=== PATIENT | male | born 1965 | race Two or more races ===

== ENCOUNTER 2022-12-16 13:32 | Outpatient (REF) | payer BC, SELFPAY ==
--- NOTE | ~2022-12-16 | XR_ITS ---
EXAMINATION: XR FOOT, RIGHT CLINICAL INFORMATION: Chronic ulcer of the port of right foot. COMPARISON: None available. TECHNIQUE: AP, lateral, and oblique views of the right foot. FINDINGS: Mild loss of PIP and DIP joints spaces 2nd through 5th digits is noted. There is dorsal intertarsal spurring and small calcaneal heel enthesophyte. There is a soft tissue abrasion ulceration along the plantar aspect of the great toe. No periosteal thickening or elevation to suspect any osteomyelitis. XR/XR foot RT min 3V IMPRESSION: Mild degenerative changes PIP and DIP joints. Soft tissue ulceration along the plantar aspect of the great toe. No underlying bony abnormality seen. There is no periosteal thickening or elevation to suspect any osteomyelitis.
== END 2022-12-16 13:33 | disposition home or self-care (01) ==
LOC: HO.XRAY 13:32
PROVIDERS: PCP Internal Medicine; Visit Provider Internal Medicine
DX: L97.519 Non-pressure chronic ulcer of other part of right foot with unspecified severity (principal)
CPT/HCPCS: 73630

== ENCOUNTER 2023-03-12 10:02 | Outpatient (REF) | payer BC, SELFPAY ==
[2023-03-12 10:19] LABS: MANUAL DIFF FLAG NO
[2023-03-12 10:44] LABS: Basophils Absolute Auto 0.1 X10*3/uL (0.0-0.2); Basophils Percent Auto 0.5 % (0-2); Eosinophils Absolute Auto 0.2 X10*3/uL (0.0-0.4); Eosinophils Percent Auto 1.7 % (0-4); Hematocrit 39.1 % (42.0-52.0); Hemoglobin 12.2 g/dl (14.0-18.0); Imm Gran Abs Auto 0.05 X10*3/uL (0.00-0.03); Imm Gran Pct Auto 0.4 % (0.0-0.4); Lymphocytes Absolute Auto 2.2 X10*3/uL (1.2-4.9); Lymphocytes Percent Auto 19.1 % (20-40); Mean Corpuscular HGB Conc 31.2 g/dl (31.0-36.0); Mean Corpuscular Hemoglobin 27.4 pg (27.0-33.0); Mean Corpuscular Volume 87.7 fL (80.0-98.0); Mean Platelet Volume 9.6 fL (9.4-12.4); Monocytes Absolute Auto 1.2 X10*3/uL (0.1-1.2); Monocytes Percent Auto 10.3 % (2-11); Neutrophils Absolute Auto 7.8 x10*3/uL (2.0-8.3); Platelet Count 391 X10*3/uL (160-400); Red Blood Count 4.46 X10*6/uL (4.60-5.80); Red Cell Distribution Width 17.1 % (11.0-16.0); White Blood Count 11.4 X10*3/uL (4.8-10.8)
[2023-03-12 10:55] LABS: Estimated Average Glucose 286 mg/dL; Hemoglobin A1c % 11.6 %
[2023-03-12 11:33] LABS: Alanine Aminotransferase 14 U/L (0-40); Albumin Level 3.7 g/dL (3.5-5.0); Alkaline Phosphatase 61 U/L (39-117); Anion Gap 16 (12-20); Aspartate Amino Transferase 16 U/L (5-37); Bilirubin Total 0.3 mg/dL (0.0-1.0); Blood Urea Nitrogen 9 mg/dL (9-16); Calcium 9.2 mg/dL (8.4-10.2); Carbon Dioxide 29 mmol/L (22-29); Chloride 99 mmol/L (96-108); Cholesterol 122 mg/dL; Estimated Glomerular Filt Rate > 60; Glucose Fasting 187 mg/dL (60-99); HDL Cholesterol 24 mg/dL; LDL Cholesterol Calculated 76 mg/dl; Potassium 4.1 mmol/L (3.3-5.1); Sodium 140 mmol/L (135-145); Total Protein 7.5 g/dL (6.5-8.0); Triglycerides 114 mg/dL
[2023-03-12 11:50] LABS: TSH reflex Free T4 3.01 uIU/mL (0.32-4.0); Vitamin D 25-OH Total 11.2 ng/mL (>30)
[2023-03-12 11:58] LABS: Appearance Urine Clear; Color Urine Yellow; Glucose Urine UA Negative (Negative); Leukocyte Esterase Urine Negative (Negative); Nitrite Urine Negative (Negative); PH 6.5 (5.0-9.0); Specific Gravity - Urine <= 1.005 (1.005-1.025); Urine Blood Negative (Negative); Urine Ketones Negative (Negative); Urine Protein Negative (Neg-Trace)
[2023-03-12 12:41] LABS: Creatinine Urine 23.24 mg/dL; Microalbum/Creatinine Ratio Ur 21.5 ug/mg cr
== END 2023-03-12 10:03 | disposition home or self-care (01) ==
LOC: HO.LAB 10:02
PROVIDERS: PCP Internal Medicine; Visit Provider Internal Medicine
DX: E11.9 Type 2 diabetes mellitus without complications (principal); R30.0 Dysuria; E55.9 Vitamin D deficiency, unspecified; I10 Essential (primary) hypertension; E78.00 Pure hypercholesterolemia, unspecified
CPT/HCPCS: 36415; 80053; 80061; 81003; 82043; 82306; 83036; 84443; 85025

== ENCOUNTER 2023-03-14 14:11 | Outpatient (AMB) | payer BC, SELFPAY ==
[2023-03-14 14:18] VITALS: BP 122/78; PULSE 67; O2SAT 95; BMI 38.1
--- NOTE | 2023-03-14 14:18 | A.OFFPC_ITS ---
Vital Signs 03/14/23 14:18 Height 5 ft 11 in Weight 273 lb 2 oz BMI 38.1 BP 122/78 Blood Pressure Location Lt brachial Position Sitting Pulse 67 Pulse Source Pulse Oximeter Pulse Oximetry (%) 95 Oxygen Delivery Method Room Air Intake Visit Reasons: DM, hyperlipidemia, chronic AF, neuropathy, COPD Senior Statistician Required: No Accompanied by: Self / Same As Patient Allergies bupropion Adverse Reaction (Severe, Verified 03/16/23 17:41) manic olanzapine Adverse Reaction (Severe, Verified 03/16/23 17:41) weight gain sulfa drugs Allergy (Severe, Uncoded 03/16/23 17:41) Rash Medication List - Last Reconciled 03/16/23 by Phil Voss MD atorvastatin 20 mg PO BEDTIME cariprazine (Vraylar) 4.5 mg PO DAILY cholecalciferol (vitamin D3) 50 mcg PO DAILY 90 days clonazepam 1 mg PO BEDTIME divalproex ER (Depakote ER) 1,000 mg PO DAILY [id number]-qcrytgmiu-fimsnlpk 100-62.5-25 mcg (Trelegy Ellipta) 1 inh inhalation DAILY gabapentin 600 mg PO TID 90 days insulin glargine (Basaglar KwikPen U-100 Insulin) 42 units subcut QAM insulin lispro (Humalog KwikPen (U-100) Insulin) 10 units subcut TID metformin 2,000 mg PO BEDTIME metoprolol succinate ER 50 mg PO DAILY rivaroxaban (Xarelto) 20 mg PO QPM Tobacco use date assessed: 03/14/23 Dental Screening Dental Screen Date: 03/14/23 Did you have a dental visit in the last 12 months?: Yes Did you have a dental problem in the last 6 months where you did not have access to dental care?: No Was dental information given to patient?: Patient has dentist HPI DM, hyperlipidemia, chronic AF, neuropathy, COPD HPI Details Patient comes in today for his follow up visit States that his suddenly earlier this week from a heart attack and he is still in shock regarding her sudden passing Admits that he has been having trouble remembering to take his lunch time and dinner time dose of Humalog regularly States that his used to be the one to help remind him to take his meds on time but now with her passing away, he does not know what to do He acknowledges that he has become very forgetful and his memory is failing lately; feels that he is starting to lose his cognitive abilities ever since his 2nd manic episode from September 2021 through October 2022, when his psychiatrist inexplicably took him off all of his meds and started him on Bupropion instead Recall that he did not do well at all on Bupropion and his symptoms started stabilizing again after they insisted that his psychiatrist start him back on all his previous medications He has been following up with Dr. Bowman at [facility] for his diabetes for a while now but does not feel that his condition is improving or under control and would like to see if he can be referred to somebody else to help control his diabetes better He denies any headaches or dizziness Denies any chest pains, no shortness of breath No nausea/ vomiting, no abdominal pain No change in bowel habits noted Needs his Gabapentin Rx refilled Had his follow-up labs done a couple of days ago - to discuss his results [facility] Medical History (Updated 03/16/23 @ 18:22 by Phil Voss MD) Asthma-COPD overlap syndrome Bipolar disorder Chronic atrial fibrillation Chronic ulcer of right foot Diabetes mellitus Diabetic neuropathy Insomnia Obesity (BMI 30-39.9) Pacemaker Pure hypercholesterolemia Vitamin D deficiency Surgical History Status post biventricular cardiac pacemaker insertion (~08/2021) Family History Other Mesothelioma Social History Housing: House Patient Tobacco Use Status: Former Tobacco user Tobacco use type: Cigarette e-Cigarette/Vaping Use: Currently Using Second Hand Smoke Exposure: No service: No Current occupational status: retired Current occupational exposures/hazards: No Cognitive needs: No Hearing needs: No Vision needs: No Questionnaire PHQ-9 Over the last 2 weeks, how often have you been bothered by any of the following problems? 1. Little interest or pleasure in doing things: more than half the days 2. Feeling down, depressed, or hopeless: more than half the days 3. Trouble falling or staying asleep, or sleeping too much: more than half the days 4. Feeling tired or having little energy: more than half the days 5. Poor appetite or overeating: more than half the days 6. Feeling bad about yourself - or that you are a failure or have let yourself or your family down: more than half the days 7. Trouble concentrating on things, such as reading the newspaper or watching television: more than half the days 8. Moving or speaking so slowly that other people could have noticed. Or the opposite - being so fidgety or restless that you have been moving around a lot more than usual: more than half the days 9. Thoughts that you would be better off or of hurting yourself in some way: not at all Total score: 16 Depression Screening Interpretation: Positive Depression Screening Follow-up: Existing condition and In treatment 88350 - PHQ-9 Billing: Yes Source: Developed by Drs. Tone Vogt, Dinora Damon, Jovan Shaikh and colleagues, with an educational kayla from [employer]. Thrive Questionnaire Date Thrive assessed: 03/14/23 I am a: Patient What is your living situation today?: I have a steady place to live Within the past 12 months, did the food you bought not last and you didn't have the money to get more?: Never true Within the past 12 months, did you worry whether your food would run out before you got money to buy more?: Never true Do you have trouble paying for medicines?: No Do you have trouble getting transportation to medical appointments?: No Do you have trouble paying your heating and electricity bill?: No Do you have trouble taking care of your child, family member or friend?: No Do you have trouble with day-to-day activities such as bathing, preparing meals, shopping, managing finances, etc.?: No Are you currently unemployed and looking for a job?: No Are you interested in more education?: No Currently or been in a relationship where the following occur: no concerns reported AUDIT C Alcohol Use Questionnaire (AUDIT-C) 1. How often do you have a drink containing alcohol?: Never 3. How often do you have six or more drinks on one occasion?: Never Total Score: 0 Score Reviewed/Action Taken: Yes TIMI-7 AMB Questionnaire TIMI-7 Date TIMI - 7 assessed: 03/14/23 Feeling nervous, anxious, or on edge: 2 = More than half the days Not being able to stop or control worryin = More than half the days Worrying too much about different things: 2 = More than half the days Trouble relaxin = More than half the days Being so restless that it is hard to sit still: 2 = More than half the days Becoming easily annoyed or irritable: 2 = More than half the days Feeling afraid as if something awful might happen: 2 = More than half the days Total ITMI-7 score (0-4 normal; 5-9 mild; 10-14 moderate; 15-21 severe): 14 Source: Developed by Drs. Tone Vgot, Dinora Damon, Jovan Shaikh and colleagues, with an educational kayla from [employer]. Review of Systems Const Denies chills, Denies fatigue, Denies fever(s) and Denies headache(s) ENT Denies dysphagia, Denies dizziness, Denies otalgia, Denies headache(s), Denies odynophagia and Denies sore throat Card Denies chest pain, Denies palpitations and Denies dyspnea Resp Denies cough and Denies dyspnea GI Denies abdominal pain, Denies constipation, Denies dysphagia, Denies heartburn, Denies diarrhea, Denies nausea, Denies odynophagia and Denies vomiting Denies dysuria, Reports nocturia and Reports urinary frequency Musc Reports numbness (both feet - chronic) Skin/Breast Details: (+) chronic ulcer on the ball of the right foot Neuro Denies dizziness, Denies headache(s), Reports memory loss and Reports numbness (both feet - chronic) Psych Reports memory loss Endo Denies fatigue and Denies palpitations Physical exam (Primary Care) Vital Signs: Last Vital Signs Pulse 67 03/14/23 14:18 BP 122/78 03/14/23 14:18 Pulse Ox 95 03/14/23 14:18 Oxygen Delivery Method Room Air 03/14/23 14:18 BMI result Body Mass Index 38.1 Tobacco/Smoking Status: Tobacco use Status Tobacco use date assessed 03/14/23 03/14/23 14:27 Patient Tobacco Use Status Former Tobacco user 03/14/23 14:27 Tobacco use type Cigarette 03/14/23 14:27 e-Cigarette/Vaping Use Currently Using 03/14/23 14:27 PHQ-9: PHQ-9 Score PHQ-9: Total score 16 03/14/23 15:05 Depression Screening Interpretation: Positive Depression Screening Follow-up: Existing condition and In treatment Thrive Assessment: Date of Thrive Assessment Date Thrive assessed 03/14/23 03/14/23 14:27 Currently or been in a relationship where the following occur: no concerns reported Const General: no acute distress and alert HENMT Ears: TM's normal bilaterally and EAC's normal Throat: Yes posterior oropharynx normal and Yes tonsils normal (no TP congestion) Neck Neck: Yes no lymphadenopathy and Yes supple Resp Auscultation: clear to auscultation bilaterally, no rales and no wheezes Cardio Rate: regular rate Rhythm: abnormal rhythm irregularly irregular Heart sounds: no murmurs GI Palpation (GI): Soft to palpation and nontender Auscultation: normal bowel sounds Skin Other: (+) chronic ulcer on the bottom of the right foot, just posterior to the ball of the foot Extrem General: Yes no clubbing, cyanosis or edema Right lower extremity: foot ((+) ulcer on the bottom of the foot) Results Reviewed Results Reviewed: Laboratory Tests 03/12/23 03/12/23 03/12/23 10:06 10:15 10:17 WBC 11.4 H Hgb 12.2 L Hct 39.1 L Plt Count 391 Sodium Potassium Creatinine Estimated GFR Fasting Glucose Hemoglobin A1c % Calcium Triglycerides Cholesterol LDL Cholesterol, Calc HDL Cholesterol 25-OH Vitamin D Total TSH Ur Specific [place] <= 1.005 Urine Protein Negative Urine Glucose (UA) Negative Urine Blood Negative Microalb/Creat Ratio 21.5 03/12/23 03/12/23 10:17 10:17 WBC Hgb Hct Plt Count Sodium 140 Potassium 4.1 Creatinine 1.16 Estimated GFR > 60 Fasting Glucose 187 H Hemoglobin A1c % 11.6 Calcium 9.2 Triglycerides 114 Cholesterol 122 LDL Cholesterol, Calc 76 HDL Cholesterol 24 25-OH Vitamin D Total 11.2 TSH 3.01 Ur Specific [place] Urine Protein Urine Glucose (UA) Urine Blood Microalb/Creat Ratio Assessment and Plan Assessment & Plan (1) Diabetes mellitus: Code(s): E11.9 - Type 2 diabetes mellitus without complications Qualifiers: Diabetes mellitus complication status: with hyperglycemia Diabetes mellitus fpc insulin use: with fpc use Diabetes mellitus type: type 2 Qualified Code(s): E11.65 - Type 2 diabetes mellitus with hyperglycemia; 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 Plan: HgbA1c was at 11.6% on his labs done a couple of days ago (in-office HgbA1c was at 10.9% a few months ago) - goal is <7.0% Reinforced diabetic diet Continue Basaglar 42 units Q AM, Humalog Kwikpen 10 units TID with meals and Metformin ER 2000 mg Q HS but patient admits that he has been having a hard time remembering to take his lunch time and dinner time dose of Humalog States that he has been struggling with his memory since his bipolar break from last year to early this year and feels that he is losing some of his cognitive abilities States that his , who was a retired nurse, was the one who was helping him with these but since she suddenly earlier this week, he does not know what he can do now and is looking for some help Will try referring him to [facility] for both medication administration and for wound care services on his chronic foot wound Patient also used to follow up with Dr. Bowman at [facility] for endocrinology but would like to try seeing someone else as he does not feel like seeing Dr. Bowman is working out for him Will try referring him to Dr. Sauer instead (2) Diabetic neuropathy: Code(s): E11.40 - Type 2 diabetes mellitus with diabetic neuropathy, unspecified Qualifiers: Diabetes mellitus complication detail: diabetic autonomic neuropathy Diabetes mellitus type: type 2 Qualified Code(s): E11.43 - Type 2 diabetes mellitus with diabetic autonomic (poly)neuropathy Plan: Continue Gabapentin 600 mg TID (3) Chronic ulcer of right foot: Comment: on the ball of the foot Code(s): L97.519 - Non-pressure chronic ulcer of other part of right foot with unspecified severity Qualifiers: Non-pressure ulcer stage: unspecified non-pressure ulcer stage Qualified Code(s): L97.519 - Non-pressure chronic ulcer of other part of right foot with unspecified severity Plan: Right foot x-rays done a few months ago in December 2022 revealed (+) mild degenerative changes PIP and DIP joints and soft tissue ulceration along the plantar aspect of the great toe with NO underlying bony abnormality seen and NO periosteal thickening or elevation to suggest any osteomyelitis He used to follow up with [facility] in [place] but with his 's sudden passing, does not know if he can continue to go see them Will try referring him to [facility] for wound care services (4) Pure hypercholesterolemia: Code(s): E78.00 - Pure hypercholesterolemia, unspecified Plan: Results of his labs done a couple of days ago reviewed and discussed with patient Reinforced low cholesterol diet Continue Atorvastatin 20 mg QD Will have patient recheck his labs in 3 months for follow up (5) Chronic atrial fibrillation: Code(s): I48.20 - Chronic atrial fibrillation, unspecified Plan: S/P pacemaker insertion in August 2021 Patient currently remains asymptomatic Continue Xarelto 20 mg Q PM for thromboembolism prophylaxis Follow up with cardiology and with EPS specialist in [place] as scheduled (6) Asthma-COPD overlap syndrome: Code(s): J44.9 - Chronic obstructive pulmonary disease, unspecified Plan: Continue Trelegy Ellipta 100-62.5-25 mcg 1 inhalation QD and Albuterol HFA 2 inhalations Q 6 hours PRN Follow up with pulmonary as scheduled (7) Vitamin D deficiency: Code(s): E55.9 - Vitamin D deficiency, unspecified Plan: Patient is advised that his vitamin-D level was very low on his recent labs Will start him on Vitamin D3 2000 units QD (8) Insomnia: Code(s): G47.00 - Insomnia, unspecified Qualifiers: Insomnia type: unspecified Qualified Code(s): G47.00 - Insomnia, unspecified Plan: Sleep hygiene reinforced Continue Temazepam 7.5 mg Q HS PRN (9) Bipolar disorder: Code(s): F31.9 - Bipolar disorder, unspecified Qualifiers: Active/Remission status: currently active Current bipolar episode type: mixed Current episode severity: unspecified Qualified Code(s): F31.60 - Bipolar disorder, current episode mixed, unspecified Plan: Continue Vraylar 4.5 mg QD and Depakote ER 1000 mg QD Follow up with psychiatric nurse ([employer] [employer]) at [facility] in [place], [place] as scheduled Patient was also reportedly evaluated further by psychiatry up at the [facility] in [place] a couple of months ago - states that this was a second opinion with regards to his diagnoses of bipolar disorder as he feels that he was wrongfully diagnosed in the past (10) Obesity (BMI 30-39.9): Code(s): E66.9 - Obesity, unspecified Plan: Reinforced diet and weight loss; exercise is unrealistic given his neuropathy and multiple comorbidities Plan Follow up in 3 months Orders: Orders Hemoglobin A1c 3 Months E11.9 - Type 2 diabetes mellitus without complications Lipid Panel 3 Months E78.00 - Pure hypercholesterolemia, unspecified Comprehensive [place]. Panel Fast 3 Months E78.00 - Pure hypercholesterolemia, unspecified Complete Blood Count Auto Diff 3 Months I10 - Essential (primary) hypertension Vitamin B12 and Folate 3 Months E53.8 - Deficiency of other specified B group vitamins TSH reflex Free T4 3 Months E78.00 - Pure hypercholesterolemia, unspecified Vitamin D 25-OH Total 3 Months E55.9 - Vitamin D deficiency, unspecified Microalbumin, Random (w Creat) 3 Months E11.9 - Type 2 diabetes mellitus without complications UA CC w/rflx Micro + Cult 3 Months R30.0 - Dysuria Referrals Endocrinology Referral E11.9 - Type 2 diabetes mellitus without complications [facility] Referral E11.9 - Type 2 diabetes mellitus without complications, F31.9 - Bipolar disorder, unspecified, L97.519 - Non-pressure chronic ulcer of other part of right foot with unspecified severity Medications: New cholecalciferol (vitamin D3) 50 mcg PO DAILY 90 days 90 caps 3RF E55.9 - Vitamin D deficiency, unspecified Changed From gabapentin 600 mg PO TID To gabapentin 600 mg PO TID 90 days 270 tabs 1RF Coding Level of Care Code Est Pt Level 4 (93786) Diagnoses Diabetes mellitus E11.65; Z79.4 Diabetes mellitus complication status: with hyperglycemia 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: with bowling ball molder use Diabetes mellitus type: type 2 Diabetic neuropathy E11.43 Diabetes mellitus complication detail: diabetic autonomic neuropathy Diabetes mellitus type: type 2 Chronic ulcer of right foot L97.519 Non-pressure ulcer stage: unspecified non-pressure ulcer stage Pure hypercholesterolemia E78.00 Chronic atrial fibrillation I48.20 Asthma-COPD overlap syndrome J44.9 Vitamin D deficiency E55.9 Insomnia G47.00 Insomnia type: unspecified Bipolar disorder F31.60 Active/Remission status: currently active Current bipolar episode type: mixed Current episode severity: unspecified Obesity (BMI 30-39.9) E66.9
== END 2023-03-14 15:14 | disposition home or self-care (01) ==
PROVIDERS: PCP Internal Medicine; Visit Provider Internal Medicine
DX: E11.65 Type 2 diabetes mellitus with hyperglycemia (principal); Z79.4 Long term (current) use of insulin; F31.60 Bipolar disorder, current episode mixed, unspecified; E55.9 Vitamin D deficiency, unspecified; E11.43 Type 2 diabetes mellitus with diabetic autonomic (poly)neuropathy; L97.519 Non-pressure chronic ulcer of other part of right foot with unspecified severity; E78.00 Pure hypercholesterolemia, unspecified; I48.20 Chronic atrial fibrillation, unspecified; J44.9 Chronic obstructive pulmonary disease, unspecified; G47.00 Insomnia, unspecified; E66.9 Obesity, unspecified
CPT/HCPCS: 99214

== ENCOUNTER 2023-04-16 12:15 | Emergency (ER) | payer BC, SELFPAY ==
--- NOTE | ~2023-04-16 | XR_ITS ---
EXAMINATION: XR CHEST 2 VIEW CLINICAL INFORMATION: Shortness of breath COMPARISON: None TECHNIQUE: PA and lateral views of the chest obtained. FINDINGS: A left subclavian conduction device is present. Patchy airspace opacities are evident in the left lower lobe. Minimal linear scar or atelectasis is present at the right lung base. There are no pleural effusions. The cardiomediastinal silhouette is unremarkable. XR/XR chest 2V IMPRESSION: 1. Left lower lobe airspace opacities compatible with atelectasis or pneumonia. Follow-up is recommended to confirm clearing.
[2023-04-16 12:23] VITALS: BP 116/62; PULSE 62; RESP 20; TEMP 36.6; O2SAT 96; BMI 41.4
--- NOTE | 2023-04-16 12:27 | ED.GENADULT ---
HPI - General Adult General Chief complaint: Upper Respiratory Symptoms Stated complaint: COVID Symptoms Sent by [facility] Time Seen by Provider: 04/16/23 12:30 Source: patient Mode of arrival: ambulatory Limitations: no limitations History of Present Illness HPI narrative: 57 y/o history of AFib on Xarelto, COPD/ asthma, HLD, DM, bipolar disorder who presents to the ER for evaluation of 1 week of productive cough, shortness of breath and some headaches. He states he has been bringing up yellow phlegm. He has been around people who have had COVID. He states his symptoms when worsening over the last week. He wears a smart watch that reported a desaturation in his oxygen level to 87% that red 15 hours ago. He denies any changes in his heart rates noted on the watch. He denies any chest pain. He states he is sore all over from coughing. His cough is keeping him up at night. MD complaint: Productive cough and shortness of breath Onset (ago): week(s) (1) Location: chest Radiation: non-radiation Severity: moderate Quality: aching Pain Consistency: constant Relieving factors: rest Exacerbating factors: movement Associated symptoms: cough, fever/chills, headaches, loss of appetite, malaise and shortness of breath Treatments prior to arrival: none Related Data Home Medications Medication Instructions Recorded Confirmed atorvastatin 20 mg tablet 20 mg PO BEDTIME 12/11/22 03/16/23 cariprazine 4.5 mg capsule 4.5 mg PO DAILY 12/11/22 03/16/23 (Vraylar) divalproex 500 mg tablet,extended 1,000 mg PO DAILY 12/11/22 03/16/23 release 24 hr (Depakote ER) fluticasone fur. 100 mcg-umeclid 1 inh inhalation DAILY 12/11/22 03/16/23 62.5 mcg-vilant 25 mcg inhalat.powder (Trelegy Ellipta) insulin glargine 100 unit/mL (3 42 unit subcut QAM 12/11/22 03/16/23 mL) subcutaneous pen (Basaglar KwikPen U-100 Insulin) insulin lispro 100 unit/mL 10 unit subcut TID 12/11/22 03/16/23 subcutaneous pen (Humalog KwikPen (U-100) Insulin) metformin 500 mg tablet 2,000 mg PO BEDTIME 12/11/22 03/16/23 rivaroxaban 20 mg tablet (Xarelto) 20 mg PO QPM 12/11/22 03/16/23 clonazepam 1 mg tablet 1 mg PO BEDTIME 03/14/23 03/16/23 metoprolol succinate 50 mg 50 mg PO DAILY 03/14/23 03/16/23 tablet,extended release 24 hr Previous Rx's Medication Instructions Recorded cholecalciferol (vitamin D3) 50 50 mcg PO DAILY 90 days #90 caps 03/14/23 mcg (2,000 unit) capsule gabapentin 600 mg tablet 600 mg PO TID 90 days #270 tabs 03/14/23 amoxicillin-potassium clavulanate 1 tab PO BID 7 days #14 tabs 04/16/23 1,000 mg-62.5 mg tablet,ext.rel 12hr (Augmentin XR) azithromycin 250 mg tablet See Rx Instructions PO .COMPLEX #6 04/16/23 (Zithromax Z-Rock) tabs prednisone 50 mg tablet 50 mg PO DAILY 5 days #5 tabs 04/16/23 Allergies Allergy/AdvReac Type Severity Reaction Status Date / Time bupropion AdvReac Severe manic Verified 04/16/23 12:28 olanzapine AdvReac Severe weight gain Verified 04/16/23 12:28 sulfa drugs Allergy Severe Rash Uncoded 04/16/23 12:28 Review of Systems Review of Systems: Yes all other systems are reviewed and are negative [facility] Past Medical History Medical History (Updated 04/16/23 @ 14:56 by ISMA Villavicencio) Vitamin D deficiency Chronic ulcer of right foot Diabetic neuropathy Bipolar disorder Chronic atrial fibrillation Asthma-COPD overlap syndrome Obesity (BMI 30-39.9) Insomnia Pure hypercholesterolemia Diabetes mellitus Pacemaker Surgical History Status post biventricular cardiac pacemaker insertion (~08/2021) Family History Family History Other Mesothelioma Social History Social History Housing: House Patient Tobacco Use Status: Former Tobacco user Tobacco use type: Cigarette e-Cigarette/Vaping Use: Currently Using Second Hand Smoke Exposure: No Advance Directives: No service: No Current occupational status: retired Current occupational exposures/hazards: No Cognitive needs: No Hearing needs: No Vision needs: No Physical Exam ED Vital Signs: Vital Signs - 24 hr 04/16/23 12:23 Temperature 97.8 F Pulse Rate 62 Respiratory Rate 20 Blood Pressure 116/62 Pulse Oximetry 96 Oxygen Delivery Method Room Air BMI result Body Mass Index 41.4 Appearance: Alert. Oriented X3. No acute distress. Head: normocephalic, atraumatic. Eyes: Pupils equal, round and reactive to light. ENT: Pharynx normal. No tonsillar swelling or exudate. Neck: Normal inspection. Neck supple. CVS: Normal heart rate and rhythm. Pulses normal. Respiratory: No respiratory distress. Breath sounds diminished at bilateral bases, no wheezes or rhonchi. Abdomen: Soft and nontender. +BS x4 Skin: Skin warm and dry. Normal skin color. Normal skin turgor. No rashes. Extremities: No lower extremity edema. No joint swelling. Neuro/psych: Oriented X 3. No motor deficit. No sensory deficit. CN II-XII intact. Normal speech and cognition. Course Course Course Narrative: RME- 57 year old male presents for evaluation of cough and shortness of breath for the last week. Plan for covid swab and chest x-ray. Denies chest pain, vitals are stable Medical Decision Making Medical Decision Making MDM Narrative: 49-year-old male with history of asthma/ COPD, bipolar, AFib on Xarelto, status post permanent pacemaker, diabetes, HLD who presents to the ER for evaluation of productive cough and shortness of breath for the last 1 week. On arrival to the ER his vital signs are stable. He has no wheezing on examination and is breathing comfortably. He has some bilateral diminished breath sounds but no adventitious breath sounds. His heart is regular. He is not tachycardic. Chest x-ray showed left lower lobe opacity consistent with possible pneumonia vs atelectasis. he does have positive for COVID-19. No role for Paxlovid given his sxs 7 days. will cover for possible superimposed bacterial pneumonia with azithromycin for atypical coverage in Augmentin for community-acquired pneumonia. He was ambulated in the emergency department and had no desaturations. He had no shortness of breath or dyspnea. At this time he is stable for discharge home with course of prednisone and antibiotics. He will use albuterol inhaler and nebulizer as needed for shortness of breath and wheezing. Recommended close outpatient follow-up and strict return precautions were given to the patient. Stable for discharge home. Differential Diagnosis Differential Diagnoses: The differential diagnosis associated with the presentation includes strep, covid, flu, rsv, other viral syndrome, bronchitis, pneumonia, COPD exacerbation, CHF exacerbation, doubt PE he is already anticoagulation Admission/Observation Consideration of admission/observation: Escalation of care including admission/observation considered multiple comorbidities with shortness of breath, considered observation/admission Lab Data MDM Lab Attestation statement: I reviewed the patient's lab results. Labs: Lab Results 04/16/23 Range/Units 12:25 COVID-19 (ALICIA) Positive A (Negative) COVID-19 Clin Com See Note Independent Interpretation I performed an independent interpretation of an: Plain X-Ray Interpretation: LLL opacity, agree w/ radiology read Radiology Impression Discussion of test interpretation with radiology: I have reviewed the radiologist's reading. Radiologist Impression: EXAMINATION: XR CHEST 2 VIEW CLINICAL INFORMATION: Shortness of breath COMPARISON: None TECHNIQUE: PA and lateral views of the chest obtained. FINDINGS: A left subclavian conduction device is present. Patchy airspace opacities are evident in the left lower lobe. Minimal linear scar or atelectasis is present at the right lung base. There are no pleural effusions. The cardiomediastinal silhouette is unremarkable. XR/XR chest 2V IMPRESSION: 1. Left lower lobe airspace opacities compatible with atelectasis or pneumonia. Follow-up is recommended to confirm clearing. External Record Review External record reviewed: Office record, Outpatient record and Prior outpatient labs Tests considered The following testing was considered but not selected: considered EKG and labs Prescription Management I considered prescription management with: Antiviral and Antibiotic Chronic Conditions Patient?s care impacted by: Hypertension and Other (asthma/COPD, afib) Critical Care Time Critical Care Time Critical Care Time: No Discharge Plan Discharge Clinical Impression: COVID-19 Patient Disposition: Home, Self-Care Instructions: Covid-19 Viral Syndrome and Novel Coronavirus (ED) Hey/Ath Additional Instructions: You were found to be COVID-19 POSITIVE today. Your lung exam and oxygen levels were normal. Your chest x-ray showed possible left lower lobe pneumonia. If you develop new or worsening symptoms call 911 or come back to the ER for further evaluation. Recommend getting an [id number] her pulse oximeter to monitor your oxygen saturations at home. Rest. Drink plenty of fluids. Do not go out in public while you are not feeling well. Take over the counter cold/flu medications as needed for your symptoms. Take Tylenol and/or Motrin as needed for fevers and body aches. Follow up with your doctor this week. If you shortness of breath worsens, if you develop difficulty breathing or any other concerning symptom come back to the ER for further evaluation. Prescriptions: New azithromycin [Zithromax Z-Rock] 250 mg tablet See Rx Instructions .ROUTE .COMPLEX Qty: 6 0RF Rx Instructions: take 500 mg today (day 1), then 250 mg for 4 days (days 2-5) amoxicillin-pot clavulanate [Augmentin XR] 1,000-62.5 mg tablet extended release 12 hr 1 tab PO BID 7 Days Qty: 14 0RF prednisone 50 mg tablet 50 mg PO DAILY 5 Days Qty: 5 0RF No Action Trelegy Ellipta 100-62.5-25 mcg blister with device 1 inh inhalation DAILY atorvastatin 20 mg tablet 20 mg PO BEDTIME divalproex [Depakote ER] 500 mg tablet extended release 24 hr 1,000 mg PO DAILY metformin 500 mg tablet 2,000 mg PO BEDTIME Vraylar 4.5 mg capsule 4.5 mg PO DAILY insulin glargine [Basaglar KwikPen U-100 Insulin] 100 unit/mL (3 mL) insulin pen 42 unit subcut QAM insulin lispro [Humalog KwikPen Insulin] 100 unit/mL insulin pen 10 unit subcut TID Patient Comments: Patient take 10 units in the morning 10 units in the afternoon 12 units at night Xarelto 20 mg tablet 20 mg PO QPM Rx Instructions: must administer with evening meal clonazepam 1 mg tablet 1 mg PO BEDTIME Rx Instructions: administer 30 minutes before bedtime metoprolol succinate 50 mg tablet extended release 24 hr 50 mg PO DAILY gabapentin 600 mg tablet 600 mg PO TID 90 Days Qty: 270 1RF cholecalciferol (vitamin D3) 50 mcg (2,000 unit) capsule 50 mcg PO DAILY 90 Days Qty: 90 3RF Interventions: ED Discharge Assessment Last Done: 04/16/23 15:32 Discharge Date/Time: 04/16/23 15:33
[2023-04-16 12:54] LABS: COVID-19 Test Positive (Negative); IDNOW Serial# 9DB6401D
== END 2023-04-16 15:33 | disposition home or self-care (01) ==
PROVIDERS: Physician Assistant; Emergency Provider Emergency Medicine Emergency Medical Services; PCP Internal Medicine
DX: U07.1 COVID-19 (principal); R05.9 Cough, unspecified; R06.02 Shortness of breath; R51.9 Headache, unspecified; E11.8 Type 2 diabetes mellitus with unspecified complications; F17.290 Nicotine dependence, other tobacco product, uncomplicated; Z79.4 Long term (current) use of insulin; Z79.84 Long term (current) use of oral hypoglycemic drugs; Z79.899 Other long term (current) drug therapy
CPT/HCPCS: 71046; 87635; 99282; 99283

== ENCOUNTER 2023-05-27 11:42 | Outpatient (AMB) | payer BC, SELFPAY ==
[2023-05-27 12:33] VITALS: BP 120/80; PULSE 60; O2SAT 96; BMI 39.3
--- NOTE | 2023-05-27 12:33 | MHC.PC.OV ---
Vital Signs 05/27/23 12:33 Height 5 ft 10 in Weight 274 lb BMI 39.3 BP 120/80 Blood Pressure Location Lt brachial Position Sitting Pulse 60 Pulse Source Pulse Oximeter Pulse Oximetry (%) 96 Oxygen Delivery Method Room Air Intake Visit Reasons: left hand tremor/3 month f/u Health Science Instructor Required: No Accompanied by: Self / Same As Patient Allergies bupropion Adverse Reaction (Severe, Verified 06/02/23 03:05) manic olanzapine Adverse Reaction (Severe, Verified 06/02/23 03:05) weight gain sulfa drugs Allergy (Severe, Uncoded 06/02/23 03:05) Rash Medication List - Last Reconciled 06/02/23 by Phil Voss MD amiodarone 200 mg PO BID amoxicillin-pot clavulanate 1,000-62.5 mg (Augmentin XR) 1 tab PO BID 7 days atorvastatin 20 mg PO BEDTIME azithromycin (Zithromax Z-Rock) take 500 mg today (day 1), then 250 mg for 4 days (days 2-5) cariprazine (Vraylar) 4.5 mg PO DAILY cholecalciferol (vitamin D3) 50 mcg PO DAILY 90 days clonazepam 1 mg PO BID divalproex ER (Depakote ER) 2,000 mg PO DAILY [id number]-jljtqgbun-vtjzaeyw 100-62.5-25 mcg (Trelegy Ellipta) 1 inh inhalation DAILY gabapentin 600 mg PO TID 90 days insulin glargine (Basaglar KwikPen U-100 Insulin) 42 units subcut QAM insulin lispro (Humalog KwikPen (U-100) Insulin) 10 units subcut TID metformin 2,000 mg PO BEDTIME metoprolol succinate ER 50 mg PO DAILY prednisone 50 mg PO DAILY 5 days rivaroxaban (Xarelto) 20 mg PO QPM Tobacco use date assessed: 05/27/23 Dental Screening Dental Screen Date: 05/27/23 Did you have a dental visit in the last 12 months?: Yes Did you have a dental problem in the last 6 months where you did not have access to dental care?: No Was dental information given to patient?: Patient has dentist HPI left hand tremor/3 month f/u HPI Details Patient comes in today for his follow up visit States that he continues to have on and off tremors in his left hand, which have been going on since October 2022 and he thinks are from his Vraylar Rx, which he is still currently on at 6 mg QD He was also reportedly brought to the ER by EMS a couple of weeks ago on 05/14/2023 after he was pulled over by police for driving down the wrong side of the road and he also reportedly took a while to machine puller and stop when he was advised to Work ups done in the ER, including labs, EKG, CXR and head CT, all came back negative Patient thought that maybe hypoglycemia played a role in his recent event but his RBS was at 190 mg/dl when checked by EMS on site; his serum glucose level also came back at 213 mg/dl when rechecked at the ER He did test positive for COVID last month when he presented to the ER with more than a week of increased coughing and congestion - was started on Azithromcyin and oral Prednisone then His chest x-rays then also showed (+) beginning LLL pneumonia States that he still feels tired a lot and thinks that he has not yet completely recovered from his bout with COVID He was advised to stay overnight for further evaluation but he declined and ended up taking a cab home He presently denies any fever, headaches or dizziness Denies any chest pains, no SOB No nausea/vomiting, no abdominal pain No change in bowel habits noted States that he 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 following his recent police encounter [facility] Medical History Vitamin D deficiency Chronic ulcer of right foot Diabetic neuropathy Bipolar disorder Chronic atrial fibrillation Asthma-COPD overlap syndrome Obesity (BMI 30-39.9) Insomnia Pure hypercholesterolemia Diabetes mellitus Pacemaker Surgical History Status post biventricular cardiac pacemaker insertion (~08/2021) Family History Other Mesothelioma Social History Housing: House Patient Tobacco Use Status: Former Tobacco user Tobacco use type: Cigarette e-Cigarette/Vaping Use: Currently Using Second Hand Smoke Exposure: No service: No Current occupational status: retired Current occupational exposures/hazards: No Cognitive needs: No Hearing needs: No Vision needs: No Questionnaire PHQ-9 Over the last 2 weeks, how often have you been bothered by any of the following problems? 1. Little interest or pleasure in doing things: more than half the days 2. Feeling down, depressed, or hopeless: more than half the days 3. Trouble falling or staying asleep, or sleeping too much: more than half the days 4. Feeling tired or having little energy: more than half the days 5. Poor appetite or overeating: more than half the days 6. Feeling bad about yourself - or that you are a failure or have let yourself or your family down: more than half the days 7. Trouble concentrating on things, such as reading the newspaper or watching television: more than half the days 8. Moving or speaking so slowly that other people could have noticed. Or the opposite - being so fidgety or restless that you have been moving around a lot more than usual: more than half the days 9. Thoughts that you would be better off or of hurting yourself in some way: not at all Total score: 16 Depression Screening Interpretation: Positive Depression Screening Follow-up: Existing condition and In treatment Depression Screening Done: Yes 92404 - PHQ-9 Billing: Yes Source: Developed by Drs. Tone Vogt, Dinora Damon, Jovan Shaikh and colleagues, with an educational kayla from [employer]. Thrive Questionnaire Date Thrive assessed: 05/27/23 I am a: Patient What is your living situation today?: I have a steady place to live Within the past 12 months, did the food you bought not last and you didn't have the money to get more?: Never true Within the past 12 months, did you worry whether your food would run out before you got money to buy more?: Never true Do you have trouble paying for medicines?: No Do you have trouble getting transportation to medical appointments?: No Do you have trouble paying your heating and electricity bill?: No Do you have trouble taking care of your child, family member or friend?: No Do you have trouble with day-to-day activities such as bathing, preparing meals, shopping, managing finances, etc.?: No Are you currently unemployed and looking for a job?: No Are you interested in more education?: No Please select the resources that you would like help with: None Currently or been in a relationship where the following occur: no concerns reported AUDIT C Alcohol Use Questionnaire (AUDIT-C) 1. How often do you have a drink containing alcohol?: Never 3. How often do you have six or more drinks on one occasion?: Never Total Score: 0 Score Reviewed/Action Taken: Yes TIMI-7 AMB Questionnaire TIMI-7 Date TIMI - 7 assessed: 05/27/23 Feeling nervous, anxious, or on edge: 2 = More than half the days Not being able to stop or control worryin = More than half the days Worrying too much about different things: 2 = More than half the days Trouble relaxin = More than half the days Being so restless that it is hard to sit still: 2 = More than half the days Becoming easily annoyed or irritable: 2 = More than half the days Feeling afraid as if something awful might happen: 2 = More than half the days Total TIMI-7 score (0-4 normal; 5-9 mild; 10-14 moderate; 15-21 severe): 14 Source: Developed by Drs. Tone Vogt, Dinora Damon, Jovan Shaikh and colleagues, with an educational kayla from [employer]. Review of Systems Const Denies chills, Reports fatigue, Denies fever(s) and Denies headache(s) ENT Denies dysphagia, Denies dizziness, Denies otalgia, Denies headache(s), Denies odynophagia and Denies sore throat Card Denies chest pain, Denies palpitations and Denies dyspnea Resp Denies cough and Denies dyspnea GI Denies abdominal pain, Denies constipation, Denies dysphagia, Denies heartburn, Denies diarrhea, Denies nausea, Denies odynophagia and Denies vomiting Denies dysuria, Reports nocturia and Reports urinary frequency Musc Reports numbness (both feet - chronic) Skin/Breast Details: (+) chronic ulcer on the ball of the right foot Denies rash Neuro Denies dizziness, Denies headache(s), Reports memory loss, Reports numbness (both feet - chronic) and Reports tremor(s) (on and off in the left hand - thinks is from his Vraylar Rx) Psych Reports memory loss Endo Reports fatigue and Denies palpitations Physical exam (Primary Care) Vital Signs: Last Vital Signs Pulse 60 05/27/23 12:33 BP 120/80 05/27/23 12:33 Pulse Ox 96 05/27/23 12:33 Oxygen Delivery Method Room Air 05/27/23 12:33 BMI result Body Mass Index 39.3 Tobacco/Smoking Status: Tobacco use Status Tobacco use date assessed 05/27/23 05/27/23 12:40 Patient Tobacco Use Status Former Tobacco user 05/27/23 12:40 Tobacco use type Cigarette 05/27/23 12:40 e-Cigarette/Vaping Use Currently Using 05/27/23 12:40 PHQ-9: PHQ-9 Score PHQ-9: Total score 16 05/27/23 12:59 Depression Screening Interpretation: Positive Depression Screening Follow-up: Existing condition and In treatment Thrive Assessment: Date of Thrive Assessment Date Thrive assessed 05/27/23 05/27/23 12:40 Currently or been in a relationship where the following occur: no concerns reported Const General: no acute distress and alert HENMT Ears: TM's normal bilaterally and EAC's normal Throat: Yes posterior oropharynx normal and Yes tonsils normal (no TP congestion) Neck Neck: Yes no lymphadenopathy and Yes supple Resp Auscultation: clear to auscultation bilaterally, no rales and no wheezes Cardio Rate: regular rate Rhythm: abnormal rhythm irregularly irregular Heart sounds: no murmurs GI Palpation (GI): Soft to palpation and nontender Auscultation: normal bowel sounds Skin Other: (+) chronic ulcer on the bottom of the right foot, just posterior to the ball of the foot Neuro Motor exam (neuro): Tremors during motor activity present (mild, of the left hand) Extrem General: Yes no clubbing, cyanosis or edema Right lower extremity: foot ((+) ulcer on the bottom of the foot) Assessment and Plan Assessment & Plan (1) Disorientation: Code(s): R41.0 - Disorientation, unspecified Plan: Patient was pulled over by police a couple of weeks ago on 05/14/2023 for driving down the wrong side of the road and also reportedly took a while to comply after he was asked to machine puller and stop According to police, he appears confused when they pulled him over and he was brought to the ER for further evaluation Work ups done in the ER all came back negative but 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 and he will need certification to get this reinstated Have advised patient that due to his recent circumstances, he should see neurology for evaluation and will need neurology to clear him again for driving - referral to neurology done (2) Tremor: Code(s): R25.1 - Tremor, unspecified Plan: Patient thinks that his left hand tremor is due to his Vraylar Rx and plans to speak to his treating psychiatrist about this Have advised that we will have neurology see him and evaluate him for this as well (3) Diabetes mellitus: Code(s): E11.9 - Type 2 diabetes mellitus without complications Qualifiers: Diabetes mellitus type: type 2 Diabetes mellitus emt intermediate insulin use: with intermediate use Diabetes mellitus complication status: with hyperglycemia Qualified Code(s): E11.65 - Type 2 diabetes mellitus with hyperglycemia; Z79.4 - senior living (current) use of insulin Plan: HgbA1c was at 11.6% when last checked a couple of months ago (in-office HgbA1c was at 10.9% back in December 2022) - goal is <7.0% Reinforced diabetic diet Continue Basaglar 42 units Q AM, Humalog Kwikpen 10 units TID with meals and Metformin ER 2000 mg Q HS Patient admitted to having a hard time remembering to take his lunch time and dinner time doses of Humalog recently since his suddenly a few months ago - states that his (who was a retired nurse) was the one who was helping him with his meds before she passed States that he has also been struggling with his memory since his bipolar break from last year to early this year and feels that he is losing some of his cognitive abilities We have previously referred him to [facility] for evaluation for both medication administration and wound care services on his chronic foot wound but we do not know where he stands on this right now Patient also used to follow up with Dr. Bowman at [facility] for endocrinology but would like to try seeing someone else as he does not feel like seeing Dr. Bowman is working out for him and we referred him to Dr. Sauer instead but he has not been seen yet (4) Diabetic neuropathy: Code(s): E11.40 - Type 2 diabetes mellitus with diabetic neuropathy, unspecified Qualifiers: Diabetes mellitus type: type 2 Diabetes mellitus complication detail: diabetic autonomic neuropathy Qualified Code(s): E11.43 - Type 2 diabetes mellitus with diabetic autonomic (poly)neuropathy Plan: Continue Gabapentin 600 mg TID (5) Chronic ulcer of right foot: Comment: on the ball of the foot Code(s): L97.519 - Non-pressure chronic ulcer of other part of right foot with unspecified severity Qualifiers: Non-pressure ulcer stage: unspecified non-pressure ulcer stage Qualified Code(s): L97.519 - Non-pressure chronic ulcer of other part of right foot with unspecified severity Plan: Right foot x-rays done a few months ago in December 2022 revealed (+) mild degenerative changes PIP and DIP joints and soft tissue ulceration along the plantar aspect of the great toe with NO underlying bony abnormality seen and NO periosteal thickening or elevation to suggest any osteomyelitis He continues to follow up with [facility] in [place] regularly for his right foot ulcer (6) Pure hypercholesterolemia: Code(s): E78.00 - Pure hypercholesterolemia, unspecified Plan: Reinforced low cholesterol diet Continue Atorvastatin 20 mg QD Will have patient recheck his labs and fasting lipids in 3 months for follow up (7) Chronic atrial fibrillation: Code(s): I48.20 - Chronic atrial fibrillation, unspecified Plan: S/P pacemaker insertion in August 2021 Patient currently remains asymptomatic from a cardiac standpoint Continue Xarelto 20 mg Q PM for thromboembolism prophylaxis Follow up with cardiology and with EPS specialist in [place] as scheduled (8) Asthma-COPD overlap syndrome: Code(s): J44.9 - Chronic obstructive pulmonary disease, unspecified Plan: Continue Trelegy Ellipta 100-62.5-25 mcg 1 inhalation QD and Albuterol HFA 2 inhalations Q 6 hours PRN Follow up with pulmonary as scheduled (9) Vitamin D deficiency: Code(s): E55.9 - Vitamin D deficiency, unspecified Plan: Continue Vitamin D3 2000 units QD (10) Insomnia: Code(s): G47.00 - Insomnia, unspecified Qualifiers: Insomnia type: unspecified Qualified Code(s): G47.00 - Insomnia, unspecified Plan: Sleep hygiene reinforced Continue Temazepam 7.5 mg Q HS PRN (11) Bipolar disorder: Code(s): F31.9 - Bipolar disorder, unspecified Qualifiers: Active/Remission status: currently active Current bipolar episode type: mixed Current episode severity: unspecified Qualified Code(s): F31.60 - Bipolar disorder, current episode mixed, unspecified Plan: Continue Vraylar 6 mg QD and Depakote ER 2000 mg QD Follow up with psychiatric nurse (MARINE PILOT) at [facility] in [place], [place] as scheduled Patient was also reportedly evaluated further by psychiatry up at the [facility] in [place] a couple of months ago - states that this was a second opinion with regards to his diagnoses of bipolar disorder as he feels that he was wrongfully diagnosed in the past (12) Obesity (BMI 30-39.9): Code(s): E66.9 - Obesity, unspecified Plan: Reinforced diet and weight loss; exercise is unrealistic given his neuropathy and multiple comorbidities Plan Follow up in 3 months Orders: Orders Comprehensive [place]. Panel Fast 3 Months E78.00 - Pure hypercholesterolemia, unspecified Hemoglobin A1c 3 Months E11.9 - Type 2 diabetes mellitus without complications Microalbumin, Random (w Creat) 3 Months E11.9 - Type 2 diabetes mellitus without complications UA CC w/rflx Micro + Cult 3 Months R30.0 - Dysuria Vitamin D 25-OH Total 3 Months E55.9 - Vitamin D deficiency, unspecified Complete Blood Count Auto Diff 3 Months I10 - Essential (primary) hypertension Lipid Panel 3 Months E78.00 - Pure hypercholesterolemia, unspecified TSH reflex Free T4 3 Months E78.00 - Pure hypercholesterolemia, unspecified Referrals Neurology Referral R25.1 - Tremor, unspecified Coding Level of Care Code Est Pt Level 4 (95816) Diagnoses Disorientation R41.0 Tremor R25.1 Type 2 diabetes mellitus with hyperglycemia, with long-term current use of insulin E11.65; Z79.4 Diabetes mellitus type: type 2 Diabetes mellitus intermediate insulin use: with emt intermediate use Diabetes mellitus complication status: with hyperglycemia Diabetic autonomic neuropathy associated with type 2 diabetes mellitus E11.43 Diabetes mellitus type: type 2 Diabetes mellitus complication detail: diabetic autonomic neuropathy Ulcer of foot, chronic, right, with unspecified severity L97.519 Non-pressure ulcer stage: unspecified non-pressure ulcer stage Pure hypercholesterolemia E78.00 Chronic atrial fibrillation I48.20 Asthma-COPD overlap syndrome J44.9 Vitamin D deficiency E55.9 Insomnia, unspecified type G47.00 Insomnia type: unspecified Bipolar affective disorder, current episode mixed, current episode severity unspecified F31.60 Active/Remission status: currently active Current bipolar episode type: mixed Current episode severity: unspecified Obesity (BMI 30-39.9) E66.9
== END 2023-05-27 13:02 | disposition home or self-care (01) ==
PROVIDERS: PCP Internal Medicine; Visit Provider Internal Medicine
DX: E11.65 Type 2 diabetes mellitus with hyperglycemia (principal); Z79.4 Long term (current) use of insulin; E11.43 Type 2 diabetes mellitus with diabetic autonomic (poly)neuropathy; L97.519 Non-pressure chronic ulcer of other part of right foot with unspecified severity; I48.20 Chronic atrial fibrillation, unspecified; J44.9 Chronic obstructive pulmonary disease, unspecified; F31.60 Bipolar disorder, current episode mixed, unspecified; R41.0 Disorientation, unspecified; R25.1 Tremor, unspecified; E78.00 Pure hypercholesterolemia, unspecified; E55.9 Vitamin D deficiency, unspecified; G47.00 Insomnia, unspecified
CPT/HCPCS: 99214

== ENCOUNTER 2024-11-05 15:55 | Outpatient (AMB) | payer BC, SELFPAY ==
--- NOTE | 2024-11-05 15:59 | MHC.PC.OV ---
Vital Signs 11/05/24 16:00 Height 5 ft 10 in Weight 271 lb 2 oz BMI 38.9 BP 124/68 Blood Pressure Location Lt brachial Position Sitting Pulse 81 Pulse Source Pulse Oximeter Pulse Oximetry (%) 92 Oxygen Delivery Method Room Air Intake Visit Reasons: annual exam/re-establish not seen since 2022 Diplomatic Interpreter Required: No Accompanied by: Self / Same As Patient Allergies Sulfa (Sulfonamide Antibiotics) Allergy (Severe, Verified 11/06/24 03:14) Rash bupropion Adverse Reaction (Severe, Verified 11/06/24 03:14) manic olanzapine Adverse Reaction (Severe, Verified 11/06/24 03:14) weight gain Medication List - Last Reconciled 11/07/24 by Phil Voss MD amiodarone 200 mg PO BID atorvastatin 20 mg PO BEDTIME cariprazine (Vraylar) 4.5 mg PO DAILY cholecalciferol (vitamin D3) 50 mcg PO DAILY 90 days clonazepam 1 mg PO DAILY divalproex ER (Depakote ER) 2,000 mg PO DAILY fpvossndono-ufpugghou-zcivrshn 100-62.5-25 mcg (Trelegy Ellipta) 1 inh inhalation DAILY insulin glargine (Basaglar KwikPen U-100 Insulin) 42 units subcut QAM insulin lispro (Humalog KwikPen (U-100) Insulin) 10 units subcut TID metformin 2,000 mg PO BEDTIME metoprolol succinate ER 50 mg PO DAILY pregabalin 200 mg PO BID rivaroxaban (Xarelto) 20 mg PO QPM Tobacco use date assessed: 11/05/24 Dental Screening Dental Screen Date: 11/05/24 Did you have a dental visit in the last 12 months?: Yes Did you have a dental problem in the last 6 months where you did not have access to dental care?: No Was dental information given to patient?: Patient has dentist HPI annual exam/re-establish not seen since 2022 HPI Details Patient comes in today for his annual physical examination and to reestablish care - he was last seen here almost a year and a half ago in May 2023 States that he was seeing another doctor up in [place] between his last appointment and now He currently has an non-healing wound/ulcer on the medial plantar aspect of his right foot and he has been seeing [facility] through [facility] over the past year or so for continuing wound care management and dressing changes He does have a diagnosis of severe neuropathy that was confirmed by EMG and NCV studies and corroborated by [facility] in [place] when he went to see them last year for a 2nd opinion Patient feels that his neuropathic symptoms have progressed over the past year or two he reports experiencing persistent numbness and tingling sensation in both lower legs and feet that feel slightly worse at night He denies any headaches or dizziness Denies any chest pains, no increased shortness of breath - states that his current inhaler (Trelegy Ellipta) help keep his COPD controlled No nausea/vomiting, no abdominal pain No change in bowel habits noted He denies any acute urinary symptoms - is still experiencing urinary frequency as well as occasional nocturia States that he had some labs done at [facility] a couple of months ago and recalls that his HgbA1c at the time was around the 9% rhea Adds that he is up-to-date with his colon cancer screening - supposedly had his screening colonoscopy done at [facility] a few years ago [facility] Medical History Vitamin D deficiency Chronic ulcer of right foot Diabetic neuropathy Bipolar disorder Chronic atrial fibrillation Asthma-COPD overlap syndrome Obesity (BMI 30-39.9) Insomnia Pure hypercholesterolemia Diabetes mellitus Pacemaker Surgical History Status post biventricular cardiac pacemaker insertion (~08/2021) Family History Other Mesothelioma Social History Housing: House Patient Tobacco Use Status: Former Tobacco user Tobacco use type: Cigarette e-Cigarette/Vaping Use: Currently Using Second Hand Smoke Exposure: No service: No Current occupational status: retired Current occupational exposures/hazards: No Cognitive needs: No Hearing needs: No Vision needs: No Questionnaire PHQ-9 Over the last 2 weeks, how often have you been bothered by any of the following problems? 1. Little interest or pleasure in doing things: several days 2. Feeling down, depressed, or hopeless: several days 3. Trouble falling or staying asleep, or sleeping too much: several days 4. Feeling tired or having little energy: several days 5. Poor appetite or overeating: several days 6. Feeling bad about yourself - or that you are a failure or have let yourself or your family down: several days 7. Trouble concentrating on things, such as reading the newspaper or watching television: several days 8. Moving or speaking so slowly that other people could have noticed. Or the opposite - being so fidgety or restless that you have been moving around a lot more than usual: several days 9. Thoughts that you would be better off or of hurting yourself in some way: not at all Total score: 8 Depression Screening Interpretation: Positive Depression Screening Follow-up: Existing condition and In treatment Depression Screening Done: Yes 88703 - PHQ-9 Billing: Yes Source: Developed by Drs. Tone Vogt, Dinora Damon, Jovan Shaikh and colleagues, with an educational kayla from [employer]. Thrive Questionnaire Date Thrive assessed: 11/05/24 I am a: Patient What is your living situation today?: I have a steady place to live Within the past 12 months, did the food you bought not last and you didn't have the money to get more?: Never true Within the past 12 months, did you worry whether your food would run out before you got money to buy more?: Never true Do you have trouble paying for medicines?: No Do you have trouble getting transportation to medical appointments?: No Do you have trouble paying your heating and electricity bill?: No Do you have trouble taking care of your child, family member or friend?: No Do you have trouble with day-to-day activities such as bathing, preparing meals, shopping, managing finances, etc.?: Yes Are you currently unemployed and looking for a job?: No Are you interested in more education?: No Please select the resources that you would like help with: Care for elder or disabled and Daily support Currently or been in a relationship where the following occur: No concerns reported THRIVE Score: 0 AUDIT C Alcohol Use Questionnaire (AUDIT-C) 1. How often do you have a drink containing alcohol?: Never 3. How often do you have six or more drinks on one occasion?: Never Total Score: 0 Score Reviewed/Action Taken: Yes TIMI-7 AMB Questionnaire TIMI-7 Date TIMI - 7 assessed: 11/05/24 Feeling nervous, anxious, or on edge: 2 = More than half the days Not being able to stop or control worryin = Several days Worrying too much about different things: 1 = Several days Trouble relaxin = More than half the days Being so restless that it is hard to sit still: 1 = Several days Becoming easily annoyed or irritable: 1 = Several days Feeling afraid as if something awful might happen: 1 = Several days Total TIMI-7 score (0-4 normal; 5-9 mild; 10-14 moderate; 15-21 severe): 9 Source: Developed by Drs. Tone Vogt, Dinora Damon, Jovan Shaikh and colleagues, with an educational kayla from [employer]. Review of Systems Const Denies chills, Denies fatigue, Denies fever(s), Denies headache(s), Denies malaise and Denies weakness Eyes Denies blurry vision, Denies change in vision, Denies irritation and Denies itchy eyes ENT Denies dysphagia, Denies dizziness, Denies otalgia, Denies headache(s), Denies nasal congestion, Denies neck pain, Denies odynophagia and Denies sore throat Card Denies chest pain, Denies rapid heart rate, Denies irregular heart rhythm, Denies palpitations and Denies dyspnea Resp Denies chest congestion, Denies cough, Denies dyspnea and Denies wheezing GI Denies abdominal pain, Denies bloating, Denies constipation, Denies dysphagia, Denies heartburn, Denies diarrhea, Denies nausea, Denies odynophagia and Denies vomiting Denies hematuria, Denies difficulty urinating, Denies dysuria, Reports nocturia, Reports urinary frequency and Denies urinary urgency Musc Denies back pain, Denies arthralgias, Denies joint swelling, Denies muscle weakness, Denies neck pain, Reports numbness (over both lower extremities) and Reports tingling (over both lower extremities) Skin/Breast Details: (+) poorly-healing chronic ulcer on the plantar aspect of the right foot Denies change in pigmentation, Denies rash and Denies unusual bruising Neuro Denies dizziness, Denies headache(s), Reports numbness (over both lower extremities), Reports tingling (over both lower extremities), Denies paresthesias and Denies weakness Endo Denies fatigue and Denies palpitations Aller/Immun Denies itchy eyes and Denies wheezing Physical exam (Primary Care) Vital Signs: Last Vital Signs Pulse 81 11/05/24 16:00 BP 124/68 11/05/24 16:00 Pulse Ox 92 11/05/24 16:00 Oxygen Delivery Method Room Air 11/05/24 16:00 BMI result Body Mass Index 38.9 Tobacco/Smoking Status: Tobacco use Status Tobacco use date assessed 11/05/24 11/05/24 16:08 Patient Tobacco Use Status Former Tobacco user 11/05/24 16:08 Tobacco use type Cigarette 11/05/24 16:08 e-Cigarette/Vaping Use Currently Using 11/05/24 16:08 PHQ-9: PHQ-9 Score PHQ-9: Total score 8 11/06/24 22:43 Depression Screening Interpretation: Positive Depression Screening Follow-up: Existing condition and In treatment Thrive Assessment: Date of Thrive Assessment Date Thrive assessed 11/05/24 11/05/24 16:08 Currently or been in a relationship where the following occur: No concerns reported Const General: no acute distress, alert and awake Orientation/consciousness: patient oriented x3 HENMT Head: Yes normocephalic and Yes atraumatic Ears: external ears normal, TM's normal bilaterally and EAC's normal General nose exam: No nasal discharge present Face and sinus: Yes normal facial exam and Yes sinuses nontender Teeth and gingiva: dentition normal Throat: Yes posterior oropharynx normal and Yes tonsils normal (no TP congestion) Eyes Eyelids: Yes eyelids normal Conjunctivae: conjunctivae normal Pupils: Equal, round and reactive pupils present EOM: EOMs intact bilaterally Neck Neck: Yes no lymphadenopathy and Yes supple Thyroid: Thyroid normal Resp Auscultation: clear to auscultation bilaterally, no rales and no wheezes Cardio Rate: regular rate Rhythm: abnormal rhythm irregularly irregular Heart sounds: no murmurs GI Palpation (GI): Soft to palpation, nontender and No hepatosplenomegaly present Auscultation: normal bowel sounds General: Yes no CVA tenderness Back/Spine/Pelvis Back: no CVA tenderness Thoracic/Lumbar Spine: thoracic and lumbar spine normal to inspection Skin Lesions: no lesions Rashes: no rashes Neuro General: patient oriented x3, moves all extremities, no focal motor deficits and CN's II-XI intact bilaterally Cranial nerves: Yes Equal, round and reactive pupils present Cognition (Neuro): normal cognition Gait exam (Neuro): Normal gait present Extrem Other: right foot is covered in bandages and is not examined General: Yes no clubbing, cyanosis or edema Coding Level of Care Code Est Pt Prev Care 40-64y(78146) Diagnoses Annual physical exam Z00.00 Type 2 diabetes mellitus with diabetic polyneuropathy, with long-term current use of insulin E11.42; Z79.4 Diabetes mellitus type: type 2 Diabetes mellitus termination clerk insulin use: with termination clerk use Diabetes mellitus complication status: with neurologic complications Diabetes mellitus complication detail: with polyneuropathy Diabetic autonomic neuropathy associated with type 2 diabetes mellitus E11.43 Diabetes mellitus type: type 2 Diabetes mellitus complication detail: diabetic autonomic neuropathy Ulcer of foot, chronic, right, with unspecified severity L97.519 Non-pressure ulcer stage: unspecified non-pressure ulcer stage Unsteady gait R26.81 Pure hypercholesterolemia E78.00 Chronic atrial fibrillation I48.20 Asthma-COPD overlap syndrome J44.9 Vitamin D deficiency E55.9 Insomnia, unspecified type G47.00 Insomnia type: unspecified Bipolar affective disorder, current episode mixed, current episode severity unspecified F31.60 Active/Remission status: currently active Current bipolar episode type: mixed Current episode severity: unspecified Obesity (BMI 30-39.9) E66.9 Additional Codes PHQ-9 - 72524 - PHQ-9 Billing: Yes ([id number]) Assessment & Plan Assessment & Plan (1) Annual physical exam: Code(s): Z00.00 - Encounter for general adult medical examination without abnormal findings Category: Medical Plan: Check labs He is reportedly up-to-date with his colon cancer screening - states that he last had his screening colonoscopy done at [facility] a few years ago We previously tried to obtain a copy of his colonoscopy records from [facility] without any success - will try to obtain documentation again (2) Diabetes mellitus: Code(s): E11.9 - Type 2 diabetes mellitus without complications Category: Medical Qualifiers: Diabetes mellitus type: type 2 Diabetes mellitus half-way insulin use: with half-way use Diabetes mellitus complication status: with neurologic complications Diabetes mellitus complication detail: with polyneuropathy Qualified Code(s): E11.42 - Type 2 diabetes mellitus with diabetic polyneuropathy; Z79.4 - watermaster (current) use of insulin Plan: Patient states that his HgbA1c was somewhere between 9.0 to 9.5% on his labs done at [facility] about 2 months ago - goal is at least <7.0% Reinforce diabetic diet Continue Basaglar 42 units Q AM, Humalog Kwikpen 10 units TID with meals and Metformin ER 2000 mg Q HS Follow-up with endocrinology at [facility] as scheduled We will try to obtain a copy of his office visit records from [facility] endocrinology for documentation (3) Diabetic neuropathy: Code(s): E11.40 - Type 2 diabetes mellitus with diabetic neuropathy, unspecified Category: Medical Qualifiers: Diabetes mellitus type: type 2 Diabetes mellitus complication detail: diabetic autonomic neuropathy Qualified Code(s): E11.43 - Type 2 diabetes mellitus with diabetic autonomic (poly)neuropathy Plan: He used to take Gabapentin 600 mg TID for his neuropathy but now appears to be on Pregabalin 200 mg BID, based on his Rx listed on his [facility] Rx log (4) Chronic ulcer of right foot: Comment: on the ball of the foot Code(s): L97.519 - Non-pressure chronic ulcer of other part of right foot with unspecified severity Category: Medical Qualifiers: Non-pressure ulcer stage: unspecified non-pressure ulcer stage Qualified Code(s): L97.519 - Non-pressure chronic ulcer of other part of right foot with unspecified severity Plan: Right foot x-rays done back in December 2022 revealed (+) mild degenerative changes PIP and DIP joints and soft tissue ulceration along the plantar aspect of the great toe with NO underlying bony abnormality seen and NO periosteal thickening or elevation to suggest any osteomyelitis He has been following up with [facility] in [place] regularly for his right foot ulcer over the past couple of years and will continue to do so (5) Unsteady gait: Code(s): R26.81 - Unsteadiness on feet Category: Medical Plan: Have advised patient that his unsteady gait and poor balance are most likely related to his diabetic neuropathy Per request, we will refer him to [facility] for evaluation for home physical therapy to help improve his gait and balance (6) Pure hypercholesterolemia: Code(s): E78.00 - Pure hypercholesterolemia, unspecified Category: Medical Plan: Reinforced low cholesterol diet Continue Atorvastatin 20 mg QD Will have patient recheck his labs and fasting lipids MICHI for follow up (7) Chronic atrial fibrillation: Code(s): I48.20 - Chronic atrial fibrillation, unspecified Category: Medical Plan: S/P pacemaker insertion in August 2021 Patient currently remains asymptomatic from a cardiac standpoint Continue Xarelto 20 mg Q PM for thromboembolism prophylaxis, Metoprolol ER 50 mg QD and Amiodarone 200 mg BID Follow up with cardiology and with EPS specialist in [place] as scheduled (8) Asthma-COPD overlap syndrome: Code(s): J44.9 - Chronic obstructive pulmonary disease, unspecified Category: Medical Plan: Continue Trelegy Ellipta 100-62.5-25 mcg 1 inhalation QD and Albuterol HFA 2 inhalations Q 6 hours PRN Follow up with pulmonary as scheduled (9) Vitamin D deficiency: Code(s): E55.9 - Vitamin D deficiency, unspecified Category: Medical Plan: Continue Vitamin D3 2000 units QD (10) Insomnia: Code(s): G47.00 - Insomnia, unspecified Category: Medical Qualifiers: Insomnia type: unspecified Qualified Code(s): G47.00 - Insomnia, unspecified Plan: Sleep hygiene reinforced He takes Clonazepam 1 mg Q HS 30 minutes before bedtime (11) Bipolar disorder: Code(s): F31.9 - Bipolar disorder, unspecified Category: Medical Qualifiers: Active/Remission status: currently active Current bipolar episode type: mixed Current episode severity: unspecified Qualified Code(s): F31.60 - Bipolar disorder, current episode mixed, unspecified Plan: Continue Vraylar 4.5 mg QD and Depakote ER 2000 mg QD Follow up with psychiatric nurse (METAL FABRICATING SUPERVISOR) at [facility] in [place], [place] as scheduled Patient was also reportedly evaluated further by psychiatry up at the [facility] in [place] a couple of months ago - states that this was a second opinion with regards to his diagnoses of bipolar disorder as he feels that he was wrongfully diagnosed in the past (12) Obesity (BMI 30-39.9): Code(s): E66.9 - Obesity, unspecified Category: Medical Plan: Reinforced diet/exercise as tolerated/lose weight Plan Follow-up in 3 months Orders: Orders Microalbumin, Random (w Creat) 11/05/24 E11.9 - Type 2 diabetes mellitus without complications Hemoglobin A1c 11/05/24 E11.9 - Type 2 diabetes mellitus without complications UA CC w/rflx Micro + Cult 11/05/24 R30.0 - Dysuria Vitamin B12 and Folate 11/05/24 E53.8 - Deficiency of other specified B group vitamins Complete Blood Count Auto Diff 11/05/24 D64.9 - Anemia, unspecified Comprehensive [place]. Panel Fast 11/05/24 E78.00 - Pure hypercholesterolemia, unspecified Lipid Panel 11/05/24 E78.00 - Pure hypercholesterolemia, unspecified TSH reflex Free T4 11/05/24 E78.00 - Pure hypercholesterolemia, unspecified Vitamin D 25-OH Total 11/05/24 E55.9 - Vitamin D deficiency, unspecified [facility]errals [facility] Referral E11.43 - Type 2 diabetes mellitus with diabetic autonomic (poly)neuropathy, R26.81 - Unsteadiness on feet, R26.89 - Other abnormalities of gait and mobility
[2024-11-05 16:00] VITALS: BP 124/68; PULSE 81; O2SAT 92; BMI 38.9
--- OUTSIDE RECORDS SUMMARY | 2024-11-05 16:51 | XMS_ITS | Patient Health Record ---
Author Organization [facility] Address [address] [place] [address] Care Team Providers Care Physician Office Clin Asst Name Role Phone CaliSharon byrant Primary Care Provider Unavail able Raj Sebastian Unavailable [phone] Allergies Allergen (clinical drug ingredient) Drug/Non Drug Allergy documented on EMR Reaction Allergy Type Onset Date Status bupropion Bupropion manic Drug Allergy Active olanzapine Olanzapine weight gain Drug Allergy Act diego Substance with sulfonamide structure and antibacterial mechanism of action (substance) Sulfa Antibiotics (bactrim) Drug Allergy Active olanzapine / samidorphan Lybalvi high BS Drug Allergy Active Results Component Value Reference Range Notes HEMOGLOBIN A1C (GLYCOHEMOGLO BIN) Reviewed date:06/29/2024 04:01:05 PM Interpretation: Performing Lab: Notes/Report: TOTAL HEMOGLOBIN (HGBA1C) 8.9 HEMOGLOBIN A1C (GLYCOHEMOGLO BIN) Reviewed date:09/23/2024 12:54:28 PM Interpretation: Performing Lab: Notes/Report: HEMOGLOBIN A1C % (HH) 7.9 Reason For Referral No Information Medications Medication SIG (Take, Route, Frequency, Duration) Notes Start Date End Date Status Depakote 500 MG 1 tablet Orally Twice a day Active Fluticasone Propionate Active Cephalexin 500 MG TAKE 1 CAPSULE BY MOUTH EVERY 12 HOURS FOR 10 DAYS Oral for 10 Days Active Atorvastatin Calcium 20 MG 1 tablet Orally Once a day for 30 day(s) Active Trelegy Ellipta 100-62.5-25 MCG/INH 1 puff Inhalation Once a day Active clonazePAM 1 MG 1 tablet Orally Once a day Active Xarelto 20 MG 1 tablet with food Orally Once a day for 30 day(s) Active Extra Depth Orthopedic Shoes (1 Pair) with Customized Heat Molded Multidensity Innersoles (3 Pair) as directed Dx: NIDDM/Polyneuropathy (E11.42), Hammertoe Foot Deformity (M20.41,M20.42), Preulcerative Skin Lesion(s) (L85.1 Active Omeprazole 20 MG 1 capsule 30 minutes before morning meal Orally Once a day for 30 day(s) Active albuterol inhaler Active Potassium Gluconate 595 MG 1 capsule with food Orally Once a day for 30 day(s) Active Metoprolol Succinate 50 MG 1 capsule Orally Once a day Active Lantus Active Triple Complex Formula 3 Kit Magnesium, 300mg Not-Taking metFORMIN HCl 500 MG 1 tablet with a vianey l Orally Once a day for 30 day(s) Active Vraylar 4.5 MG as directed Orally twice a day Not-Taking glipiZIDE ER 10 MG 1 tablet with breakfast Orally Once a day for 30 day(s) Active Gabapentin 600 MG 1 capsule Orally three times a day Not-Taking HumaLOG Active Super B Complex/Vitamin C - as directed Orally No t-Taking Amiodarone HCl Not-T aking OLANZapine 7.5 MG 1 tablet Orally Once a day for 30 day(s) Not-Taking Cymbalta 60 MG 1 capsule Orally Once a day for 30 day(s) Not-Taking buPROPion HCl Not-Ta yasmin Iron Not-Taking KlonoPIN Not-Taking Ammonium Lactate 12 % 1 application to affected area Externally to feet Twice a day for 30 days Not-Taking Lyrica Active Benztropine Mesylate 0.5 MG 1 tablet at bedtime Orally Once a day twice a day Active Caplyta Active Lexapro Active Immunizations Vaccine Route Administration Date Status Comme nts COVID-19 Moderna Vaccine Unknown 05/04/2022 Administered 1st 11/23/20,12/23/20 05/25/21,11/23/21 Influenza Unknown 05/04/2022 Administered Social History Tobacco Use: Social History Observation Description Date Details (start date - stop date) Never Smoker NA - NA Alcohol Screen Question Answer Notes Did you have a drink containing alcohol in the p ast year? No Points 0 Interpretation Negative Tobacco use other than smoking: Question Answer Notes Are you an other tobacco user? No Tobacco Control (Standard) Question Answer Notes Tobacco use: Nonsmoker Section Notes: History of Vaping - THC, 4 y ears History of Vaping - THC, 4 y ears History of Vaping - THC, 4 y ears History of Vaping - THC, 4 y ears History of Vaping - THC, 4 y ears History of Vaping - THC, 4 y ears History of Vaping - THC, 4 y ears History of Vaping - THC, 4 y ears History of Vaping - THC, 4 y ears History of Vaping - THC, 4 y ears History of Vaping - THC, 4 y ears History of Vaping - THC, 4 y ears History of Vaping - THC, 4 y ears History of Vaping - THC, 4 y ears Problems Problem Type SNOMED Code ICD Code Onset Dates Problem Status W/U Status Risk Notes Problem Acquired hammer toe of right foot (785197001223991 5) Other hammer toe(s) (acquired), right foot (M20.41) Active confirmed Problem Acquired hammer toe of left foot (811779403624628 3) Other hammer toe(s) (acquired), left foot (M20.42) Active confirmed Problem Polyneuropathy due to type 2 diabetes mellitus (608877496) Type 2 diabetes mellitus with diabetic polyneuropathy (E11.42) Active confirmed Problem 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) Active confirmed Response to treatment Worse Vital Signs Blood pressure diastolic 72 mm Hg 09/23/2024 Height 0ul45aa in 09/23/2024 Blood pressure systolic 119 mm Hg 09/23/2024 Weight 265 lbs 09/23/2024 BMI 38.02 kg/m2 09/23/2024 Procedures Procedure Date Ordered Date Performed Result Body Sit e 09910-HZNDCFJ NAIL, 6 OR MORE 06/29/2024 N/A 79569- Debride <25 sq cm 06/29/2024 N/A 73131-OPUW SKIN LESIONS, OVER 4 06/29/2024 N/A 52289-RIBUDCZ NAIL, 6 OR MORE 09/23/2024 N/A 93822-VHCBSAG SKIN/TISSUE 09/23/2024 N/A 99863-BFPJ SKIN LESIONS, OVER 4 09/23/2024 N/A Encounters Encounter Location Date Provider Diagnosis [facility] [address] [address] 06/29/2024 Raj Sebastian Type 2 diabetes mellitus with diabetic polyneuropathy E11.42 ; Tinea unguium B35.1 ; Other hammer toe(s) (acquired), right foot M20.41 ; Other hammer toe(s) (acquired), left foot M20.42 and Neuropathic ulcer of right foot, limited to breakdown of skin L97.511 [facility] [address] 09/23/2024 Raj Sebastian Type 2 diabetes mellitus with diabetic polyneuropathy E11.42 ; Tinea unguium B35.1 ; Other hammer toe(s) (acquired), right foot M20.41 ; Other hammer toe(s) (acquired), left foot M20.42 and Neuropathic ulcer of right foot with fat layer exposed L97.[address] [address] 01/28/[address] [address] 02/18/[address] [address] 09/23/2024 Raj Sebastian Assessments Encounter Date Diagnosis (ICD Code) Assessment Notes Treatment Notes Treatment Clinical Notes Section Notes 06/29/2024 Tinea unguium (ICD-10 - B35.1) 06/29/2024 Type 2 diabetes mellitus with diabetic polyneuropathy (ICD-10 - E11.42) 09/23/2024 Tinea unguium (ICD-10 - B35.1) 09/23/2024 Type 2 diabetes mellitus with diabetic polyneuropathy (ICD-10 - E11.42) 06/29/2024 Other hammer toe(s) (acquired), right foot (ICD-10 - M20.41) Patient Educated with: DIABETIC FOOT CARE INSTRUCTIONS. pdf (DIABETIC FOOT CARE INSTRUCTIONS. pdf) 09/23/2024 Other hammer toe(s) (acquired), right foot (ICD-10 - M20.41) Patient Educated with: DIABETIC FOOT CARE INSTRUCTIONS. pdf (DIABETIC FOOT CARE INSTRUCTIONS. pdf) 06/29/2024 Other hammer toe(s) (acquired), left foot (ICD-10 - M20.42) 09/23/2024 Other hammer toe(s) (acquired), left foot (ICD-10 - M20.42) 09/23/2024 Neuropathic ulcer of right foot with fat layer exposed (ICD-10 - L97.512) Response to treatment Worse Patient Educated with: WOUND CARE INSTRUCTIONS. pdf (WOUND CARE INSTRUCTIONS. pdf) 06/29/2024 Neuropathic ulcer of right foot, limited to breakdown of skin (ICD-10 - L97.511) Response to treatment Improving Patient Educated with: WOUND CARE INSTRUCTIONS. pdf (WOUND CARE INSTRUCTIONS. pdf) 09/23/2024 Other Plan Of Treatment Pending Test Test Name Order Date 86585-NIHTQCM NAIL, 6 OR MORE 09/18/2021 50840-NMVMIJU NAIL, 6 OR MORE 12/18/2021 84323-XGDHFUE NAIL, 6 OR MORE 03/12/2022 97527-FVRBNNY NAIL, 6 OR MORE 06/19/2022 58815-NZQPVYI NAIL, 6 OR MORE 08/23/2022 17703-IMKVFTJ NAIL, 6 OR MORE 10/29/2022 55058-YVCHGOL NAIL, 6 OR MORE 01/21/2023 78039-VMEYMKV NAIL, 6 OR MORE 04/15/2023 45092-RZAXDPO NAIL, 6 OR MORE 06/17/2023 51524-AHCYNYQ NAIL, 6 OR MORE 08/26/2023 02632-GDWWKEP NAIL, 6 OR MORE 06/29/2024 57802-NGLBNVF NAIL, 6 OR MORE 09/23/2024 91459-Rwmljbfh Plate 08/26/2023 96579- Debride <25 sq cm 06/29/2024 46714-DTCYDKH SKIN/TISSUE 09/23/2024 93531-JGOJZHD SKIN/TISSUE 10/29/2021 78811-TCGY SKIN LESIONS, OVER 4 08/26/19 24 01668-PSWN SKIN LESIONS, OVER 4 09/23/19 00054-ZNOZ SKIN LESIONS, OVER 4 06/29/20 24 47115-WQPT SKIN LESIONS, OVER 4 06/17/20 24218-BSNH SKIN LESIONS, OVER 4 04/15/20 46770-MMSC SKIN LESIONS, OVER 4 06/20/20 23 84675-FJAZ SKIN LESIONS, OVER 4 10/30/19 23 82069-MUEO SKIN LESIONS, OVER 4 08/23/19 23 29537-UWZW SKIN LESIONS, OVER 4 06/19/20 22 51506-TYKO SKIN LESIONS, OVER 4 12/19/19 22 31675-ESXB SKIN LESIONS, OVER 4 03/12/20 22 08531-JWPM SKIN LESIONS, OVER 4 09/18/19 Next Appt Details Provider Name:Raj Sebastian , 12/20/2024 01:45:00 PM, [address] [facility], [address], [place], [address], Insurance Providers Payer Name Payer Address Payer Phone Subscriber Number Group Number Insured Name Patient Relationship to Insured Coverage Start Date Coverage End Date [facility] [address] [place] [address] [phone] [id number] Columba Queen Spouse - patient is the spouse of the insured Medical (General) History Medical History History ICD Code Angina Anxiety Asthma Broken bones CAD (Cholesterol) Cancer Cataracts Depression Diabetes type 2 Diverticulosis Epilepsy / Seizures Measles Mumps Chicken pox Heart Disease High Blood Pressure Lung Disease Psychiatric Reflux ( Gerd) Ulcer (skin) Warts Pacemaker Surgical History Surgery Date(Month/Year) cardiac pacemeker 08/2021 cardiac ablasion 08/2021 Hospitalization History Reason Date(Month/Year) Jacinto Mu[facility] - Afib due to meds overnight 2022 2x [facility] -[place]/[facility] ld -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
--- OUTSIDE RECORDS SUMMARY | 2024-11-05 16:51 | XMS_ITS | Encounter Summary ---
Author Organization [employer] Address [address] [place] [address] 7[address] [place] [address] Care Team Providers Care Kerrick Kleaner Operator Name Role Phone Sharon Quijano [facility] Primary Care Provider [phone] Irvin Zapata MD Unavailable [phone] Raj Sebastian Unavailable Mallorie Rosado Unavailable Jaqui Bowman MD Unavailable [phone] Jcarlos Archer MD Unavailable Salinas Albert MD Unavailable Rain Del Castillo MD Unavailable [phone] Encounter Details Date Type Department Care Team (Late st Contact Info) Description 10/09/[address] [address] Sharon Quijano [facility] [address] [place] [address] Social History Tobacco Use Types Packs/Day Years Used Date Smoking Tobacco: Former Cigarettes 0.5 40 0 04/04/1981 - 12/03/2017 Pipe Cigars Smokeless Tobacco: Former Snuff Quit: 08/04/2014 Alcohol Use Standard Drinks/Week Comments Not Currently 0 (1 standard drink = 0.6 oz pure alcohol) Alcohol Use Disorder Last Drink 08/07/17 Sex and Gender Information Value Date Recorded Sex Assigned at Male 09/24/2022 11:52 AM EST Legal Sex Male 6:23 PM EDT Gender Identity Male 10/30/2022 8:12 PM EDT Sexual Orientation Straight 05/31/2022 6: 23 PM EDT COVID-19 Exposure Response Date Recorded In the last 10 days, have yo u been in contact with someone who was confirmed or suspected to have Coronavirus/COVID-19? No / Unsure 10/09/2022 10:46 AM EST documented as of this encounter Plan of Treatment Not on file documented as of this encounter Visit Diagnoses Not on filedocumented in this encounter Care Teams Kerrick Kleaner Operator Relationship Specialty Start Date End Date CaliomarearnestSharon perezSOFÍA [address] [place] [address] PCP - General Family Medicine 10/09/22 Irvin Zapata MD [address] [place] [address] Gastroenterology 04/28/24 Raj Sebastian [address] [place] [address] 107 Podiatry 04/28/24 Mallorie Rosado [address] [place] [address] Cardiology 04/28/24 Jaqui Bowman MD [address] [address] Endocrinology 04/28/24 Jcarlos Archer MD [address] [place] [address] Pulmonary Disease 04/28/24 Salinas Albert MD [address] [place] [address] FAX ([address] [place] [address] Urology 04/28/24 Rain Del Castillo MD [address] [place] [address], [address] [place] [address] Neurology 04/28/24 Jeremy Oconnor Psychiatrist 04/28/24 Vasu Angulo Psychologist 04/28/24 documented as of this encounter
--- OUTSIDE RECORDS SUMMARY | 2024-11-05 16:51 | XMS_ITS | Encounter Summary ---
Author Organization [employer] Address [address] Floor [place] [id number] Care Team Providers Care Young Adult Librarian Name Role Phone Caliruthyana Sharon BRIQUETTE MACHINE OPERATOR Primary Care Provider [phone] Irvin Zapata MD Unavailable [phone] Raj Sebastian Unavailable Mallorie Rosado Unavailable Jaqui Bowman MD Unavailable [phone] Jcarlos Archer MD Unavailable Salinas Albert MD Unavailable [phone] Rain Del Castillo MD Unavailable [phone] Encounter Details Date Type Department Care Team (Late st Contact Info) Description 12/08/[address] [place] [address] CaliomarmikeSharon FNP [address] [place] [address] Social History Tobacco Use Types Packs/Day Years Used Date Smoking Tobacco: Former Cigarettes 0.5 40 0 04/04/1981 - 12/03/2017 Pipe Cigars Passive Smoke Exposure: Past Smokeless Tobacco: Former Snuff Quit: 08/04/2014 Alcohol Use Standard Drinks/Week Comments Not Currently 0 (1 standard drink = 0.6 oz pure alcohol) Alcohol Use Disorder Last Drink 08/07/17 Alcohol Answer Date Recorded How often do you have a drink containing alcohol ? 0 09/01/2023 How many drinks containing a lcohol do you have on a typical day when you are drinking? 0 09/01/2023 How often do you have six or more drinks on one occasion? 0 09/01/2023 Housing Stability Answer Date Recorded What is your housing situation today? I have na bowen 06/16/[address] you li ve. Do you have problems with any of the following? None of the above 06/16/2023 Food Insecurity Answer Date Recorded Within the past 12 months, y ou worried that your food would run out before you got money to buy more: Never True 06/16/2023 Within the past 12 months,th e food you bought just didn't last and you didn't have enough money to get more: Never True Transportation Answer Date Recorded In the past 12 months, has l ack of transportation kept you from medical appts, meetings, work or from getting things needed for daily living? No 06/16/2023 Intimate Partner Violence Answer Date R ecorded Within the last year, have y ou been afraid of your partner or ex-partner? 2 09/01/2023 Within the last year, have y ou been humiliated or emotionally abused in other ways by your partner or ex-partner? 2 Within the last year, have y ou been kicked, hit, slapped, or otherwise physically hurt by your partner or ex-partner? 2 09/01/2023 Within the last year, have y ou been raped or forced to have any kind of sexual activity by your partner or ex-partner? 2 09/01/2023 Utilities Answer Date Recorded In the past 12 months, has t he electric, gas, oil or water company threatened to shut off services in your home? No 06/16/2023 Depression Answer Date Recorded Patient Health Questionnaire-2 Score 1 06/16/2023 Sex and Gender Information Value Date Recorded Sex Assigned at Male 09/24/2022 11:52 AM EST Legal Sex Male 6:23 PM EDT Gender Identity Male 10/30/2022 8:12 PM EDT Sexual Orientation Straight 05/31/2022 6: 23 PM EDT documented as of this encounter Miscellaneous Notes * Telephone Encounter - Kendy Helm - 12/08/2023 12:29 PM EDT Please fax referral #[id number] documented in this encounter Plan of Treatment Not on file documented as of this encounter Visit Diagnoses Not on filedocumented in this encounter Care Teams Young Adult Librarian Relationship Specialty Start Date End Date Sharon Quijano FNP [address] [place] [address] PCP - General Family Medicine 10/09/22 Irvin Zapata MD [address] [place] [address] Gastroenterology 04/28/24 Raj Sebastian [address] [place] [address] 107 Podiatry 04/28/24 Mallorie Rosado [address] [place] [address] Cardiology 04/28/24 Jaqui Bowman MD [address] [place] [address] Endocrinology 04/28/24 Jcarlos Archer MD [address] [place] [address] Pulmonary Disease 04/28/24 Salinas Albert MD [address] [place] [address] FAX ([address] [place] [address] Urology 04/28/24 Rain Del Castillo MD [address] [place] [address], [address] [place] [address] Neurology 04/28/24 Jeremy Oconnor Psychiatrist 04/28/24 Vasu Angulo Psychologist 04/28/24 documented as of this encounter
--- OUTSIDE RECORDS SUMMARY | 2024-11-05 16:51 | XMS_ITS ---
Author Organization [facility] Address [address] [place] [address] Care Team Providers Care Paper Control Clerk Name Role Phone Sharon Quijano Primary Care Provider Unavail Raj Kirkland Unavailable [phone] REASON FOR VISIT [facility] Woundcare 10/04/24@8am Encounters Encounter Location Date Provider Diagnosis [facility] [address] [place] [address] 09/23/2024 Raj Sebastian Plan Of Treatment Next Appt Details Provider Name:Raj Sebastian , 12/20/2024 01:45:00 PM, [address] [facility], [address], [place], [address], Progress Notes * Pb KEITHDOB: [birth year] (58 yo M)Acc No.[id number]:09/23/2024 Patient:?Pb KEITH :1965???Age:58 Y???Sex:Male Address:[address], [place], [address] * true * Date:? Generated for Printi ng/Faxing/eTransmitting on:?11/05/2024 04:50 PM EDT
--- OUTSIDE RECORDS SUMMARY | 2024-11-05 16:51 | XMS_ITS | Encounter Summary ---
Author Organization [employer] Address [address] [facility] [address] [facility] [address] [place] [address] Care Team Providers Care Machine Stacker Name Role Phone Sharon Quijano SOFÍA Primary Care Provider [phone] Irvin Zapata MD Unavailable [phone] Raj Sebastian Unavailable Mallorie Rosado Unavailable [phone] Jaqui Bowman MD Unavailable [phone] Jcarlos Archer MD Unavailable [phone] Salinas Albert MD Unavailable [phone] Rain Del Castillo MD Unavailable [phone] Encounter Details Date Type Department Care Team (Late st Contact Info) Description 11/18/2023 Orders Only [facility] [address] [place] [address] Provider, Not In System Social History Tobacco Use Types Packs/Day Years [...] PM EDT documented as of this encounter Plan of Treatment Not on file documented as of this encounter Procedures Procedure Name Priority Date/Time Associated Diagnosis Comments SURGICAL PATHOLOGY Routine 11/14/2023 10:14 AM EDT documented in this encounter Results * Surgical Pathology (11/14/2023 10:14 AM EDT) us Not In System Provider LAB PATHOLOGY ORDERABLES Final Result documented in this encounter Visit Diagnoses Not on filedocumented in this encounter Care Teams Machine Stacker Relationship Specialty Start Date End Date Sharon Quijano SOFÍA [address] [place] [address] PCP - General Family Medicine 10/09/22 Irvin Zapata MD [address] [place] [address] Gastroenterology 04/28/24 Raj Sebastian [address] [place] [address] 107 Podiatry 04/28/24 Mallorie Rosado [address] [place] [address] Cardiology 04/28/24 Jaqui Bowman MD [address] [address] Endocrinology 04/28/24 Jcarlos Archer MD [address] [place] [address] Pulmonary Disease 04/28/24 Salinas Albert MD [address] [place] [address] FAX (413[place], [place] [address] Urology 04/28/24 Rain Del Castillo MD [address] [place] [address] Neurology 04/28/24 Jeremy Oconnor Psychiatrist 04/28/24 Vasu Angulo Psychologist 04/28/24 documented as of this encounter
--- OUTSIDE RECORDS SUMMARY | 2024-11-05 16:51 | XMS_ITS ---
[facility] Address [address] [place] [address] Care Team Providers Care Ticket Sales Supervisor Name Role Phone Macie Sharon Primary Care Provider Unavail able Raj Sebastian Unavailable [phone] Allergies Allergen (clinical drug ingredient) Drug/Non Drug Allergy documented on EMR Reaction Allergy Type Onset Date Status bupropion Bupropion manic Drug Allergy Active olanzapine Olanzapine weight gain Drug Allergy Act diego Substance with sulfonamide structure and antibacterial mechanism of action (substance) Sulfa Antibiotics (bactrim) Drug Allergy Active olanzapine / samidorphan Lybalvi high BS Drug Allergy Active REASON FOR VISIT At Risk Footcare, Toe Irritation, Open sore Medications Medication SIG (Take, Route, Frequency, Duration) Notes Start Date End Date Status Cephalexin 500 MG TAKE 1 CAPSULE BY MOUTH EVERY 12 HOURS FOR 10 DAYS Oral for 10 Days Active Triple Complex Formula 3 Kit Magnesium, 300mg Not-Taking Vraylar 4.5 MG as directed Orally twice a day Not-Taking Gabapentin 600 MG 1 capsule Orally three times a day Not-Taking Super B Complex/Vitamin C - as directed Orally No t-Taking Trelegy Ellipta 100-62.5-25 MCG/INH 1 puff Inhalation Once a day Active Xarelto 20 MG 1 tablet with food Orally Once a day for 30 day(s) Active Omeprazole 20 MG 1 capsule 30 minutes before morning meal Orally Once a day for 30 day(s) Active Potassium Gluconate 595 MG 1 capsule with food Orally Once a day for 30 day(s) Active Metoprolol Succinate 50 MG 1 capsule Orally Once a day Active Fluticasone Propionate Active Lantus Active metFORMIN HCl 500 MG 1 tablet with a vianey l Orally Once a day for 30 day(s) Active glipiZIDE ER 10 MG 1 tablet with breakfast Orally Once a day for 30 day(s) Active HumaLOG Active Depakote 500 MG 1 tablet Orally Twice a day Active Atorvastatin Calcium 20 MG 1 tablet Orally Once a day for 30 day(s) Active clonazePAM 1 MG 1 tablet Orally Once a day Active albuterol inhaler Active Benztropine Mesylate 0.5 MG 1 tablet at bedtime Orally Once a day twice a day Active OLANZapine 7.5 MG 1 tablet Orally Once a day for 30 day(s) Not-Taking Extra Depth Orthopedic Shoes (1 Pair) with Customized Heat Molded Multidensity Innersoles (3 Pair) as directed Dx: NIDDM/Polyneuropathy (E11.42), Hammertoe Foot Deformity (M20.41,M20.42), Preulcerative Skin Lesion(s) (L85.1 Active Lyrica Active Caplyta Active Lexapro Active Amiodarone HCl Not-T aking Cymbalta 60 MG 1 capsule Orally Once a day for 30 day(s) Not-Taking buPROPion HCl Not-Ta yasmin Iron Not-Taking KlonoPIN Not-Taking Ammonium Lactate 12 % 1 application to affected area Externally to feet Twice a day for 30 days Not-Taking Social History Tobacco Use: Social History Observation Description Date Details (start date - stop date) Never Smoker NA - NA Tobacco use other than smoking: Question Answer Notes Are you an other tobacco user? No Tobacco Control (Standard) Question Answer Notes Tobacco use: Nonsmoker Section Notes: History of Vaping - THC, 4 y ears Problems Problem Type SNOMED Code ICD Code Onset Dates Problem Status W/U Status Risk Notes Problem 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) Active confirmed Response to treatment Worse Vital Signs Height 8zf41nt in 09/23/2024 Weight 265 lbs 09/23/2024 BMI 38.02 kg/m2 09/23/2024 Blood pressure systolic 119 mm Hg 09/23/19 25 Blood pressure diastolic 72 mm Hg 025 Procedures Procedure Date Ordered Date Performed Result Body Sit e 14000-WFZHYTQ NAIL, 6 OR MORE 09/23/2024 N/A 58351-INJCIUU SKIN/TISSUE 09/23/2024 N/A 37349-TBYM SKIN LESIONS, OVER 4 09/23/2024 N/A Encounters Encounter Location Date Provider Diagnosis [facility] [address] [address] 09/23/2024 Raj Sebastian Type 2 diabetes mellitus with diabetic polyneuropathy E11.42 ; Tinea unguium B35.1 ; Other hammer toe(s) (acquired), right foot M20.41 ; Other hammer toe(s) (acquired), left foot M20.42 and Neuropathic ulcer of right foot with fat layer exposed L97.512 Assessments Encounter Date Diagnosis (ICD Code) Assessment Notes Treatment Notes Treatment Clinical Notes Section Notes 09/23/2024 Type 2 diabetes mellitus with diabetic polyneuropathy (ICD-10 - E11.42) 09/23/2024 Tinea unguium (ICD-10 - B35.1) 09/23/2024 Other hammer toe(s) (acquired), right foot (ICD-10 - M20.41) Patient Educated with: DIABETIC FOOT CARE INSTRUCTIONS. pdf (DIABETIC FOOT CARE INSTRUCTIONS. pdf) 09/23/2024 Other hammer toe(s) (acquired), left foot (ICD-10 - M20.42) 09/23/2024 Neuropathic ulcer of right foot with fat layer exposed (ICD-10 - L97.512) Response to treatment Worse Patient Educated with: WOUND CARE INSTRUCTIONS. pdf (WOUND CARE INSTRUCTIONS. pdf) 09/23/2024 Other Plan Of Treatment Medication Medication Name Sig Start Date Stop Date Notes Extra Depth Orthopedic Shoes (1 Pair) with Customized Heat Molded Multidensity Innersoles (3 Pair) as directed Dx: NIDDM/Polyneuropathy (E11.42), Hammertoe Foot Deformity (M20.41,M20.42), Preulcerative Skin Lesion(s) (L85.1 Treatment Notes Assessment Notes Other hammer toe(s) (acquired), right fo ot Patient Educated with: DIABETIC FOOT CARE INSTRUCTIONS.pdf (DIABETIC FOOT CARE INSTRUCTIONS.pdf) Neuropathic ulcer of right f oot with fat layer exposed Patient Educated with: WOUND CARE INSTRUCTIONS.pdf (WOUND CARE INSTRUCTIONS.pdf) Pending Test Test Name Order Date [id number]-JSEGDYT NAIL, 6 OR MORE 09/23/2024 48581-MAUJEFR SKIN/TISSUE 09/23/2024 78763-[id number] SKIN LESIONS, OVER 4 09/23/19 25 Next Appt Details Follow Up: 2 Months, Reason: Provider Name:Raj Sebastian , 12/20/2024 01:45:00 PM, [address] , [address], [place], [address], Procedure Notes * Category Sub-Category Detail Notes Debride Nail 6-10 Nail debridement Due to the cl inical pathology outlined in the exam findings, performance of this nail treatment is medically necessary as its management by an unskilled/untrained nonprofessional would put this patients foot and overall health at risk. Therefore, debridement to affected nail(s), as described in exam ( TA, T1, T2, T3, T4, T5, T6, T7, T8, T9 ), was performed exclusively by the physician of record to reduce/remove overall nail length, girth, thickness, subungual debris, and necrotic tissue, by manual and/or electrical means through the use of a nail nipper and/or dremel-type machine grinder, to a more viable healthy nail plate or bed tissue 6-10 nails in total. Silver nitrate was used for any petechial bleeding as necessary. Definitive antifungal treatment options, both pharmaceutical and surgical, have been reviewed and discussed with the patient. The patient solely prefers the use of intermittent/as needed professional debridement services for their nail condition and understands the need for additional periodic treatments to maintain effectiveness in symptomatic relief - 42664 Debride skin and subQ Open wound NEUROPATHY : Physician of record performed open wound selective debridement of devitalized necrotic/nonviable soft tissue, fibrin, exudate, epidermis, dermis, thru skin and subcutaneous fat tissue, first 20 sq cm or less, using sharp dissection with sterile 15 blade, and/or tissue nippers. ANESTHESIA was not required due to presence of NEUROPATHY. Hemostasis was controlled through direct pressure. Sterile antibiotic dressing applied. Post debridement measurements: 16 mm x 16mm x 3mm. Character of the wound post debridement is stable (40497) Keratoma Treatment Parring or Cutting o f Benign Hyperkeratotic Lesion(s) (-57) More than 4 Lesions - Due to the at risk nature of the patients medical condition as documented in the exam findings, performance of this keratoderma treatment is medically necessary as its management by an unskilled/untrained nonprofessional would put this patients foot and overall health at risk. Therefore, the benign hyperkeratotic lesions, ( 9) in total, locations as stated and described in the exam ( Medial, IPJ, TA, Medial, IPJ, T5, SUB MTH (s), 1, Left , SUB MTH (s), 5, Left , SUB MTH (s), 2, Right , SUB MTH (s), 3, Right , SUB MTH (s), 4, Right , Plantar, Heel(s), B/L ), were pared, and/or cut utilizing a sterile 15 blade, tissue nippers, and/or power dremel instrumentation by the physician of record - 36788 Progress Notes * Pb KEITHDOB: [birth year] (58 yo M)Acc No.[id number]:09/23/2024 Progress Note Patient:?Pb KEITH Provider:?Raj Sebastian DPM :1965???Age:58 Y???Sex:Male Armand e:09/23/2024 Address:[address] [place] [address], pt [address] [place] [address] Pcp:Sharon Quijano Subjective: * Chief Complaints: * ???At Risk FootcareToe Irrit ationOpen sore * HPI: ???At Risk footcare:?Pt States Last PCP Visit:?Date?08/13/2024 ?Misc?States Living at [facility] in [place].?Skin problems:?Treatments:?[facility] [place], total contact cast, home health nursing 3 times per week (M,W,F) - states last visit was a week ago, would like to change wound care centers. Now prefers [facility].?Toe pain:?Location:?B/L feet.?Duration:?several years.?Course:?worse.?Aggravated by:?shoes, any pressure.?Treatments:?change in shoes.? * ROS:?General/Constitutional:?Nausea?denies.?Vomiting?denies.?Hunger Thirst?denies.?Loss appetite?admits.?Chills?denies.?Fatigue?denies.?Fever?denies.?Night Sweats?denies.?Unexplained weight loss?denies.?Unexplained weight gain?admits.?HEENTM:?Dentures?denies.?Dizziness?denies.?Glasses/contacts?admits.?Retinopathy?den ies.?Blurred/double vision?denies.?TMJ?denies.?Discharge/drainage?denies.?Implants?denies.?Sore throat?denies.?Dental implants?denies.?Hard of hearing ?denies.?Difficulty chewing/swallowing/speaking?denies.?Nose bleeds?denies.?Sore mouth?admits.?Respiratory:?On O xygen?denies.?Pneumonia/pleurisy?denies.?Bronchitis?admits.?Emphysema?denies.?Co ughing?admits.?Cough blood?denies.?Shortness of breath?admits.?Wheezing?admits.?Cardiovascular:?Pacemaker?denies.?MVP?denies.?WPW?denies.?CHF?denies.?Heart attack?denies.?Septal defect?denies.?Rapid beat?admits.?Chest pain ?admits.?Atrial Fib.?admits.?Murmur/Palpitations?admits.?Gastrointestinal:?Hemorrhoids?denies.?Stomach/Abdominal pain?denies.?Dark blood stool?denies.?Irritable bowel ?denies.?Constipation?denies.?Diarrhea?denies.?Hematology:?Swelling?admits.?Clots?denies.?Varicose Veins?denies.?Bruising?denies.?Bleeding problem?denies.?Genitourinary:?Blood urine?denies.?Frequent/Painfu/urination/bladder control?admits.?Kidney stones?denies.?Infection (UTI)?denies.?Nephropathy?denies.?sex trans dis (STD)?denies.?Prostate?denies.?Musculoskeletal:?Hammertoes?admits.?Bunions?denies.?Back Pain?denies.?Muscle Cramps/ Resting?denies.?Muscle cramps / walking?denies.?Generalized aches and pains?denies.?Weakness?denies.?Integ.:?Blair?denies.?Scars?denies.?Corns/calluses?admits.?Ingrown nails?admits.?Painful nails?denies.?Open Sores?denies.?Rashes?denies.?Neurologic:?Difficulty sleeping?denies.?Brain disorder?denies.?Numbness?admits.?Balance t rouble?admits.?Confusion?denies.?Fainting/blackouts?denies.?Tingling?admits.?Kobi mors?denies.? * Medical History:? 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 Maternal Grand Father: diagnosed with Unspecified essential hypertension, Family history of arthritis.?Paternal uncle: diagnosed with Diabetic - NIDDM.?Maternal uncle: diagnosed with Diabetic - NIDDM.? * Social History:?Tobacco Use:?Tobacco use other than smoking?Are you an other tobacco user??No ?Tobacco Control (Standard)?Tobacco use:?Nonsmoker ???Miscellaneous:?Caffeine: yes, frequency: more than 4 cups per day. ?Children: no, none. ?Exercise: yes, exercise, walking , 3 times per week 15 min. ?Marital status: . ?Occupation: Retired-, [employer]. ???History of Vaping - THC, 4 years. * Medications:?TakingCaplyta L exapro Lyrica Benztropine Mesylate 0.5 MG Tablet 1 tablet at bedtime Orally Once a day , Notes to Pharmacist: twice a dayalbuterol , Notes to Pharmacist: inhalerAtorvastatin Calcium 20 MG Tablet 1 tablet Orally Once a day clonazePAM 1 MG Tablet 1 tablet Orally Once a day Depakote 500 MG Tablet Delayed Release 1 tablet Orally Twice a day Fluticasone Propionate glipiZIDE ER 10 MG Tablet Extended Release 24 Hour 1 tablet with breakfast Orally Once a day HumaLOG Lantus metFORMIN HCl 500 MG Tablet 1 tablet with a meal Orally Once a day Metoprolol Succinate 50 MG Capsule ER 24 Hour Sprinkle 1 capsule Orally Once a day Omeprazole 20 MG Capsule Delayed Release 1 capsule 30 minutes before morning meal Orally Once a day Potassium Gluconate 595 MG Capsule 1 capsule with food Orally Once a day Trelegy Ellipta 100-62.5-25 MCG/INH Aerosol Powder Breath Activated 1 puff Inhalation Once a day Xarelto 20 MG Tablet 1 tablet with food Orally Once a day Extra Depth Orthopedic Shoes (1 Pair) with Customized Heat Molded Multidensity Innersoles (3 Pair) as directed Dx: NIDDM/Polyneuropathy (E11.42), Hammertoe Foot Deformity (M20.41,M20.42), Preulcerative Skin Lesion(s) (L85.1 Cephalexin 500 MG Capsule TAKE 1 CAPSULE BY MOUTH EVERY 12 HOURS FOR 10 DAYS Oral Taking Caplyta Taking Lexapro Taking Lyrica Taking Benztropine Mesylate 0.5 MG Tablet 1 tablet at bedtime Orally Once a day , Notes to Pharmacist: twice a dayTaking albuterol , Notes to Pharmacist: inhalerTaking Atorvastatin Calcium 20 MG Tablet 1 tablet Orally Once a day Taking clonazePAM 1 MG Tablet 1 tablet Orally Once a day Taking Depakote 500 MG Tablet Delayed Release 1 tablet Orally Twice a day Taking Fluticasone Propionate Taking glipiZIDE ER 10 MG Tablet Extended Release 24 Hour 1 tablet with breakfast Orally Once a day Taking HumaLOG Taking Lantus Taking metFORMIN HCl 500 MG Tablet 1 tablet with a meal Orally Once a day Taking Metoprolol Succinate 50 MG Capsule ER 24 Hour Sprinkle 1 capsule Orally Once a day Taking Omeprazole 20 MG Capsule Delayed Release 1 capsule 30 minutes before morning meal Orally Once a day Taking Potassium Gluconate 595 MG Capsule 1 capsule with food Orally Once a day Taking Trelegy Ellipta 100-62.5-25 MCG/INH Aerosol Powder Breath Activated 1 puff Inhalation Once a day Taking Xarelto 20 MG Tablet 1 tablet with food Orally Once a day Taking Extra Depth Orthopedic Shoes (1 Pair) with Customized Heat Molded Multidensity Innersoles (3 Pair) as directed Dx: NIDDM/Polyneuropathy (E11.42), Hammertoe Foot Deformity (M20.41,M20.42), Preulcerative Skin Lesion(s) (L85.1 Taking Cephalexin 500 MG Capsule TAKE 1 CAPSULE BY MOUTH EVERY 12 HOURS FOR 10 DAYS Oral Not-Taking/PRNGabapentin 600 MG Tablet 1 capsule Orally three times a day Super B Complex/Vitamin C - Tablet as directed Orally Triple Complex Formula 3 Kit , Notes to Pharmacist: Magnesium, 300mgVraylar 4.5 MG Capsule as directed Orally twice a day Ammonium Lactate 12 % Cream 1 application to affected area Externally to feet Twice a day Iron KlonoPIN Cymbalta 60 MG Capsule Delayed Release Particles 1 capsule Orally Once a day buPROPion HCl Amiodarone HCl OLANZapine 7.5 MG Tablet 1 tablet Orally Once a day Medication List reviewed and reconciled with the patientNot-Taking/PRN Gabapentin 600 MG Tablet 1 capsule Orally three times a day Not-Taking/PRN Super B Complex/Vitamin C - Tablet as directed Orally Not-Taking/PRN Triple Complex Formula 3 Kit , Notes to Pharmacist: Magnesium, 300mgNot-Taking/PRN Vraylar 4.5 MG Capsule as directed Orally twice a day Not-Taking/PRN Ammonium Lactate 12 % Cream 1 application to affected area Externally to feet Twice a day Not-Taking/PRN Iron Not-Taking/PRN KlonoPIN Not-Taking/PRN Cymbalta 60 MG Capsule Delayed Release Particles 1 capsule Orally Once a day Not-Taking/PRN buPROPion HCl Not-Taking/PRN Amiodarone HCl Not-Taking/PRN OLANZapine 7.5 MG Tablet 1 tablet Orally Once a day Medication List reviewed and reconciled with the patient * Allergies:?Sulfa Antibiotics : (bactrim) - AllergyBupropion: manic - AllergyOlanzapine: weight gain - Side EffectsLybalvi: high BS - Allergyyes[Allergies Verified] Objective: * Vitals:?Ht: 4bv54og, Wt:265, BMI:38.02, Shoe size: 14, BP:119/72mm Hg, BS: not taken, Ht-cm: 177.8 cm, Wt-k.2 kg. * ???Past Orders: ???Lab:HEMOGLOBIN A1C (GLYCO HEMOGLOBIN) (Order Date - 08/04/2024) (Collection Date & Time - 08/04/2024 12:53 PM) ? Value Reference Range ?HEMOGLOBIN A1C % (HH) 7.9 * Examination: ???Ophthalmology Referral: ?DIABETES EYE EXAM?Procedure Performed:?Yes ?Date of Exam Performed?07/29/2024 ?Diabetic Retinopathy Screening:?Yes ?Retinal Screening Performed:?Yes ?Findings of Diabetic Eye Exam:?no retinopathy?Neurological: ?SENSORY:? Neurological exam demonstrates, reduced light touch sensation, reduced sharp/dull pin prick discrimination , reduced vibration sensation, B/L, 5.07 monofilament test performed at plantar aspects of 5 varied sites per foot shows sensation, absent, B/L.?Nails: ?NAILS are:?Elongated, overgrown, dystrophic, lytic, greater than 3mm thick, discolored and friable with crumbly malodorous subungual debris, TA, T1, T2, T3, T4, T5, T6, T7, T8, T9.?Dermatologic: ?SKIN FINDINGS:?Skin exam reveals Keratotic lesion(s) located at, Medial, IPJ, TA, Medial, IPJ, T5, SUB MTH (s), 1, Left , SUB MTH (s), 5, Left , SUB MTH (s), 2, Right , SUB MTH (s), 3, Right , SUB MTH (s), 4, Right , Plantar, Heel(s), B/L.?ULCER:?LOCATION, Plantar, Forefoot, RIGHT, NOW, SIZE, 15mm X 15mm X 3mm, BASE, fibro-granular, RIM, hyperkeratotic, UNDERMINING, mild, TRACKING, Sub Q with Fat layer exposed, DRAINAGE, serosanguineous, moderate, NECROTIC TISSUE, loosely-adherent, yellow slough, MALODOR, absent, CALOR, absent, ERYTHEMA, absent.?Orthopedic: ?MUSCLE STRENGTH:?5/5 all groups in a symmetrical fashion, B/L.?FOOT MORPHOLOGY:?Pes Planus structure , (-) Charcot collapse/destruction noted at MTJ.?DIGITAL DEFORMITIES:?Digital contracture, PIPJ, 2-5 B/L, incompl-reducible to push-up test, no over, nor underlapping, with evidence of shoe producing skin irritation.?FOOTWEAR:?worn, non-supportive, shoe gear properties exacerbate patient's foot/toe deformity , shoe gear properties exacerbate patients foot/toe deformity.?Vascular: ?DP PULSES (B):? 0-1/4, B/L.?PT PULSES (B):? 1/4, B/L.?CAPILLARY FILL TIME:? delayed, all digits, B/L.?TROPHIC CONDITION-TEXTURE/ELASTICITY/TURGOR/HAIR GROWTH (B):? decreased,?with sparse to absent hair growth, B/L.?TEMPERTURE GRADIENT (C):? decreased, cool to cool, proximal to distal, B/L.?PIGMENTATION:? rubrous, B/L.?EDEMA (C):? 1/, non-pitting, without aching pain, B/L, Ankle(s), Feet.?General Examination: ?GENERAL APPEARANCE:?Reveals a pleasant, alert, well nourished, well- developed, well hydrated individual, who demonstrates proper attention to hygiene/body habitus, and is in no acute distress, Pt serves as own historian for office visit today.?ORIENTED:?person, place, and time.?FOOT EXAM:?Lower Extremity Neurological Exam performed:?Yes ?Visual exam of foot performed:?Yes ?Date?06/09/2024 ?Footwear Evaluation?Footwear Evaluation performed:?Yes??? Assessment: * Assessment: 1.?Tinea unguium - B35.1???2 .?Type 2 diabetes mellitus with diabetic polyneuropathy - E11.42 (Primary)???3.?Other hammer toe(s) (acquired), right foot - M20.41???Specify :Chronic problem, Worse (4),Rx Management (4)???4.?Other hammer toe(s) (acquired), left foot - M20.42???Specify :Chronic problem, Worse (4),Rx Management (4)???5.?Neuropathic ulcer of right foot with fat layer exposed - L97.512???Notes :Response to treatment Worse??? Plan: * Treatment: 2.?Other hammer toe(s) (acqu ired), right foot? Start Extra Depth Orthopedic Shoes (1 Pair) with Customized Heat Molded Multidensity Innersoles (3 Pair), as directed, Dx: NIDDM/Polyneuropathy (E11.42), Hammertoe Foot Deformity (M20.41,M20.42), Preulcerative Skin Lesion(s) (L85.1, 1, Refills 0.?? Notes: Patient Educated with: DIABETIC FOOT CARE INSTRUCTIONS.pdf (DIABETIC FOOT CARE INSTRUCTIONS.pdf)?? 3.?Neuropathic ulcer of righ t foot with fat layer exposed?Procedure: [id number] SKIN/TISSUE Notes: Patient Educated with: WOUND CARE INSTRUCTIONS.pdf (WOUND CARE INSTRUCTIONS.pdf)?? * Procedures:?Debride Nail 6-10:?Nail debridement?Due to the clinical pathology outlined in the exam findings, performance of this nail treatment is medically necessary as its management by an unskilled/untrained nonprofessional would put this patients foot and overall health at risk. Therefore, debridement to affected nail(s), as described in exam (?TA, T1, T2, T3, T4, T5, T6, T7, T8, T9?), was performed exclusively by the physician of record to reduce/remove overall nail length, girth, thickness, subungual debris, and necrotic tissue, by manual and/or electrical means through the use of a nail nipper and/or dremel-type machine grinder, to a more viable healthy nail plate or bed tissue 6- 10 nails in total. Silver nitrate was used for any petechial bleeding as necessary. Definitive antifungal treatment options, both pharmaceutical and surgical, have been reviewed and discussed with the patient. The patient solely prefers the use of intermittent/as needed professional debridement services for their nail condition and understands the need for additional periodic treatments to maintain effectiveness in symptomatic relief - 75906.?Debride skin and subQ:?Open wound?NEUROPATHY: Physician of record performed open wound selective debridement of devitalized necrotic/nonviable soft tissue, fibrin, exudate, epidermis, dermis, thru skin and subcutaneous fat tissue, first 20 sq cm or less, using sharp dissection with sterile 15 blade, and/or tissue nippers. ANESTHESIA was not required due to presence of NEUROPATHY. Hemostasis was controlled through direct pressure. Sterile antibiotic dressing applied. Post debridement measurements: 16 mm x 16mm x 3mm. Character of the wound post debridement is stable (29790).?Keratoma Treatment:?Parring or Cutting of Benign Hyperkeratotic Lesion(s)?(-57) More than 4 Lesions - Due to the at risk nature of the patients medical condition as documented in the exam findings, performance of this keratoderma treatment is medically necessary as its management by an unskilled/untrained nonprofessional would put this patients foot and overall health at risk. Therefore, the benign hyperkeratotic lesions, ( 9) in total, locations as stated and described in the exam (?Medial,?IPJ,?TA,?Medial,?IPJ,?T5,?SUB MTH (s),?1,?Left?,?SUB MTH (s),?5,?Left?,?SUB MTH (s),?2,?Right?,?SUB MTH (s),?3,?Right?,?SUB MTH (s),?4,?Right?,?Plantar,?Heel(s),?B/L?), were pared, and/or cut utilizing a sterile 15 blade, tissue nippers, and/or power dremel instrumentation by the physician of record - [id number].? * Procedure Codes:?85700 DEBRI DE NAIL, 6 OR MORE, Modifiers: XS 27155 DEBRIDE SKIN/TISSUE, Modifiers: XS 52989 TRIM SKIN LESIONS, OVER 4, Modifiers: XS * Preventive Medicine:? ??Counseling:?Discussion:?-14: Office or other outpatient visit for the evaluation and management of an established patient, which required a medically appropriate history and/or examination and MODERATE level of DECISION MAKING for: 1 OR MORE CHRONIC PROBLEM(S) THATS WORSENING, 2 STABLE CHRONIC PROBLEMS, A NEWLY DIAGNOSED PROBLEM WITH UNCERTAIN PROGNOSIS, AN ACUTE COMPLICATED INJURY WITH MULTIPLE TREATMENT OPTIONS, OR AN ACUTE PROBLEM WITH ACCOMPANYING SYSTEMIC SYMPTOMS, THAT POSE(S) A MODERATE RISK OF MORBIDITY. THIS CONDITION MAY ALSO INCLUDE RX DRUG MANAGEMENT, OR A DECISON FOR MINOR SURGERY. The visit on the day of the encounter encompassed interpreting the data and educating the patient as to the nature of their condition, treatment options available according to their individual PMH, meds, allergies, and overall health/living conditions, as well as any potential risks or complications that may occur from a failure to adhere to, and participate in, the recommended course of therapy. The discussion included a complete verbal, and/or written explanation of the examination results, any x-rays taken, the proposed diagnosis, and outline of the treatment plan. A schedule for future care needs was also explained. The patient verbalized an understanding of the instructions at this time and agreed to be an active participant in their treatment. If the patient should think of any questions or concerns after the visit, I have encouraged the patient to call the office.?Consult:?The patient was counseled on the diagnosis, treatment options, and the need for a, Wound Care Center Consult due to pedal risk of limb/life, Pt indicated understanding the recommendations and accepts this treatment plan. An appointment will be made for the patient while they are here today, Wound Care Center was contacted. When todays office notes are received, they state they will contact patient for appt.?Digital Surgery:?Digital surgery was discussed with the patient, We elected to try conservative treatment at the present time, due to the patients medical history and increased asssociated post-operative risks.?Digital Treatment:?HT- I explained to the patient the possible etiologies of Hammertoes, including genetics/foot type/shoegear/activity level/exercise routine and the risks/benefits of all the different treatment options for their pain including: No treatment at all, Rest, Ice, New/supportive/wider/deeper Shoegear, Digital Padding/Strapping/Taping/Bracing/Gel protective sleeves, Foot/Ankle AFO Bracing, Stretching exercises, Deep Tissue Massage, Arch support/shoe inserts with splay metatarsal padding, and Custom orthoses. I insisted that any digital devices be removed daily and not worn overnight for safety. The patient is to carefully examine the toes daily for any skin irritation while using any splinting or padding device. The advantages and disadvantages of each option were discussed and the patients questions re: shoegear, padding, custom vs prefabricated inserts, activity level, and consistency in home treatment regimens for optimal success were answered to their verbally confirmed satisfaction.?Shoe Gear Counseling:?SHOE Rx - The patient was counseled in great detail on their muscoloskeletal foot and toe deformities which coincided with the dermatological presentations visualized on exam. We discussed how their deformities put the integrity of their feet at risk for potential pedal complications which makes the accomidative diabetic shoes and cutomizable inserts medically necessary. We discussed the different shoe and insert treatment types and options, as well as the important advantages for adhering to regularly wearing these accomidative devices daily. The patient was made aware of the fact that a failure to abide by these recommedations may be deleterious to their foot health as they are able to prevent many pedal complications such as skin irritation, skin ulceration, infection, and even loss of toe/foot/leg/or life. Time was also spent with the patient dispensing and discussing proper diabetic footcare techniques including daily skin moisturization, daily foot inspection for any interruption in skin integrity including open lesions, or sign of infection such as redness/malodor/drainage/swelling. Also discussed and recommended were procedures regarding daily shoe inspection for the presence of internal foreign bodies as well as any visualized irregular shoe or insert wear. Patient questions re: shoes, inserts, and self foot inspections were answered to their satisfaction as the patient verbally confirmed a full understanding of the above information. A Rx for Extra Depth Orthopedic Shoes with 3 pair of custom heat-molded inserts was dispensed.?Ulcer:?A detailed plan of care was reviewed with the patient. We emphasized the fact that the patient takes on an active participating role in the treatment process and emphasized to them that they are an included, valued, and important member of the wound healing team in order to reach an expedient successful outcome. The patient agreed to follow their medically recommended diet while increasing their protein intake if safely able to do so, maintain proper bodily hydaration, abide by weight-bearing restrictions at all times, quit all current smoking habits if any, and diligently follow any/all dressing change instructions. It was clearly made known to the patient that if they fail to do their part, they will likely extend their course of treatment as well as possibly increase their risk of adverse events including amputation. The patient was instructed on importance of proper wound care consisting of pressure reduction, and proper maintainance of a moist wound environment. The patient is to cleanse the wound with warm soapy water/peroxide/saline, or betadine BID based on product availability. The patient is to apply ( Neosporin, Polysporin, or Triple, ) Antibiotic to the wound and cover with a DSD as directed. The patient was instructed to change dressings according to orders, or PRN saturation, leaks. The patient was instructed to monitor and report any signs or symptoms of infection or any untoward reactions. Precautions Taken: Offloading/Pressure reduction via rest/ limited activity to essential to daily life only, cane/walker, shoe modification, accommodative padding, sharp debridement, and take/apply medication as directed. THE GOALS of wound debridement to remove devitilized tissue, decrease risk for infection, promote wound healing and prevent further complication were discussed/reviewed. Debridement frequency as indicated, Referral to Wound Care Center due to pedal risk of limb/life, Ralph per pt request, Wound Care Center was contacted. When today's office notes are received, they state they will contact patient for appt.? ??Screening/Special Tests:?Fall Risk?Screening:?No falls in the past year ?FALLS: Screening for Future Fall Risk?Have you had any falls with injury in the past year??No * Follow Up:?2 Months * Images: * Sign off status: Completed true * Provider:?Raj Sebastian DPM Date:?2024 Generated for Yasir danielson/Ilene/Gely on:?11/05/2024 04:51 PM EDT History and Physical Notes * HPI (History of Present Illness) Category Sub-Category Detail Notes Category Not es Toe pain Location: B/L feet Duration: several years Course: worse Aggravated by: shoes, any pressure Treatments: change in shoes Skin problems Treatments: medication (Hydr otheroblue) per [facility] [place], total contact cast, home health nursing 3 times per week (M,W,F) - states last visit was a week ago, would like to change wound care centers. Now prefers [facility] At Risk footcare Pt States Last PCP Visit: Date: 5 [facility] [place] Living at [facility] in [place] Examination Category Sub-Category Detail Notes Category Not es Neurological SENSORY: Neurological exa m demonstrates, reduced light touch sensation, reduced sharp/dull pin prick discrimination , reduced vibration sensation, B/L, 5.07 monofilament test performed at plantar aspects of 5 varied sites per foot shows sensation, absent, B/L Dermatologic SKIN FINDINGS: Skin exam reveal s Keratotic lesion(s) located at, Medial, IPJ, TA, Medial, IPJ, T5, SUB MTH (s), 1, Left , SUB MTH (s), 5, Left , SUB MTH (s), 2, Right , SUB MTH (s), 3, Right , SUB MTH (s), 4, Right , Plantar, Heel(s), B/L ULCER: LOCATION, Plantar, F orefoot, RIGHT, NOW, SIZE, 15mm X 15mm X 3mm, BASE, fibro-granular, RIM, hyperkeratotic, UNDERMINING, mild, TRACKING, Sub Q with Fat layer exposed, DRAINAGE, serosanguineous, moderate, NECROTIC TISSUE, loosely-adherent, yellow slough, MALODOR, absent, CALOR, absent, ERYTHEMA, absent Orthopedic FOOT MORPHOLOGY: Pes Planus stru cture , (-) Charcot collapse/destruction noted at MTJ FOOTWEAR EVALUATION: worn, non-supportiv e, shoe gear properties exacerbate patient's foot/toe deformity , shoe gear properties exacerbate patients foot/toe deformity DIGITAL DEFORMITIES: Digital contracture , PIPJ, 2-5 B/L, incompl-reducible to push-up test, no over, nor underlapping, with evidence of shoe producing skin irritation MUSCLE STRENGTH: 5/5 all groups in a symmetrical fashion, B/L General Examination GENERAL APPEARANCE: Reveals a pleasant, alert, well nourished, well-developed, well hydrated individual, who demonstrates proper attention to hygiene/body habitus, and is in no acute distress, Pt serves as own historian for office visit today FOOT EXAM: Lower Extremity Neurological Exa m performed:: Yes Visual exam of foot performed:: Yes Date: 06/09/2024 ORIENTED: person, place, and t june Footwear Evaluation Footwear Evaluation performe d:: Yes Ophthalmology Referral DIABETES EYE EXAM Procedure Perform ed:: Yes ?Date of Exam Performed: 07/29/2024 Diabetic Retinopathy Screening:: Yes Retinal Screening Performed:: Yes Findings of Diabetic Eye Exam:: no retin opathy Vascular DP PULSES (B): 0-1/4, B/L PT PULSES (B): 1/4, B/L CAPILLARY FILL TIME: delayed, all digits , B/L TEMPERTURE GRADIENT (C): decreased, cool to cool, proximal to distal, B/L TROPHIC CONDITION-TEXTURE/ELASTICITY/TURGOR/HAIR GROWTH (B): decreased, with sparse to absent hair gr owth, B/L EDEMA (C): 1/4, non-pitting, wi thout aching pain, B/L, Ankle(s), Feet PIGMENTATION: rubrous, B/L Nails NAILS are: Elongated, overg rown, dystrophic, lytic, greater than 3mm thick, discolored and friable with crumbly malodorous subungual debris, TA, T1, T2, T3, T4, T5, T6, T7, T8, T9
--- OUTSIDE RECORDS SUMMARY | 2024-11-05 16:51 | XMS_ITS | Encounter Summary ---
Author Organization [employer] Address [address] [facility] 7t [place] [address] Care Team Providers Care Bilingual Case Manager Name Role Phone Sharon Quijano [facility] Primary Care Provider [phone] Irvin Zapata MD Unavailable [phone] Raj Sebastian Unavailable Mallorie Rosado Unavailable Jaqui Bowman MD Unavailable [phone] Jcarlos Archer MD Unavailable Salinas Albert MD Unavailable [phone] Rain Del Castillo MD Unavailable [phone] Encounter Details Date Type Department Care Team (Late st Contact Info) Description 11/24/[address] [address] Sharon Quijano [facility] [address] [place] [address] Social History Tobacco Use Types Packs/Day Years [...] Procedure Name Priority Date/Time Associated Diagnosis Comments HM COLONOSCOPY Routine 11/14/2023 documented in this encounter Results * Hm Colonoscopy (11/14/2023) Colonoscopy Normal Normal Comment:POLYPS REMOVED- GI R ECOMMENDATION 3 YEARS us Historical Provider HEALTH MAINTENANCE Final Result documented in this encounter Visit Diagnoses Not on filedocumented in this encounter Care Teams Bilingual Case Manager Relationship Specialty Start Date End Date CaliomarearnestanaSharon FNP [address] [place] [address] PCP - General Family Medicine 10/09/22 Irvin Zapata MD 10 [place] [address] Gastroenterology 04/28/24 Raj Sebastian [address] [place], [place] [address] Podiatry 04/28/24 Mallorie Rosado [address] [place] [address] Cardiology 04/28/24 Jaqui Bowman MD [address] [address] Endocrinology 04/28/24 Jcarlos Archer MD [address] [place] [address] Pulmonary Disease 04/28/24 Salinas Albert MD [address] [place] [address] FAX ([address] [place] [address] Urology 04/28/24 Rain Del Castillo MD [address] [place] [address], [address] [place] [address] Neurology 04/28/24 Jreemy Oconnor Psychiatrist 04/28/24 Vasu Angulo Psychologist 04/28/24 documented as of this encounter
--- OUTSIDE RECORDS SUMMARY | 2024-11-05 16:51 | XMS_ITS | Encounter Summary ---
Author Organization [employer] Address [address] [facility] [address] 7t h Floor [place] [id number] Care Team Providers Care Resident Services Coordinator Name Role Phone Caliruthyana Sharon STUDENT AFFAIRS VICE PRESIDENT Primary Care Provider [phone] Irvin Zapata MD Unavailable [phone] Raj Sebastian Unavailable Mallorie Rosado Unavailable Jaqui Bowman MD Unavailable [phone] Jcarlos Archer MD Unavailable Salinas Albert MD Unavailable [phone] Rain Del Castillo MD Unavailable [phone] Encounter Details Date Type Department Care Team (Late st Contact Info) Description 12/08/[address] [place] [address] CaliomarmikeSharon FNP [address] [place] [address] Social History Tobacco Use Types Packs/Day Years [...] encounter Miscellaneous Notes * Telephone Encounter - Alli Tran - 12/08/2023 3:39 PM EDT Provider informs they received the urgent referral we sent them but they need to know if the patient is currently seeing a different neurologist before they can schedule him. documented in this encounter Plan of Treatment Not on file documented as of this encounter Visit Diagnoses Not on filedocumented in this encounter Care Teams Resident Services Coordinator Relationship Specialty Start Date End Date Sharon Quijano STUDENT AFFAIRS VICE PRESIDENT [address] [place] [address] PCP - General Family Medicine 10/09/22 Irvin Zapata MD [address] [place] [address] Gastroenterology 04/28/24 Raj Sebastian [address] [place] [address] Podiatry 04/28/24 Mallorie Rosado [address] [place] [address] Cardiology 04/28/24 Jaqui Bowman MD [address] [place] [address] Endocrinology 04/28/24 Jcarlos Archer MD [address] [place] [address] Pulmonary Disease 04/28/24 Salinas Albert MD [address] [place] [address] FAX ([address] [place] [address] Urology 04/28/24 Rain Del Castillo MD [address] [place] [address], [address] [place] [address] Neurology 04/28/24 Jeremy Oconnor Psychiatrist 04/28/24 Vasu Angulo Psychologist 04/28/24 documented as of this encounter
--- OUTSIDE RECORDS SUMMARY | 2024-11-05 16:51 | XMS_ITS | Encounter Summary ---
Author Organization [employer] Address [address] [facility] 7t [place] [address] Care Team Providers Care Satellite Specialist Name Role Phone CaliruthySharon perez ENTERER Primary Care Provider [phone] Irvin Zapata MD Unavailable [phone] Raj Sebastian Unavailable Mallorie Rosado Unavailable Jaqui Bowman MD Unavailable [phone] Jcarlos Archer MD Unavailable [phone] Salinas Albert MD Unavailable Rain Del Castillo MD Unavailable [phone] Encounter Details Date Type Department Care Team (Late st Contact Info) Description 02/18/2024 [facility] [address] [place] [address] Macie Sharon [facility] [address] [place], [place] [id number] Type 2 diabetes mellitus with hyperglycemia, with long-term current use of insulin ([facility]) Social History Tobacco Use Types Packs/Day Years [...] more drinks on one occasion? 0 09/01/2023 Depression Answer Date Recorded Patient Health Questionnaire-9 Score 9 01/26/2024 Patient Health Questionnaire-9 Score 9 01/26/2024 Last PHQ-9: Questionnaire Data Not on file 0 01/26/2024 Housing Stability Answer Date Recorded What is your housing situation today? I have na jessi 06/16/[address] you li [...] Answer Date Recorded Patient Health Questionnaire-2 Score 4 01/26/2024 Sex and Gender Information Value Date Recorded Sex Assigned at Male 09/24/2022 11:52 AM EST Legal Sex Male 6:23 PM EDT Gender Identity Male 10/30/2022 8:12 PM EDT Sexual Orientation Straight 05/31/2022 6: 23 PM EDT documented as of this encounter Plan of Treatment Scheduled Orders Name Type Priority Associated Diagnoses Orde r Schedule Comprehensive Metabolic Panel Lab Routine Type 2 diabetes mellitus with hyperglycemia, with long-term current use of insulin (CMS/HCC) Expected: 02/18/2024 (Approximate), Expires: 02/17/2025 documented as of this encounter Visit Diagnoses Diagnosis Type 2 diabetes mellitus with hyperglycemia, with long-term current use of insulin (CMS/HCC) documented in this encounter Additional Health Concerns Assessment Noted Time PHQ-9 Depression Total Score: 9 01/26/20 10:16 AM EDT documented as of this encounter Care Teams Satellite Specialist Relationship Specialty Start Date End Date Sharon Quijano FNP [address] [place] [address] PCP - General Family Medicine 10/09/22 Irvin Zpaata MD [address] [place] [address] Gastroenterology 04/28/24 Raj Sebastian [address] [place], [place] 107 Podiatry 04/28/24 Mallorie Rosado [address] [place] [address] Cardiology 04/28/24 Jaqui Bowman MD [address] [address] Endocrinology 04/28/24 Jcarlos Archer MD [address] [place] [address] Pulmonary Disease 04/28/24 Salinas Albert MD [address] [place] [address] (413) [place] [address] Urology 04/28/24 Rain Del Castillo MD [address] [place] [address], [address] [place] [address] Neurology 04/28/24 Jeremy Oconnor Psychiatrist 04/28/24 Vasu Angulo Psychologist 04/28/24 documented as of this encounter
--- OUTSIDE RECORDS SUMMARY | 2024-11-05 16:51 | XMS_ITS | Encounter Summary ---
Author Organization [employer] Address [address] [facility] [address] 7t [place] [address] Care Team Providers Care Leather Toggler Name Role Phone Sharon Quijano SOFÍA Primary Care Provider [phone] Irvin Zapata MD Unavailable Raj Sebastian Unavailable Mallorie Rosado Unavailable [phone] Jaqui Bowman MD Unavailable [phone] Jcarlos Archer MD Unavailable Salinas Albert MD Unavailable [phone] Rain Del Castillo MD Unavailable [phone] Encounter Details Date Type Department Care Team (Late st Contact Info) Description 01/29/2024 Orders Only [facility] [address] [place] [address] Provider, Not In System Social History Tobacco [...] Procedure Name Priority Date/Time Associated Diagnosis Comments DIABETES EYE EXAM Routine 08/25/2023 10:35 AM EST documented in this encounter Results * Diabetes Eye Exam (08/25/2023 10:35 AM EST) us Not In System Provider HEALTH MAINTENANCE Edited Result - Final documented in this encounter Visit Diagnoses Not on filedocumented in this encounter Additional Health Concerns Assessment Noted Time PHQ-9 Depression Total Score: 9 01/26/20 10:16 AM EDT documented as of this encounter Care Teams Leather Toggler Relationship Specialty Start Date End Date Sharon Quijano FNP [address] [place] [address] PCP - General Family Medicine 10/09/22 Irvin Zapata MD [address] [place] [address] Gastroenterology 04/28/24 Raj Sebastian [address] [place] [address] Podiatry 04/28/24 Mallorie Rosado [address] [place] [address] Cardiology 04/28/24 Jaqui Bowman MD 22 [facility], [address] [place] [address] Endocrinology 04/28/24 Jcarlos Archer MD [address] [place] [address] Pulmonary Disease 04/28/24 Salinas Albert MD [address] [place] [address] FAX ([address] [place] [address] Urology 04/28/24 Rain Del Castillo MD [address] [place] [address], [address] [place] [address] Neurology 04/28/24 Jeremy Oconnor Psychiatrist 04/28/24 Vasu Angulo Psychologist 04/28/24 documented as of this encounter
--- OUTSIDE RECORDS SUMMARY | 2024-11-05 16:51 | XMS_ITS | Encounter Summary ---
Author Organization [employer] Address [address] [facility] [address] [place] [address] Care Team Providers Care Assignment Desk Editor Name Role Phone Sharon Quijano SOFÍA Primary Care Provider [phone] Irvin Zapata MD Unavailable [phone] Raj Sebastian Unavailable Mallorie Rosado Unavailable Jaqui Bowman MD Unavailable [phone] Jcarlos Archer MD Unavailable [phone] Salinas Albert MD Unavailable [phone] Rain Del Castillo MD Unavailable [phone] Encounter Details Date Type Department Care Team (Late st Contact Info) Description 12/19/2023 Orders Only [facility] [address] [place] [address] Provider, Not In System Social History Tobacco [...] Name Priority Date/Time Associated Diagnosis Comments HM HEMOGLOBIN A1C Routine 12/11/2023 1:06 PM EDT documented in this encounter Results * HM Hemoglobin A1c (12/11/2023 1:06 PM EDT) us Not In System Provider HEALTH MAINTENANCE Final Result documented in this encounter Visit Diagnoses Not on filedocumented in this encounter Care Teams Assignment Desk Editor Relationship Specialty Start Date End Date Sharon Quijano SOFÍA [address] [place] [address] PCP - General Family Medicine 10/09/22 Irvin Zapata MD 10 [place] [address] Gastroenterology 04/28/24 Raj Sebastian [address] [place] [address] Podiatry 04/28/24 Mallorie Rosado [address] [place] [address] Cardiology 04/28/24 Jaqui Bowman MD [address] [address] Endocrinology 04/28/24 Jcarlos Archer MD [address] [place] [address] Pulmonary Disease 04/28/24 Salinas Albert MD [address] [place] [address] FAX (413[place] [address] Urology 04/28/24 Rain Del Castillo MD [address] [place] [address] Neurology 04/28/24 Jeremy Oconnor Psychiatrist 04/28/24 Vasu Angulo Psychologist 04/28/24 documented as of this encounter
--- OUTSIDE RECORDS SUMMARY | 2024-11-05 16:52 | XMS_ITS | Clinical Summary ---
Author Organization [employer] [facility] Address [address] [facility] 7[address] [place] [address] Care Team Providers Care Ground Crewman Mission Support Name Role Phone Sharon Quijano SOFÍA Primary Care Provider [phone] Irvin Zapata MD Unavailable [phone] Raj Sebastian Unavailable Mallorie Rosado Unavailable Jaqui Bowman MD Unavailable [phone] Jcarlos Archer MD Unavailable Salinas Albert MD Unavailable Rain Del Castillo MD Unavailable [phone] Allergies Active Allergy Reactions Criticality Noted Date Comments Aripiprazole 10/23/2022 Other reaction(s): Other (see comments) Bupropion Other Medium 10/09/2022 Anger, agitation, anxiety, insomnia Olanzapine 10/23/2022 Olanzapine-Samidorphan Other 01/07/2023 Other reaction(s): Other (see comments) Sulfa Antibiotics Rash,Hives Low 01/24/2017 Cariprazine Other Medium 09/01/2023 Hand tremor Medications metFORMIN XR (Glucophage-XR) 500 MG 24 hr tablet daily. 10/01/19 22 Active albuterol 108 (90 Base) MCG/ACT inhaler 06/26/20 22 Active Continuous Blood Gluc Sensor (FreeStyle Jenifer 3 Sensor) misc 06/29/20 22 Active Lantus SoloStar 100 UNIT/ML pen 06/29/20 22 Active HumaLOG KWIKPEN 100 UNIT/ML injection 06/14/20 22 Active BD Pen Needle Kelsi U/F 32G X 4 MM misc 05/27/20 Active Xarelto 20 MG tablet 06/24/20 Active Fluticasone-Umecli din-Vilant (Trelegy Ellipta) 100-62.5-25 MCG/ACT aerosol powder Inhale 1 puff in the morning. 09/20/19 Active divalproex (Depakote ER) 500 MG 24 hr tablet Take 1,000 mg by mouth 2 times daily. 10/25/19 23 Active clonazePAM (KlonoPIN) 1 MG tablet 01/24/20 Active benztropine (Cogentin) 0.5 MG tablet Take 0.5 mg by mouth 2 times daily. Active Caplyta 42 MG capsule Take 42 mg by mouth at bedtime. 08/26/19 24 Active metoprolol succinate XL (Toprol-XL) 50 MG 24 hr tabletIndications: Essential hypertension TAKE (1) TABLET DAILY IN THE MORNING. 90 tablet 3 04/14/20 24 Active atorvastatin (Lipitor) 20 MG tabletIndications: Mixed hyperlipidemia Take 1 tablet (20 mg) by mouth at bedtime. 90 tablet 3 09/27/19 25 Active pregabalin (Lyrica) 200 MG capsule Take 1 capsule by mouth 2 times daily. 09/24/19 25 Active Incontinence Supply Disposable (Depend Underwear X-Large) miscIndications:Ty pe 2 diabetes mellitus with diabetic polyneuropathy, with long-term current use of insulin ([facility]),Benign prostatic hyperplasia (BPH) with urinary urge incontinence 1 each 4 times daily. 120 each 2 10/28/19 25 Active pregabalin (Lyrica) 150 MG capsule Take 150 mg by mouth 2 times daily. 025 Discontinued Active Problems Problem Noted Date Diagnosed Date Benign prostatic hyperplasia (BPH) with urinary urge incontinence 10/27/2024 Age-related incipient cataract of both eyes 10/03 Erectile dysfunction due to diseases classified elsewhere 09/25/2022 Neuropathic ulcer of right foot 09/25/2022 Iron deficiency anemia secon mikey to inadequate dietary iron intake 09/25/2022 Alcoholism in remission 07/05/2022 Overview (10/09/2022): History of psychotic episode in setting of heavy alcohol use. Patient is now abstinent. Essential hypertension 07/05/2022 Assessment & Plan (10/13/2023 12:04 PM EDT): BP controlled. Continue current medication. Assessment & Plan (06/16/2023 8:36 AM EST): Decrease metoprolol succinate to 50 mg daily. Will recheck BP and symptoms at next follow-up. Morbid obesity 07/05/2022 Overview (09/01/2023): Obesity contributing to diabetes, hypertension, HLD, LEYLA. Assessment & Plan (09/01/2023 10:03 AM EST): Body mass index is 38.77 kg/m??. Hypertrophic cardiomyopathy 10/30/2021 Overview (10/09/2022): Followed by [facility]. Type 2 diabetes mellitus wit h hyperglycemia, with long-term current use of insulin 10/30/2021 Overview (09/01/2023): Followed by Jaqui Bowman MD. Assessment & Plan (09/01/2023 10:06 AM EST): Lab Results Component Value Date HGBA1C 11.2 (H) 10/09/2022 BG today 163. Repeat labs with next routine blood draw. Complete heart block 07/03/2021 Overview (09/25/2022): Last Assessment & Plan: Event monitor with no interim results available currently; message sent to cardiology to track these down as we typically get them intermittently during the month. Pulmonary nodules 06/04/2021 Type 2 diabetes mellitus with diabetic polyneuro melvi 05/04/2021 Assessment & Plan (10/13/2023 11:59 AM EDT): Lab Results Component Value Date HGBA1C 9.2 (A) 09/24/2023 Uncontrolled diabetes, but significantly improved since last check. Continue to follow with endocrinology for management. Foot exam today confirms polyneuropathy, callus on the bottom of right foot. Recently discharged from wound care and no indication of recurrent wound at this time. LEYLA (obstructive sleep apnea) 02/26/2021 Overview (09/25/2022): Last Assessment & Plan: F/u with sleep med re CPAP which he is not using Bipolar 1 disorder 09/21/2020 Overview (10/13/2023): Currently managed by psychiatry. Assessment & Plan (10/13/2023 12:02 PM EDT): Stable mood and tremor improving with change from Vraylar to Caplyta. Continue to follow with psychiatry. Diabetic gastroparesis ([facility]/HCC) 05/23/2020 Overview (09/25/2022): Last Assessment & Plan: He's made a lot of changes to his diet and is seeing improvements in his symptoms. Better glycemic control will help, too, and he sees Dr Bowman for this. Asthma-COPD overlap syndrome 05/16/2020 Overview (09/25/2022): Last Assessment & Plan: Therefore, 55-year-old former smoker with asthma and COPD complains of frequent shortness of breath and cough. It appears he has had a cough on and off for several months now but this more recent worsening he reports is for a couple of months - perhaps less, because he was feeling well when he saw his purchasing administrative assistant on June 04. He is observed to be coughing while the medical transcription is taking his vitals but I did not hear him cough during the half hour that we spent together. His oxygen saturation at 92% is somewhat below the 94 to 96% baseline we usually measure in the office. His most recent Covid test in our system was on July 06. He had a CAT scan of the chest in May which showed only tiny nodules that should be followed up in a year. He has had a chest x-ray as recently as July 03 while he was hospitalized for his heart block which was normal. Unfortunately I was unable to complete the history of the present illness or to examine him because he became frustrated with our conversation and left the office. Therefore, I was unable to complete my assessment or make a treatment plan. Liver lesion 03/13/2020 Overview (09/25/2022): Last Assessment & Plan: CT of his abdomen shows 3 liver lesions. The radiologist thought 1 was likely a benign hemangioma but that the other 2 are indeterminant and recommended a multiphase contrast-enhanced hepatic MRI. -This has not been ordered, would discuss with Dr. Zapata to see if he agrees with that recommendation. Paroxysmal atrial fibrillation 09/24/2018 Assessment & Plan (10/30/2022 8:20 PM EDT): Has upcoming appointment with Kate Bob MD. Mixed hyperlipidemia 05/28/2017 Assessment & Plan (10/13/2023 12:06 PM EDT): LDL Cholesterol, Calculated (MG/DL) Date Value 10/09/2022 102 Continue current medication. Type 2 diabetes mellitus wit h complication, with mcc current use of insulin pump 05/28/2017 Overview (10/09/2022): Followed by Dr. Jaqui Bowman. Generalized anxiety disorder 08/25/2001 Resolved Problems Problem Noted Date Diagnosed Date Resolved Date History of alcoholism 09/25/20222022 Overview (09/25/2022): sober since 08/2017, attends AA. MJ helps him not drink. Also h/o cocaine (intranasal, smoked) - last used 2013 - and psychedelics. Type 2 diabetes mellitus with foot ulcer 09/25/2022 04/28/2024 Bipolar affective disorder, currently manic, mild 07/05/2022 09/25/2022 Acute kidney injury 01/18/2021 09/01/19 24 Overview (09/25/2022): Last Assessment & Plan: Baseline creatinine of 0.9. Creatinine today 1.5. Possibly related to septic picture. We will give IV fluids and hold his enalapril. We will also hold Metformin and his sulfonylurea. We will follow renal function. Acute post-traumatic stress disorder 09/25/2002 09/01/2023 Encounters Date Type Department Care Team Description 10/27/2024 9:40 AM EDT Office Visit [address] [address] Sharon Quijano FNP Type 2 diabetes mellitus with diabetic polyneuropathy, with long-term current use of insulin ([facility]) (Primary Dx); Benign prostatic hyperplasia (BPH) with urinary urge incontinence 10/13/[address] [place] [address] Sharon Quijano FNP 09/24/[address] [address] Sharon Quijano FNP 09/06/2024 Orders Only [facility] [address] [place] [address] Provider, Not In System from Last 3 Months Immunizations Name Administration Dates Next Due Influenza Injectable Quadriv alant Preservative Free IIV4 MDCK 04/24/2023 Influenza injectable quadriv alent IIV4 with preservative 05/09/2021 Influenza injectable quadriv alent preservative free 05/22/2022,05/22/2020,06/10/2018,05/28 Influenza, IIV3, injectable 06/04/2019 Influenza, Injectable, MDCK, preservative free 04/14/2024 Moderna Covid-19 Vaccine 12+ 10/23/2021, 04/11/2021,11/07/2020,10/10 Novel [id number] 06/24/2009 Pfizer Covid-19 Vaccine 12+ Bivalent 05/22/2022 Pneumococcal Conjugate PCV 20 09/01/2023 Pneumococcal Polysaccharide PPSV23 11/26/2017 Tdap 09/01/2023 Zoster, Recombinant 04/15/2024,05/09/2021 Family History Medical History Relation Name Comments Cancer Father Melvin Keith mesothelioma Hearing loss Father Melvin Keith mesothelioma Diabetes Father's Brother Aneesh Keith Arthritis Mother Tammy Rushing Miscarriages / Stillbirths Mother Tammy Rushing Mental illness Paternal Grandfather Sherman Keith Diabetes Paternal Grandmother Anthony Jimenez Drug abuse Son None Relation Name Status Comments Father Melvin Keith mesothelioma Father's Brother Aneesh Keith Mother Tammy Rushing Paternal Grandfather Sherman Keith Paternal Grandmother Anthony Jimenez Son None Social History Tobacco Use Types Packs/Day Years Used Date Smoking Tobacco: Former Cigarettes 0.5 40 0 04/04/1981 - 12/03/2017 Pipe Cigars Passive Smoke Exposure: Past Smokeless Tobacco: Former Snuff Quit: 08/04/2014 Tobacco Cessation:Counseling Given: Yes Alcohol Use Standard Drinks/Week Comments Not Currently [...] the past 12 months, has t he [employer], gas, oil or water company threatened to shut off services in your home? No 06/16/2023 Depression Answer Date Recorded Patient Health Questionnaire-2 Score 4 01/26/2024 Internet Access Answer Date Recorded Internet Access Q1 Yes 04/09/2024 Internet Access Q2 Not on file 04/09/2024 Sex and Gender Information Value Date Recorded Sex Assigned at Male 09/24/2022 11:52 AM EST Legal Sex Male 6:23 PM EDT Gender Identity Male 10/30/2022 8:12 PM EDT Sexual Orientation Straight 05/31/2022 6: 23 PM EDT Last Filed Vital Signs Vital Sign Reading Time Taken Comments Blood Pressure 138/80 10/27/2024 9:46 AM EDT Pulse 71 10/27/2024 9:46 AM EDT Temperature 36.4 ??C (97.6 ??F) 10/27/2024 9:46 AM ED T Respiratory Rate - - Oxygen Saturation 95% 10/27/2024 9:46 AM EDT Inhaled Oxygen Concentration - - Weight 123 kg (272 lb) 10/27/2024 9:46 AM EDT Height 180.3 cm (5' 11 ) 04/28/2024 9:22 AM EDT Body Mass Index 37.94 04/28/2024 9:22 AM EDT Plan of Treatment Health Maintenance Due Date Last Done Comments CT Colonography 1964 FIT DNA/Cologuard 1964 FIT 1964 FOBT 1964 Sigmoidoscopy 1964 Alcohol/Substance Use Screening 1976 Hepatitis A Vaccines (1 of 2 - Risk 2-dose series) 11/13/1983 Hepatitis B Vaccines (1 of 3 - 19+ 3-dose series) 11/13/1983 SDOH Screening 06/16/2024 06/16/2023 Depression Monitoring (PHQ-9) 07/27/2024 01/26/2024, 01/26/2024 Lung Cancer Screening 09/22/2024 09/22/2023 Diabetes: Urine Protein Screening 09/24/2024 09/24/2023, 10/17/2022, 10/30/2021 Diabetes: Hemoglobin A1C 10/20/2024 024, 07/22/2024, 04/26/2024, Additional history exists Depression Screening 01/25/2025 01/26/2024, 01/26/20 Diabetes: Foot Exam 01/25/2025 01/26/2024, 01/26/2024, 01/26/2024, Additional history exists Lipid Panel 07/22/2025 07/22/2024, 05/0 04/2024, 09/24/2023, Additional history exists Eye Exam 08/25/2025 08/25/2023 Tobacco Screening 10/27/2025 10/27/2024 Colonoscopy 11/13/2026 11/14/2023 Colorectal Cancer Screening 11/13/2026 DTaP/Tdap/Td Vaccines (2 - Td or Tdap) 09/01/2033 09/01/2023 RSV Patients and Patients Aged 60 years or older (1 - 1-dose 75+ series) 11/13/2039 HIV Screening Completed 10/30/2021 Pneumococcal Vaccine: 50+ Years Completed 09/01/2023, 11/26/2017 Hepatitis C Screening Completed 10/13/2023 COVID-19 Vaccine Completed 04/14/2024, , 05/22/2022, Additional history exists Influenza Vaccine Completed 04/14/2024, , 05/22/2022, Additional history exists Zoster Vaccines Completed 04/15/2024, 05/09/2021 HIB Vaccines Aged Out No longer eligi ble based on patient's age to complete this topic HPV Vaccines Aged Out No longer eligi ble based on patient's age to complete this topic IPV Vaccines Aged Out No longer eligi ble based on patient's age to complete this topic Meningococcal Vaccine Aged Out No shwetha divina eligible based on patient's age to complete this topic RSV under 20 months Aged Out No longe r eligible based on patient's age to complete this topic Rotavirus Vaccines Aged Out No longer eligible based on patient's age to complete this topic Procedures Procedure Name Priority Date/Time Associated Diagnosis Comments TRANSTHORACIC ECHO (TTE) LIMITED Routine 09/01/2024 12:20 PM EST HEMOGLOBIN A1C Routine 07/22/2024 1:40 PM EST LIPID PANEL, STANDARD Routine 07/22/2024 1:38 PM EST HM COLONOSCOPY Routine 11/14/2023 HEPATITIS C AB W/REFL TO HCV RNA, QN, PCR Routine 10/13/2023 11:50 AM EDT Screen for sexually transmitted diseases ALBUMIN/CREATININE RATIO, TIMED URINE Routine 09/24/2023 LUNG CANCER SCREENING Routine 09/22/2023 DIABETES EYE EXAM Routine 08/25/2023 10:35 AM EST ZZZ HISTORICAL HIV AB-AG W/RFLX TO HIV QNT Routine 10/30/2021 4:49 PM EDT from Last 3 Months or Most Recently Relevant to Health Maintenance Results * Transthoracic echo (TTE) limited (09/01/2024 12:20 PM EST) us Not In System Provider CV ECHO PROCEDURES Edited Result - Final * Hemoglobin A1c (07/22/2024 1:40 PM EST) Blood Venous blood specimen / Unknown us Not In System Provider LAB BLOOD ORDERABLES Edit ed Result - Final * Lipid Panel, Standard (07/22/2024 1:38 PM EST) Blood Venous blood specimen / Unknown Not In System Provider LAB BLOOD ORDERABLES Edit ed Result - Final * Colonoscopy (11/14/2023) [facility] Colonoscopy Normal Normal Comment:POLYPS REMOVED- GI R ECOMMENDATION 3 YEARS Historical Provider MD HEALTH MAINTENANCE Final Result * Hepatitis C Antibody with Reflex to HCV, RNA, Quantitative, Real-Time PCR (10/13/2023 11:50 AM EDT) [facility] Hepatitis C Antibody NON-REACT SHAHAB NON-REACT SHAHAB [facility] Comment: HCV antibody was non-reactive. There is no laboratory evidence of HCV infection. In most cases, no further action is required. However, if recent HCV exposure is suspected, a test for HCV RNA (test code 55730) is suggested. For additional information please refer to http://education.NTQ-Data/faq/XYF30a5 (This link is being provided for informational/ educational purposes only.) Blood Venous blood specimen / Unknown 10/13/2023 11:50 AM EDT 10/13/2023 11:51 AM EDT Narrative [facility] - 10/14/2023 12:31 PM EDT FASTING:NO FASTING: NO Result [facility] LAB BLOOD ORDERABLES Final Result [facility] [address], [place] [address] [facility] [address] [place] [address] * Albumin/Creatinine Ration, Timed Urine (09/24/2023) Urine Urine specimen obtained by clean catch procedure / Unknown Result [facility] LAB URINE ORDERABLES Final Result * Lung Cancer Screning (09/22/2023) [facility] Lung CT LUNGRADS 2 LUNGRADS 1, LUNGRADS 2 Comment:see report Anatomical Region Laterality Modality Other us Historical Provider HEALTH MAINTENANCE Final Result * Hm Diabetes Eye Exam (08/25/2023 10:35 AM EST) us Not In System Provider HEALTH MAINTENANCE Edited Result - Final * HIV AB-AG W/RFLX TO HIV QNT (10/30/2021 4:49 PM EDT) RESULT 4TH GEN HIV AB-AG NEGATIVE (NEG) [facility] 10/30/2021 4:49 PM EDT us Historical Provider HISTORICAL/NON ORDERABLE LABS Final Result Performing Organization Address City/State/[facility] Co de Phone Number [facility] [address] from Last 3 Months or Most Recently Relevant to Health Maintenance Insurance [facility] [address] [place] [address] [id number] [place] [address] [id number] [place] [address] Care Teams Ground Crewman Mission Support Relationship Specialty Start Date End Date Sharon Quijano FNP [address] [place] [address] PCP - General Family Medicine 10/09/22 Irvin Zapata MD [address] [place] [address] Gastroenterology 04/28/24 Raj Sebastian [address] [place] [address] Podiatry 04/28/24 Mallorie Rosado [address] [place] [address] Cardiology 04/28/24 Jaqui Bowman MD [address] [place] [address] Endocrinology 04/28/24 Jcarlos Archer MD [address] [place] [address] Pulmonary Disease 04/28/24 Salinas Albert MD [address] [place] [address] FAX [phone] Gutierrez [phone] Urology 04/28/24 Rain Del Castillo MD [address] [place] [address], [address] [place] [address] Neurology 04/28/24 Jeremy Oconnor Psychiatrist 04/28/24 Vasu Angulo Psychologist 04/28/24
--- OUTSIDE RECORDS SUMMARY | 2024-11-05 16:52 | XMS_ITS | Encounter Summary ---
Author Organization [employer] Address [address] [facility] [address] 7[address] [place] [address] Care Team Providers Care Program Director Scouting Name Role Phone Sharon Quijano SOFÍA Primary Care Provider [phone] Irvin Zapata MD Unavailable [phone] Raj Sebastian Unavailable Mallorie Rosado Unavailable [phone] Jaqui Bowman MD Unavailable [phone] Jcarlos Archer MD Unavailable [phone] Salinas Albert MD Unavailable [phone] Rain Del Castillo MD Unavailable [phone] Encounter Details Date Type Department Care Team (Late st Contact Info) Description 09/06/2024 Orders Only [facility] [address] [place] [address] Provider, Not In System Social History Tobacco [...] (TTE) LIMITED Routine 09/01/2024 12:20 PM EST documented in this encounter Results * Transthoracic echo (TTE) limited (09/01/2024 12:20 PM EST) us Not In System Provider CV ECHO PROCEDURES Edited Result - Final documented in this encounter Visit Diagnoses Not on filedocumented in this encounter Additional Health Concerns Assessment Noted Time PHQ-9 Depression Total Score: 9 01/26/20 10:16 AM EDT documented as of this encounter Care Teams Program Director Scouting Relationship Specialty Start Date End Date Sharon Quijano FNP [address] [place] [address] PCP - General Family Medicine 10/09/22 Irvin Zapata MD [address] [place] [address] Gastroenterology 04/28/24 Raj Sebastian [address] [place] [address] 107 Podiatry 04/28/24 Mallorie Rosado [address] [place], [place] Cardiology 04/28/24 Jaqui Bowman MD [address] [place] [address] Endocrinology 04/28/24 Jcarlos Archer MD [address] [place] [address] Pulmonary Disease 04/28/24 Salinas Albert MD [address] [place] [address] FAX [phone] [place] [address] Urology 04/28/24 Rain Del Castillo MD [address] [place] [address], [facility] [address] [place] [address] Neurology 04/28/24 Jeremy Oconnor Psychiatrist 04/28/24 Vasu Angulo Psychologist 04/28/24 documented as of this encounter
--- OUTSIDE RECORDS SUMMARY | 2024-11-05 16:52 | XMS_ITS | Encounter Summary ---
Author Organization [employer] Address [address] [facility] [address] [place] [address] Care Team Providers Care Paid Search Marketing Strategist Name Role Phone Sharon Quijano SOFÍA Primary Care Provider [phone] Irvin Zapata MD Unavailable [phone] Raj Sebastian Unavailable Mallorie Rosado Unavailable [phone] Jaqui Bowman MD Unavailable [phone] Jcarlos Archer MD Unavailable [phone] Salinas Albert MD Unavailable [phone] Rain Del Castillo MD Unavailable Encounter Details Date Type Department Care Team (Late st Contact Info) Description 07/30/2024 Orders Only [facility] [address] [place] [address] Provider, Not In System Social History Tobacco [...] Associated Diagnosis Comments HM HEMOGLOBIN A1C Routine 07/22/2024 1:4 1 PM EST HEMOGLOBIN A1C Routine 07/22/2024 1:40 PM EST COMPREHENSIVE METABOLIC PANEL Routine 07/22/2024 1:39 PM EST LIPID PANEL, STANDARD Routine 07/22/2024 1:38 PM EST documented in this encounter Results * HM Hemoglobin A1c (07/22/2024 1:41 PM EST) us Not In System Provider HEALTH MAINTENANCE Edited Result - Final * Hemoglobin A1c (07/22/2024 1:40 PM EST) Blood Venous blood specimen / Unknown us Not In System Provider LAB BLOOD ORDERABLES Edit ed Result - Final * Comprehensive Metabolic Panel (07/22/2024 1:39 PM EST) Blood Venous blood specimen / Unknown us Not In System Provider LAB BLOOD ORDERABLES Edit ed Result - Final * Lipid Panel, Standard (07/22/2024 1:38 PM EST) Blood Venous blood specimen / Unknown us Not In System Provider LAB BLOOD ORDERABLES Edit ed Result - Final documented in this encounter Visit Diagnoses Not on filedocumented in this encounter Additional Health Concerns Assessment Noted Time PHQ-9 Depression Total Score: 9 01/25/ 24 10:16 AM EDT documented as of this encounter Care Teams Paid Search Marketing Strategist Relationship Specialty Start Date End Date Sharon Quijano FNP [address] [place] [address] PCP - General Family Medicine 10/09/22 Irvin Zapata MD [address] [place] [address] Gastroenterology 04/28/24 Rja Sebastian [address] [place], [place] 107 Podiatry 04/28/24 AlonzoCarissatemicarlos Daniels [address] [place] [address] Cardiology 04/28/24 Jaqui Bowman MD [address] [place] [address] Endocrinology 04/28/24 Jcarlos Archer MD [address] [place] [address] Pulmonary Disease 04/28/24 Salinas Albert MD [address] [place] [address] FAX [phone] [address] Urology 04/28/24 Rain Del Castillo MD [address] [place] [address] Neurology 04/28/24 Jeremy Oconnor Psychiatrist 04/28/24 Vasu Angulo Psychologist 04/28/24 documented as of this encounter
--- OUTSIDE RECORDS SUMMARY | 2024-11-05 16:52 | XMS_ITS | Encounter Summary ---
Author Organization [employer] Address [address] [facility] 7t [place] [address] Care Team Providers Care Zyglo Technician Name Role Phone CaliruthySharon perez [facility] Primary Care Provider [phone] Irvin Zapata MD Unavailable [phone] Raj Sebastian Unavailable Mallorie Rosado Unavailable [phone] Jaqui Bowman MD Unavailable [phone] Jcarlos Archer MD Unavailable [phone] Salinas Albert MD Unavailable [phone] Rain Del Castillo MD Unavailable [phone] Encounter Details Date Type Department Care Team (Late st Contact Info) Description 05/07/[address] [address] Macie Sharon [address] [id number] Social History Tobacco Use Types Packs/Day Years [...] encounter Miscellaneous Notes * Telephone Encounter - SOFÍA Yeung - 05/11/2024 8:08 PM EDT Reviewed * Telephone Encounter - Alli Tran - 05/07/2024 4:01 PM EDT Provider wanted to let the care team know that they did not see the patient today for PT because hewas not feeling well. They said if we have any questions we can call them at [phone] documented in this encounter Plan of Treatment Not on file documented as of this encounter Visit Diagnoses Not on filedocumented in this encounter Additional Health Concerns Assessment Noted Time PHQ-9 Depression Total Score: 9 01/26/20 10:16 AM EDT documented as of this encounter Care Teams Zyglo Technician Relationship Specialty Start Date End Date Sharon Quijano FNP [address] [place] [address] PCP - General Family Medicine 10/09/22 Irvin Zapata MD [address] [place] [address] Gastroenterology 04/28/24 Raj Sebastian [address] [place] [address] 107 Podiatry 04/28/24 Mallorie Rosado [address] [place] [address] Cardiology 04/28/24 Jaqui Bowman MD [address] [place] [address], [address] [place] [address] Endocrinology 04/28/24 Jcarlos Archer MD [address] [place] [address] Pulmonary Disease 04/28/24 Salinas Albert MD [address] [place] [address] FAX [phone] [place] [address] Urology 04/28/24 Rain Del Castillo MD [address] [place] [address], [address] [place] [address] Neurology 04/28/24 Jeremy Oconnor Psychiatrist 04/28/24 Vasu Angulo Psychologist 04/28/24 documented as of this encounter
--- OUTSIDE RECORDS SUMMARY | 2024-11-05 16:52 | XMS_ITS | Encounter Summary ---
Author Organization [employer] Address [address] [facility] 7t [place] [address] Care Team Providers Care Library Clerk Name Role Phone CaliruthySharon perez [facility] Primary Care Provider [phone] Irvin Zapata MD Unavailable [phone] Raj Sebastian Unavailable Mallorie Rosado Unavailable Jaqui Bowman MD Unavailable [phone] Jcarlos Archer MD Unavailable Salinas Albert MD Unavailable [phone] Rain Del Castillo MD Unavailable [phone] Encounter Details Date Type Department Care Team (Late st Contact Info) Description 04/27/[address] [address] Macie Sharon [address] [id number] Social History Tobacco Use Types Packs/Day Years [...] encounter Miscellaneous Notes * Telephone Encounter - Kenya Bobo - 04/27/2024 1:13 PM EDT Returning a missed call. Confirmed his appointment for tomorrow. documented in this encounter Plan of Treatment Not on file documented as of this encounter Visit Diagnoses Not on filedocumented in this encounter Additional Health Concerns Assessment Noted Time PHQ-9 Depression Total Score: 9 01/26/20 10:16 AM EDT documented as of this encounter Care Teams Library Clerk Relationship Specialty Start Date End Date Sharon Quijano FNP [address] [place] [address] PCP - General Family Medicine 10/09/22 Irvin Zapata MD [address] [place] [address] Gastroenterology 04/28/24 Raj Sebastian [address] [place] [address] 107 Podiatry 04/28/24 Mallorie Rosado [address] [place] [address] Cardiology 04/28/24 Jaqui Bowman MD [address] [place] [address] Endocrinology 04/28/24 Jcarlos Archer MD [address] [place] [address] Pulmonary Disease 04/28/24 Salinas Albert MD [address] [place] [address] FAX [phone] [phone] Gutierrez [address] Urology 04/28/24 Rain Del Castillo MD [address] [place] [address], [address] SULEIM[place] Rosas [address] Neurology 04/28/24 Jeremy Oconnor Psychiatrist 04/28/24 Vasu Angulo Psychologist 04/28/24 documented as of this encounter
--- OUTSIDE RECORDS SUMMARY | 2024-11-05 16:52 | XMS_ITS ---
Author Organization [facility] Address [address] [facility] [place] [address] Care Team Providers Care Band Scroll Saw Operator Name Role Phone Sharon Quijano Primary Care Provider Unavail able Raj Sebastian Unavailable [phone] Allergies Allergen (clinical drug ingredient) Drug/Non Drug [...] Duration) Notes Start Date End Date Status OLANZapine 7.5 MG 1 tablet Orally Once a day for 30 day(s) Not-Taking KlonoPIN Not-Taking Cymbalta 60 MG 1 capsule Orally Once a day for 30 day(s) Not-Taking buPROPion HCl Not-Ta yasmin Amiodarone HCl Not-T aking Super B Complex/Vitamin C - as directed Orally No t-Taking Triple Complex Formula 3 Kit Magnesium, 300mg Not-Taking Vraylar 4.5 MG as directed Orally twice a day Not-Taking Ammonium Lactate 12 % 1 application to affected area Externally to feet Twice a day for 30 days Not-Taking Iron Not-Taking Gabapentin 600 MG 1 capsule Orally three times a day Not-Taking Omeprazole 20 MG 1 capsule 30 minutes [...] day for 30 day(s) Active HumaLOG Active Lantus Active metFORMIN HCl 500 MG 1 tablet with a vianey l Orally Once a day for 30 day(s) Active Metoprolol Succinate 50 MG 1 capsule Orally Once a day Active Depakote 500 MG 1 tablet Orally Twice a day Active Fluticasone Propionate Active albuterol inhaler Active Atorvastatin Calcium 20 MG 1 tablet Orally Once a day for 30 day(s) Active clonazePAM 1 MG 1 tablet Orally Once a day Active Extra Depth Orthopedic Shoes (1 Pair) with Customized Heat Molded Multidensity Innersoles (3 Pair) as directed Dx: NIDDM/Polyneuropathy (E11.42), Hammertoe Foot Deformity (M20.41,M20.42), Preulcerative Skin Lesion(s) (L85.1 Active Caplyta Active Lexapro Active Lyrica Active Benztropine Mesylate 0.5 MG 1 tablet at bedtime Orally Once a day twice a day Active Social History Tobacco Use: Social History Observation [...] of Vaping - THC, 4 y ears Vital Signs Height 5ft 10in in 06/29/2024 Weight 270 lbs 06/29/2024 BMI 38.74 kg/m2 06/29/2024 Blood pressure systolic 120 mm Hg 06/29/20 24 Blood pressure diastolic 70 mm Hg 024 Procedures Procedure Date Ordered Date Performed Result Body Sit e 39984-ZWFGRAQ NAIL, 6 OR MORE 06/29/2024 N/A 70507- Debride <25 sq cm 06/29/2024 N/A 84926-CTCR SKIN LESIONS, OVER 4 06/29/2024 N/A Encounters Encounter Location Date [facility] [address] [place] [address] 06/29/2024 Raj Sebastian Type 2 diabetes mellitus with diabetic polyneuropathy E11.42 ; Tinea unguium B35.1 ; Other hammer toe(s) (acquired), right foot M20.41 ; Other hammer toe(s) (acquired), left foot M20.42 and Neuropathic ulcer of right foot, limited to breakdown of skin L97.511 Assessments Encounter Date Diagnosis (ICD Code) Assessment Notes Treatment Notes Treatment Clinical Notes Section Notes 06/29/2024 Type 2 diabetes mellitus with diabetic polyneuropathy (ICD-10 - E11.42) 06/29/2024 Tinea unguium (ICD-10 - B35.1) 06/29/2024 Other hammer toe(s) (acquired), right foot (ICD-10 - M20.41) Patient Educated with: DIABETIC FOOT CARE INSTRUCTIONS. pdf (DIABETIC FOOT CARE INSTRUCTIONS. pdf) 06/29/2024 Other hammer toe(s) (acquired), left foot (ICD-10 - M20.42) 06/29/2024 Neuropathic ulcer of right foot, limited to breakdown of skin (ICD-10 - L97.511) Response to treatment Improving Patient Educated with: WOUND CARE INSTRUCTIONS. pdf (WOUND CARE INSTRUCTIONS. pdf) Plan Of Treatment Medication Medication Name Sig [...] CARE INSTRUCTIONS.pdf) Neuropathic ulcer of right f oot, limited to breakdown of skin Patient Educated with: WOUND CARE INSTRUCTIONS.pdf (WOUND CARE INSTRUCTIONS.pdf) Pending Test Test Name Order Date 33386-YUDSUPG NAIL, 6 OR MORE 06/29/2024 02544- Debride <25 sq cm 06/29/2024 70010-IAXO SKIN LESIONS, OVER 4 06/29/20 24 Next Appt Details Follow Up: 2 Months, Reason: Provider Name:Raj Sebastian , 12/20/2024 01:45:00 PM, [address] [facility], [address], [place], [address], Procedure Notes * Category Sub-Category Detail Notes [...] T2, T3, T4, T5, T6, T7, T8, T9), was performed exclusively by the physician of record to reduce/remove overall nail length, girth, thickness, subungual debris, and necrotic tissue, by manual and/or electrical means through the use of a nail nipper and/or dremel-type outer diameter grinder tool, to a more viable healthy nail plate [...] to maintain effectiveness in symptomatic relief - 30494 Debride skin< 25 sq cm Open wound NEUROPATH Y: Physician of record performed open wound selective debridement of first 25 sq cm or less, of devitilized necrotic/nonviable soft tissue, fibrin, and exudate extending from the epidermis through the dermis, utilizing sharp dissection with sterile 15 blade, and/or tissue nippers. Hemostasis was controlled through direct pressure. Sterile antibiotic dressing applied, ANESTHESIA was not required due to presence of NEUROPATHY. Post debridement measurements: 13mm x 13mm x 2mm. Character of the wound post debridement is stable (05727) Keratoma Treatment Parring or Cutting o f [...] MTH (s), 4, Right , Plantar, Heel(s), B/L), were pared, and/or cut utilizing a sterile 15 blade, tissue nippers, and/or power dremel instrumentation by the physician of record - 45817 Progress Notes * Pb KEITHDOB: [birth year] (58 yo M)Acc No.[id number]:06/29/2024 Progress Note Patient:?Pb KEITH Provider:?Raj Sebastian DPM :1965???Age:58 Y???Sex:Male Armand e:06/29/2024 Address:[address] [place], [place] [address] Pcp:Sharon Quijano Subjective: * Chief Complaints: * ???At Risk FootcareToe Irrit ationOpen sore * HPI: ???At Risk footcare:?Pt States Last PCP Visit:?Date?04/14/2024 ?Misc?States recently moved to independent living at the [facility].?Skin problems:?Treatments:?[facility] [place], total contact cast, home health nursing 3 times per week (M,W,F).?Toe pain:?Location:?B/L feet.?Duration:?several years.?Course:?worse.?Aggravated by:?shoes, any pressure.?Treatments:?change in [...] Medical History:? 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 ?Children: no, none. ?Exercise: yes, exercise, walking , 3 times per week 15 min. ?Marital status: . ?Occupation: Retired-, [employer] Worker. ???History of Vaping - THC, 4 years. [...] Deformity (M20.41,M20.42), Preulcerative Skin Lesion(s) (L85.1 Taking Caplyta Taking Lexapro Taking Lyrica Taking [...] Foot Deformity (M20.41,M20.42), Preulcerative Skin Lesion(s) (L85.1 Not-Taking/PRNGabapentin 600 MG Tablet 1 capsule Orally [...] Complex/Vitamin C - Tablet as directed Orally Not- Taking/PRN Triple Complex Formula 3 Kit , Notes to Pharmacist: Magnesium, 300mgNot- Taking/PRN Vraylar 4.5 MG Capsule as directed Orally [...] high BS - Allergyyes[Allergies Verified] Objective: * Vitals:?Ht:5ft 10in, Wt:270, BMI:38.74, Shoe size:14, BP:120/70mm Hg, BS:150, Ht-cm: 177.8 cm, Wt-k.47 kg. * ???Past Orders: ???Lab:HEMOGLOBIN A1C (GLYCO HEMOGLOBIN) (Order Date - 06/29/2024) (Collection Date & Time - 05/04/2024 04:00 PM) ? Value Reference Range ?TOTAL HEMOGLOBIN (HGBA1C) 8.9 * Examination: ???Neurological: ?SENSORY:? Neurological exam demonstrates, reduced light touch [...] , Plantar, Heel(s), B/L.?ULCER:?LOCATION, Plantar, Forefoot, RIGHT, NOW?SIZE, 12 mm X 12mm X 2mm, BASE, granular, RIM, hyperkeratotic, UNDERMINING, absent, TRACKING, Full thickness breakdown of skin, DRAINAGE, serosanguineous, mild, NECROTIC TISSUE, loosely-adherent, yellow slough, MALODOR, absent, [...] exacerbate patients foot/toe deformity.?Vascular: ?DP PULSES (B):? 0-14, B/L.?PT PULSES (B):? 1/4, B/L.?CAPILLARY FILL TIME:? delayed, all digits, B/L.?TROPHIC CONDITION-TEXTURE/ELASTICITY/TURGOR/HAIR GROWTH (B):? decreased,?with sparse to absent hair growth, B/L.?TEMPERTURE GRADIENT (C):? decreased, cool to cool, proximal to distal, B/L.?PIGMENTATION:? rubrous, B/L.?EDEMA (C):? 1/4, non-pitting, without aching pain, B/L, Ankle(s), Feet.?Ophthalmology Referral: ?DIABETES EYE EXAM?Procedure Performed:?Yes ?Date of Exam Performed?04/26/2024 ?Diabetic Retinopathy Screening:?Yes ?Retinal Screening Performed:?Yes ?Findings of Diabetic Eye Exam:?no retinopathy?General Examination: ?GENERAL APPEARANCE:?Reveals a pleasant, alert, well [...] Worse (4),Rx Management (4)???5.?Neuropathic ulcer of right foot, limited to breakdown of skin - L97.511???Notes :Response to treatment Improving??? Plan: * Treatment: 2.?Other hammer toe(s) (acqu ired), right foot? Start Extra Depth Orthopedic Shoes (1 Pair) with Customized Heat Molded Multidensity Innersoles (3 Pair), as directed, Dx: NIDDM/Polyneuropathy (E11.42), Hammertoe Foot Deformity (M20.41,M20.42), Preulcerative Skin Lesion(s) (L85.1, 1, Refills 0.?? Notes: Patient Educated with: DIABETIC FOOT CARE INSTRUCTIONS.pdf (DIABETIC FOOT CARE INSTRUCTIONS.pdf)?? 3.?Neuropathic ulcer of righ t foot, limited to breakdown of skin?Procedure: 80776- Debride <25 sq cm Notes: Patient Educated with: WOUND CARE INSTRUCTIONS.pdf [...] T2, T3, T4, T5, T6, T7, T8, T9), was performed exclusively by the physician of record to reduce/remove overall nail length, girth, thickness, subungual debris, and necrotic tissue, by manual and/or electrical means through the use of a nail nipper and/or dremel-type outer diameter grinder tool, to a more viable healthy nail plate [...] to maintain effectiveness in symptomatic relief - 50131.?Debride skin< 25 sq cm:?Open wound?NEUROPATHY: Physician of record performed open wound selective debridement of first 25 sq cm or less, of devitilized necrotic/nonviable soft tissue, fibrin, and exudate extending from the epidermis through the dermis, utilizing sharp dissection with sterile 15 blade, and/or tissue nippers. Hemostasis was controlled through direct pressure. Sterile antibiotic dressing applied, ANESTHESIA was not required due to presence of NEUROPATHY. Post debridement measurements: 13mm x 13mm x 2mm. Character of the wound post debridement is stable ([address]113).?Keratoma Treatment:?Parring or Cutting of Benign Hyperkeratotic Lesion(s)?(-57) [...] MTH (s),?5,?Left?,?SUB MTH (s),?2,?Right?,?SUB MTH (s),?3,?Right?,?SUB MTH (s),?4,?Right?,?Plantar,?Heel(s),?B/L), were pared, and/or cut utilizing a sterile 15 blade, tissue nippers, and/or power dremel instrumentation by the physician of record - 00196.? * Procedure Codes:?87290 DEBRI DE NAIL, 6 OR MORE, Modifiers: XS 66868 ACTIVE WOUND CARE/20 CM OR <, Modifiers: XS 33064 TRIM SKIN LESIONS, OVER 4, Modifiers: XS [...] encouraged the patient to call the office.?Consult:?The Pt. was counseled on the diagnosis, treatment options, and the CONT need for a , Wound Care Center Consult due to pedal risk of limb/life.?Digital Surgery:?Digital surgery was discussed with the patient, [...] was dispensed.?Ulcer:?A detailed plan of care was AGAIN reviewed with the patient. We emphasized the [...] availability. The patient is to apply ( [facility]) to the wound and cover with a DSD as directed. The patient was instructed to change dressings according to orders, or PRN saturation, leaks. The patient was instructed to monitor and report any signs or symptoms of infection or any untoward reactions. Precautions Taken: Offloading/Pressure reduction via rest/ limited activity to essential to daily life only, cane, shoe modification, accommodative padding, sharp debridement, and take/apply medication as directed, Debridement frequency as indicated.? ??Screening/Special Tests:?Fall Risk?Screening:?No falls in the past year ?FALLS: Screening for Future Fall Risk?Have you had any falls with injury in the past year??No * Follow Up:?2 Months * Images: * Sign off status: Completed true * Provider:?Raj Sebastian DPM Date:?2023 Generated for Yasir danielson/Ilene/Gely on:?11/05/2024 04:51 PM EDT History and Physical Notes * HPI (History of Present Illness) Category Sub-Category Detail Notes Category Not es Toe pain Location: B/L feet Duration: several years Course: worse Aggravated by: shoes, any pressure Treatments: change in shoes Skin problems Treatments: medication (Hydr otheroblue) per [facility] [place], total contact cast, home health nursing 3 times per week (M,W,F) At Risk footcare Pt States Last PCP Visit: Date: 4 [facility] States recently move d to independent living at the [facility] Examination Category Sub-Category Detail Notes Category Not [...] B/L ULCER: LOCATION, Plantar, F orefoot, RIGHT, NOW SIZE, 12 mm X 12mm X 2mm, BASE, granular, RIM, hyperkeratotic, UNDERMINING, absent, TRACKING, Full thickness breakdown of skin, DRAINAGE, serosanguineous, mild, NECROTIC TISSUE, loosely-adherent, yellow slough, MALODOR, absent, [...] Perform ed:: Yes ?Date of Exam Performed: 04/26/2024 Diabetic Retinopathy Screening:: Yes Retinal Screening Performed:: [...]
--- OUTSIDE RECORDS SUMMARY | 2024-11-05 16:52 | XMS_ITS | Encounter Summary ---
Author Organization [employer] Address [address] [facility] 7t [place] [address] Care Team Providers Care Drapery Supervisor Name Role Phone CaliruthySharon perez [facility] Primary Care Provider [phone] Irvin Zapata MD Unavailable [phone] Raj Sebastian Unavailable Mallorie Rosado Unavailable Jaqui Bowman MD Unavailable [phone] Jcarlos Archer MD Unavailable [phone] Salinas Albert MD Unavailable Rain Del Castillo MD Unavailable [phone] Encounter Details Date Type Department Care Team (Late st Contact Info) Description 07/26/[address] [address] Macie Sharon [address] [id number] Social History Tobacco Use Types Packs/Day Years [...] your housing situation today? I have na bwoen 06/16/[address] you li [...] * Telephone Encounter - SOFÍA Yeung - 08/05/2024 8:38 AM EST Reviewed * Telephone Encounter - Zohra Camarillo - 07/27/2024 11:50 AM EST Called pt and confirmed that he stopped taking the Gabapentin, pt said he stopped and the pharmacy won't fill it anymore. Pt had no further questions. * Telephone Encounter - Grace Polk - 07/27/2024 8:39 AM EST LM informing patient on secure line of message * Telephone Encounter - SOFÍA Yeung - 07/27/2024 8:14 AM EST Please thank them for the notification. I was not aware. He should not take the gabapentin. Thanks! * Telephone Encounter - Alli Tran - 07/26/2024 3:28 PM EST Pharmacy informs they received a prescription of Gabapentin 600 MG 3x a day from us for this patient, but he has recently been prescribed Pregabalin 200 MG 2x a day. They wanted to confirm we were aware the patient has been prescribed the Pregabalin, their call back number is [phone] documented in this encounter Plan of Treatment Not on file documented as of this encounter Visit Diagnoses Not on filedocumented in this encounter Additional Health Concerns Assessment Noted Time PHQ-9 Depression Total Score: 9 01/26/20 10:16 AM EDT documented as of this encounter Care Teams Drapery Supervisor Relationship Specialty Start Date End Date Sharon Quijano FNP [address] [place] [address] PCP - General Family Medicine 10/09/22 Irvin Zapata MD [address] [place] [address] Gastroenterology 04/28/24 Raj Sebastian [address] [place] [address] 107 Podiatry 04/28/24 Mallorie Rosado [address] [place] [address] Cardiology 04/28/24 Jaqui Bowman MD [address] [address] Endocrinology 04/28/24 Jcarlos Archer MD [address] [place] [address] Pulmonary Disease 04/28/24 Salinas Albert MD [address] [place] [address] FAX ([address] [place] [address] Urology 04/28/24 Rain Del aCstillo MD [address] [place] [address], [facility] [address] [place] [address] Neurology 04/28/24 Jeremy Oconnor Psychiatrist 04/28/24 Vasu Angulo Psychologist 04/28/24 documented as of this encounter
--- OUTSIDE RECORDS SUMMARY | 2024-11-05 16:52 | XMS_ITS | Encounter Summary ---
Author Organization [employer] Address [address] [facility] [address] 7t h Floor [place] [id number] Care Team Providers Care Ready To Wear Department Manager Name Role Phone Caliruthyana Sharon [employer] Primary Care Provider [phone] Irvin Zapata MD Unavailable [phone] Raj Sebastian Unavailable Mallorie Rosado Unavailable Jaqui Bowman MD Unavailable [phone] Jcarlos Archer MD Unavailable Salinas Albert MD Unavailable [phone] Rain Del Castillo MD Unavailable [phone] Encounter Details Date Type Department Care Team (Late st Contact Info) Description 10/13/[address] [place] [address] CaliomarmikeSharon FNP [address] [place] [address] Social History Tobacco Use Types Packs/Day Years [...] encounter Miscellaneous Notes * Telephone Encounter - Chastity Woodard - 10/13/2024 9:58 AM EDT Leona from [facility] is calling to ask if sharon would sign medical orders if needed for patient, patient was reffered to them by the wound center but just wanted to give an FYI to pcp incaseof need later on [phone] documented in this encounter Plan of Treatment Not on file documented as of this encounter Visit Diagnoses Not on filedocumented in this encounter Additional Health Concerns Assessment Noted Time PHQ-9 Depression Total Score: 9 01/26/20 10:16 AM EDT documented as of this encounter Care Teams Ready To Wear Department Manager Relationship Specialty Start Date End Date Sharon Quijano FNP [address] [place] [address] PCP - General Family Medicine 10/09/22 Irvin Zapata MD [address] [place] [address] Gastroenterology 04/28/24 Raj Sebastian [address] [place] [address] 107 Podiatry 04/28/24 Mallorie Rosado [address] [place] [address] Cardiology 04/28/24 Jaqui Bowman MD [address] [place] [address] Endocrinology 04/28/24 Jcarlos Archer MD [address] [place], [place] [address] [address] Pulmonary Disease 04/28/24 Salinas Albert MD [address] [facility] FAX [phone] [place] [address] Urology 04/28/24 Rain Del Castillo MD [address] [place] [address], [address] [place] [address] Neurology 04/28/24 Jeremy Oconnor Psychiatrist 04/28/24 Vasu Angulo Psychologist 04/28/24 documented as of this encounter
== END 2024-11-05 16:37 | disposition home or self-care (01) ==
LOC: HO.HMCH 15:55
PROVIDERS: PCP Nurse Practitioner Women's Health; Visit Provider Internal Medicine
DX: Z00.00 Encounter for general adult medical examination without abnormal findings (principal); E11.42 Type 2 diabetes mellitus with diabetic polyneuropathy; Z79.4 Long term (current) use of insulin; E11.43 Type 2 diabetes mellitus with diabetic autonomic (poly)neuropathy; L97.519 Non-pressure chronic ulcer of other part of right foot with unspecified severity; R26.81 Unsteadiness on feet; E78.00 Pure hypercholesterolemia, unspecified; I48.20 Chronic atrial fibrillation, unspecified; J44.9 Chronic obstructive pulmonary disease, unspecified; E55.9 Vitamin D deficiency, unspecified; G47.00 Insomnia, unspecified; F31.60 Bipolar disorder, current episode mixed, unspecified; E66.9 Obesity, unspecified

== ENCOUNTER → 2024-11-05 15:55 | Outpatient (BNVA) | payer BC, SELFPAY | PROVIDERS: PCP Nurse Practitioner Women's Health; Visit Provider Internal Medicine | DX: Z00.00 Encounter for general adult medical examination without abnormal findings (principal); E11.42 Type 2 diabetes mellitus with diabetic polyneuropathy; E11.43 Type 2 diabetes mellitus with diabetic autonomic (poly)neuropathy; E11.621 Type 2 diabetes mellitus with foot ulcer; L97.519 Non-pressure chronic ulcer of other part of right foot with unspecified severity; R26.81 Unsteadiness on feet; E78.00 Pure hypercholesterolemia, unspecified; I48.20 Chronic atrial fibrillation, unspecified; J44.9 Chronic obstructive pulmonary disease, unspecified; E55.9 Vitamin D deficiency, unspecified; G47.00 Insomnia, unspecified; F31.60 Bipolar disorder, current episode mixed, unspecified; E66.9 Obesity, unspecified; Z79.4 Long term (current) use of insulin; Z79.899 Other long term (current) drug therapy | CPT/HCPCS: 96127 ==

== ENCOUNTER 2025-03-04 08:47 | Outpatient (REF) | payer MEDICARE, BC, SELFPAY ==
--- OUTSIDE RECORDS SUMMARY | 2025-03-04 09:00 | XMS_ITS | Encounter Summary ---
Author Organization [employer] Address [address] [facility] 7t [place] [address] Care Team Providers Care Semiconductor Processing Technician Name Role Phone Sharon Quijano Primary Care Provider [phone] Irvin Zapata MD Unavailable [phone] Raj Sebastian Unavailable Mallorie Rosado Unavailable [phone] Jaqui Bowman MD Unavailable [phone] Jcarlos Archer MD Unavailable Salinas Albert MD Unavailable Rain Del Castillo MD Unavailable Phil Voss MD Primary Care Provider Sharon Quijano LINE PALLETIZER Primary Care Provider [phone] Encounter Details Date Type Department Care Team (Late st Contact Info) Description 02/18/2024 Orders Only [facility] [address] [place] [address] Sharon Quijano FNP [address] [place] [address] Type 2 diabetes mellitus with hyperglycemia, with long-term current use of insulin ([facility]) Social History Tobacco Use Types Packs/Day Years [...] documented as of this encounter Care Teams Semiconductor Processing Technician Relationship Specialty Start Date End Date Sharon Quijano FNP [address] [place] [address] PCP - General Family Medicine 10/09/22 11/14/24 Phil Voss MD [address] [place] [address] Drive [address] [place] [address] PCP - General Internal Medicine 11/15/24 12/29/24 Sharon Quijano FNP [address] [place] [address] PCP - General Family Medicine 12/30/24 Irvin Zapata MD [address] [place] [address] Gastroenterology 04/28/24 Raj Sebastian [address] [place] [address] 107 Podiatry 04/28/24 Mallorie Rosado [address] [place] [address] Cardiology 04/28/24 Jaqui Bowman MD [address] [facility], 1st [place] [address] Endocrinology 04/28/24 Jacrlos Archer MD [address] [place] [address] 2[address] [place] [address] Pulmonary Disease 04/28/24 Salinas Albert MD [address] [place] [address] FAX [phone] [place] [address] Urology 04/28/24 Rain Del Castillo MD [address] [place] [address], [address] [place] [address] Neurology 04/28/24 Jeremy Oconnor Psychiatrist 04/28/24 Vasu Angulo Psychologist 04/28/24 documented as of this encounter
--- OUTSIDE RECORDS SUMMARY | 2025-03-04 09:01 | XMS_ITS | Patient Health Record ---
Author Organization [facility] Address [address] [place] [address] Care Team Providers Care Physical Chemistry Teacher Name Role Phone Bipin MERAZ [place] Primary Care Provider Unava ilRaj Kirkland Unavailable [phone] Allergies Allergen (clinical drug ingredient) Drug/Non Drug [...] Duration) Notes Start Date End Date Status Amiodarone HCl Not-T aking Fluticasone Propionate Active OLANZapine 7.5 MG 1 tablet Orally Once a day; Duration: 30 day(s) Not-Taking glipiZIDE ER 10 MG 1 tablet with breakfast Orally Once a day; Duration: 30 day(s) Active HumaLOG Active Lantus Active metFORMIN HCl 500 MG 1 tablet with a vianey l Orally Once a day; Duration: 30 day(s) Active Metoprolol Succinate 50 MG 1 capsule Orally Once a day Active Omeprazole 20 MG 1 capsule 30 minutes before morning meal Orally Once a day; Duration: 30 day(s) Active Potassium Gluconate 595 MG 1 capsule with food Orally Once a day; Duration: 30 day(s) Active Trelegy Ellipta 100-62.5-25 MCG/INH 1 puff Inhalation Once a day Active Xarelto 20 MG 1 tablet with food Orally Once a day; Duration: 30 day(s) Active buPROPion HCl Not-Ta yasmin Cephalexin 500 MG TAKE 1 CAPSULE BY MOUTH EVERY 12 HOURS FOR 10 DAYS Oral; Duration: 10 Days Active Extra Depth Orthopedic Shoes (1 Pair) with Customized Heat Molded Multidensity Innersoles (3 Pair) as directed Dx: NIDDM/Polyneuropathy (E11.42), Hammertoe Foot Deformity (M20.41,M20.42), Preulcerative Skin Lesion(s) (L85.1 Active Gabapentin 600 MG 1 capsule Orally three times a day Not-Taking Super B Complex/Vitamin C - as directed Orally No t-Taking Caplyta Active Triple Complex Formula 3 Kit Magnesium, 300mg Not-Taking Lexapro Active Vraylar 4.5 MG as directed Orally twice a day Not-Taking Lyrica Active Ammonium Lactate 12 % 1 application to affected area Externally to feet Twice a day; Duration: 30 days Not-Taking Benztropine Mesylate 0.5 MG 1 tablet at bedtime Orally Once a day twice a day Active Iron Not-Taking albuterol inhaler Active KlonoPIN Not-Taking Atorvastatin Calcium 20 MG 1 tablet Orally Once a day; Duration: 30 day(s) Active Cymbalta 60 MG 1 capsule Orally Once a day; Duration: 30 day(s) Not-Taking clonazePAM 1 MG 1 tablet Orally Once a day Active Depakote 500 MG 1 tablet Orally Twice a day Active Immunizations Vaccine Route Administration Date Status Comme nts Influenza Unknown 05/04/2022 Administered COVID-19 Moderna Vaccine Unknown 05/04/2022 Administered 1st 11/23/20,12/23/20 05/25/21,11/23/21 Social History Tobacco Use: Social History Observation Description Date Details (start date - stop date) Never Smoker NA - NA Tobacco use other than smoking: Question Answer Notes Are you an other tobacco user? No Tobacco Control (Standard) Question Answer Notes Tobacco use: Nonsmoker AUDIT-C (Standard) Question Answer Notes Did you have a drink containing alcohol in the p ast year? 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) Active confirmed Response to treatment Worse Vital Signs Blood pressure diastolic 70 mm Hg 12/20/2024 Height 6du61qy in 12/20/2024 Blood pressure systolic 120 mm Hg 12/20/2024 Weight 265 lbs 12/20/2024 BMI 38.02 kg/m2 12/20/2024 Procedures Procedure Date Ordered Date Performed Result Body Sit e 62123-BSRNQBE NAIL, 6 OR MORE 06/29/2024 N/A 55673- Debride <25 sq cm 06/29/2024 N/A 08141-CORU SKIN LESIONS, OVER 4 06/29/2024 N/A 88804-ONYQQGK NAIL, 6 OR MORE 09/23/2024 N/A 17763-MDWLDBW SKIN/TISSUE 09/23/2024 N/A 41578-TIVC SKIN LESIONS, OVER 4 09/23/2024 N/A 95364-TTSUCHP NAIL, 6 OR MORE 12/20/2024 N/A 99694-ZFNW SKIN LESIONS, OVER 4 12/20/2024 N/A Encounters Encounter Location Date Provider Diagnosis [address] [address] 06/29/2024 Raj Sebastian Type 2 diabetes mellitus with diabetic polyneuropathy E11.42 ; Tinea unguium B35.1 ; Other hammer toe(s) (acquired), right foot M20.41 ; Other hammer toe(s) (acquired), left foot M20.42 and Neuropathic ulcer of right foot, limited to breakdown of skin L97.[address] [address] 09/23/2024 Raj Sebastian Type 2 diabetes mellitus with diabetic polyneuropathy E11.42 ; Tinea unguium B35.1 ; Other hammer toe(s) (acquired), right foot M20.41 ; Other hammer toe(s) (acquired), left foot M20.42 and Neuropathic ulcer of right foot with fat layer exposed L97.[address] [address] 12/20/2024 Raj Sebastian Tinea unguium B35.1 and Type 2 diabetes mellitus with diabetic polyneuropathy E11.[address] [address] 09/23/2024 Raj Sebastian Assessments Encounter Date Diagnosis (ICD Code) Assessment Notes Treatment Notes Treatment Clinical Notes Section Notes 06/29/2024 Tinea unguium (ICD-10 - B35.1) 06/29/2024 Type 2 diabetes mellitus with diabetic polyneuropathy (ICD-10 - E11.42) 09/23/2024 Tinea unguium (ICD-10 - B35.1) 09/23/2024 Type 2 diabetes mellitus with diabetic polyneuropathy (ICD-10 - E11.42) 12/20/2024 Tinea unguium (ICD-10 - B35.1) 12/20/2024 Type 2 diabetes mellitus with diabetic polyneuropathy [...] Treatment Pending Test Test Name Order Date 80575-HXMEPEY NAIL, 6 OR MORE 09/18/2021 07857-KVHCWMB NAIL, 6 OR MORE 12/18/2021 58739-QXGBSJJ NAIL, 6 OR MORE 03/12/2022 67093-ISCKFNF NAIL, 6 OR MORE 06/19/2022 93969-IWDZKLY NAIL, 6 OR MORE 08/23/2022 06955-OOJFEIG NAIL, 6 OR MORE 10/29/2022 14004-JSEYRRP NAIL, 6 OR MORE 01/21/2023 11617-SYWDTAA NAIL, 6 OR MORE 04/15/2023 65160-GGSJHSB NAIL, 6 OR MORE 06/17/2023 97259-NZLTTYQ NAIL, 6 OR MORE 08/26/2023 75728-GGIXYFF NAIL, 6 OR MORE 06/29/2024 99163-HFIKBPY NAIL, 6 OR MORE 09/23/2024 85053-EINXPLV NAIL, 6 OR MORE 12/20/2024 22291-Zuymwikf Plate 08/26/2023 42085- Debride <25 sq cm 06/29/2024 49707-HAHPNJO SKIN/TISSUE 09/23/2024 84267-VIYETSR SKIN/TISSUE 10/29/2021 77930-ZFIQ SKIN LESIONS, OVER 4 08/26/19 24 87210-LKFY SKIN LESIONS, OVER 4 09/23/19 16734-YVWD SKIN LESIONS, OVER 4 06/29/20 19351-NVMI SKIN LESIONS, OVER 4 12/21/19 30592-COOK SKIN LESIONS, OVER 4 06/17/20 58793-GHFA SKIN LESIONS, OVER 4 04/15/20 55920-BLVH SKIN LESIONS, OVER 4 01/22/20 34554-YTKS SKIN LESIONS, OVER 4 10/30/19 36529-NBHH SKIN LESIONS, OVER 4 08/23/19 07986-WHSO SKIN LESIONS, OVER 4 06/19/20 05103-PILB SKIN LESIONS, OVER 4 12/19/19 70984-JYXC SKIN LESIONS, OVER 4 03/12/20 75702-MHIE SKIN LESIONS, OVER 4 09/18/19 Next Appt Details Provider Name:Raj Katie Sebastian , 05/11/2025 03:15:00 PM, [address] [facility], [facility] [address], [place], [address], Insurance Providers Payer Name Payer Address Payer Phone Subscriber Number Group Number Insured Name Patient Relationship to Insured Coverage Start Date Coverage End Date [facility] [id number] [place] [address] [id number] Colubma Queen Spouse - patient is the spouse [...] ablasion 08/2021 Hospitalization History Reason Date(Month/Year) Jacinto Toni - Afib due to meds overnight 2022 2x [facility] -springfiled/greenfie ld -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
[2025-03-04 09:11] LABS: MANUAL DIFF FLAG NO
[2025-03-04 09:30] LABS: Hematocrit 46.6 % (42.0-52.0); Hemoglobin 15.1 g/dl (14.0-18.0); Imm Gran Abs Auto 0.02 X10*3/uL (0.00-0.03); Imm Gran Pct Auto 0.3 % (0.0-0.4); Lymphocytes Absolute Auto 2.1 X10*3/uL (1.2-4.9); Mean Corpuscular HGB Conc 32.4 g/dl (31.0-36.0); Mean Corpuscular Hemoglobin 31.3 pg (27.0-33.0); Mean Corpuscular Volume 96.5 fL (80.0-98.0); NRBC Abs Auto 0.000 X10*3/uL (0.0-0.012); NRBC Pct Auto 0.0 /100WBC (0.0-0.2); Platelet Count 236 X10*3/uL (160-400); Red Blood Count 4.83 X10*6/uL (4.60-5.80); White Blood Count 7.6 X10*3/uL (4.8-10.8)
[2025-03-04 09:39] LABS: Appearance Urine Clear; Glucose Urine UA Negative (Negative); PH 5.5 (5.0-9.0); Specific Gravity - Urine 1.010 (1.005-1.025)
[2025-03-04 09:41] LABS: Hemoglobin A1C 394.6584 umol/L; Total Hemoglobin (HGBA1C) 3944.0593 umol/L
[2025-03-04 10:03] LABS: Microalbum/Creatinine Ratio Ur 17.8 ug/mg cr (<30)
[2025-03-04 10:08] LABS: Alanine Aminotransferase 33 U/L (0-40); Albumin Level 4.3 g/dL (3.5-5.0); Alkaline Phosphatase 57 U/L (39-117); Anion Gap 17 (12-20); Aspartate Amino Transferase 34 U/L (5-37); Blood Urea Nitrogen 11 mg/dL (9-16); Calcium 9.4 mg/dL (8.4-10.2); Carbon Dioxide 28 mmol/L (22-29); Chloride 103 mmol/L (96-108); Cholesterol 139 mg/dL (<200); Estimated Glomerular Filt Rate > 60; HDL Cholesterol 27 mg/dL (>40); Potassium 4.7 mmol/L (3.3-5.1); Sodium 143 mmol/L (135-145); Total Protein 8.1 g/dL (6.5-8.0); Triglycerides 142 mg/dL (<150)
[2025-03-04 10:34] LABS: Folate 11.8 ng/mL (> or = 4.0); Vitamin B12 792 pg/mL (200-900)
== END 2025-03-04 08:48 | disposition home or self-care (01) ==
LOC: HO.LAB 08:47
PROVIDERS: PCP Internal Medicine; Visit Provider Internal Medicine
DX: E11.9 Type 2 diabetes mellitus without complications (principal); E53.8 Deficiency of other specified B group vitamins; D64.9 Anemia, unspecified; E78.00 Pure hypercholesterolemia, unspecified; E55.9 Vitamin D deficiency, unspecified; R30.0 Dysuria
CPT/HCPCS: 36415; 80053; 80061; 81003; 82043; 82306; 82570; 82607; 82746; 83036; 84443; 85025

== ENCOUNTER 2025-03-07 14:02 | Outpatient (AMB) | payer BC, SELFPAY ==
--- OUTSIDE RECORDS SUMMARY | 2025-03-07 14:10 | XMS_ITS | Patient Health Record ---
Author Organization [facility] Address [address] [place] [address] Care Team Providers Care Straw Hat Plunger Operator Name Role Phone Bipin MERAZ [place] Primary Care Provider Unava ilRaj Kirkland Unavailable [phone] Allergies Allergen (clinical drug ingredient) Drug/Non Drug [...] Problem Acquired hammer toe of right foot (085486920844030 5) Other hammer toe(s) (acquired), right foot (M20.41) Active confirmed Problem Acquired hammer toe of left foot (698626628987127 3) Other hammer toe(s) (acquired), left foot (M20.42) Active confirmed Problem Polyneuropathy due to type 2 diabetes mellitus (589354805) Type 2 diabetes mellitus with diabetic polyneuropathy (E11.42) Active confirmed Problem 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) Active confirmed Response to treatment Worse Vital Signs Blood pressure diastolic 70 mm Hg 12/20/2024 Height 2ci26bu in 12/20/2024 Blood pressure systolic 120 mm Hg 12/20/2024 Weight 265 lbs 12/20/2024 BMI 38.02 kg/m2 12/20/2024 Procedures Procedure Date Ordered Date Performed Result Body Sit e 17812-WMKBHNG NAIL, 6 OR MORE 06/29/2024 N/A 19695- Debride <25 sq cm 06/29/2024 N/A 62930-BKPJ SKIN LESIONS, OVER 4 06/29/2024 N/A 68846-TOYJGHA NAIL, 6 OR MORE 09/23/2024 N/A 53123-FEFVGJW SKIN/TISSUE 09/23/2024 N/A 75330-ZITU SKIN LESIONS, OVER 4 09/23/2024 N/A 10657-FVXDCOY NAIL, 6 OR MORE 12/20/2024 N/A 17609-AKWN SKIN LESIONS, OVER 4 12/20/2024 N/A Encounters Encounter Location Date Provider Diagnosis [address] [address] 06/29/2024 Raj Sebastian Type 2 diabetes mellitus with diabetic polyneuropathy E11.42 ; Tinea unguium B35.1 ; Other hammer toe(s) (acquired), right foot M20.41 ; Other hammer toe(s) (acquired), left foot M20.42 and Neuropathic ulcer of right foot, limited to breakdown of skin L97.[address] [address] 09/23/2024 Raj Sebastian Type 2 diabetes mellitus with diabetic polyneuropathy E11.42 ; Tinea unguium B35.1 ; Other hammer toe(s) (acquired), right foot M20.41 ; Other hammer toe(s) (acquired), left foot M20.42 and Neuropathic ulcer of right foot with fat layer exposed L97.[address] [address] 12/20/2024 Raj Sebastian Tinea unguium B35.1 and Type 2 diabetes mellitus with diabetic polyneuropathy E11.[address] [address] 09/23/2024 Raj Sebastian Assessments Encounter Date Diagnosis [...] Treatment Pending Test Test Name Order Date 67692-TDYRMPM NAIL, 6 OR MORE 09/18/2021 81618-ELYFLCB NAIL, 6 OR MORE 12/18/2021 32102-UMAYCAE NAIL, 6 OR MORE 03/12/2022 31335-ILRPZCE NAIL, 6 OR MORE 06/19/2022 94633-QZWEVQT NAIL, 6 OR MORE 08/23/2022 15104-ORINFLH NAIL, 6 OR MORE 10/29/2022 74864-NKLRFLN NAIL, 6 OR MORE 01/21/2023 50251-TMKLIRH NAIL, 6 OR MORE 04/15/2023 11269-YOXSZEO NAIL, 6 OR MORE 06/17/2023 02054-CTYNYZD NAIL, 6 OR MORE 08/26/2023 28424-YANHMNA NAIL, 6 OR MORE 06/29/2024 09268-VZMADJC NAIL, 6 OR MORE 09/23/2024 00660-IIHUTPM NAIL, 6 OR MORE 12/20/2024 63538-Baxhmkcv Plate 08/26/2023 69743- Debride <25 sq cm 06/29/2024 13185-IRCPVCU SKIN/TISSUE 09/23/2024 22193-NFROERO SKIN/TISSUE 10/29/2021 26163-LQTR SKIN LESIONS, OVER 4 08/26/19 24 31224-LIAG SKIN LESIONS, OVER 4 09/23/19 03323-ZCKB SKIN LESIONS, OVER 4 06/29/20 16559-PIVF SKIN LESIONS, OVER 4 12/21/19 78713-WVCI SKIN LESIONS, OVER 4 06/17/20 26537-LGYU SKIN LESIONS, OVER 4 04/15/20 34737-CHFZ SKIN LESIONS, OVER 4 01/22/20 42539-OFDE SKIN LESIONS, OVER 4 10/30/19 37899-KJIO SKIN LESIONS, OVER 4 08/23/19 06066-KVLR SKIN LESIONS, OVER 4 06/19/20 78574-RZYC SKIN LESIONS, OVER 4 12/19/19 90201-OCEF SKIN LESIONS, OVER 4 03/12/20 54262-QGGY SKIN LESIONS, OVER 4 09/18/19 Next Appt Details Provider Name:Raj Katie Sebastian , 05/11/2025 03:15:00 PM, [address] [facility], [facility] [address], [place], [address], Insurance Providers Payer Name Payer Address Payer Phone Subscriber Number Group Number Insured Name Patient Relationship to Insured Coverage Start Date Coverage End Date [facility] [id number] [place] [address] [id number] Columba Queen Spouse - patient is the [...] episode due to meds bupropion overnight 2022 [facility], heart surgery, pac emaker 09/2021
--- OUTSIDE RECORDS SUMMARY | 2025-03-07 14:10 | XMS_ITS | Encounter Summary ---
Author Organization [employer] Address [address] [facility] 7t [place] [address] Care Team Providers Care Street Cleaner Name Role Phone Sharon Quijano Primary Care Provider [phone] Irvin Zapata MD Unavailable [phone] Raj Sebastian Unavailable Mallorie Rosado Unavailable Jaqui Bowman MD Unavailable [phone] Jcarlos Archer MD Unavailable [phone] Salinas Albert MD Unavailable Rain Del Castillo MD Unavailable Phil Voss MD Primary Care Provider Sharon Quijano DAIRY BAR MANAGER Primary Care Provider [phone] Encounter Details Date Type Department Care Team (Late st Contact Info) Description 02/18/2024 Orders Only [facility] [address] [place] [address] Sharon Quijano FNP [address] [place] [address] Type 2 diabetes mellitus with hyperglycemia, with long-term current use of insulin ([facility]) Social History Tobacco Use Types Packs/Day Years [...] documented as of this encounter Care Teams Street Cleaner Relationship Specialty Start Date End Date Sharon Quijano FNP [address] [place] [address] PCP - General Family Medicine 10/09/22 11/14/24 Phil Voss MD [address] [place] [address] Drive [address] [place] [address] PCP - General Internal Medicine 11/15/24 12/29/24 Sharon Quijano FNP [address] [place] [address] PCP - General Family Medicine 12/30/24 Irvin Zapata MD [address] [place] [address] Gastroenterology 04/28/24 Raj Sebastian [address] [place] [address] 107 Podiatry 04/28/24 Mallorie Rosado [address] [place] [address] Cardiology 04/28/24 Jaqui Bowman MD [address] [facility], 1st [place] [address] Endocrinology 04/28/24 Jcarlos Archer MD [address] [place] [address] 2nd [place] [address] Pulmonary Disease 04/28/24 Salinas Albert MD [address] [place] [address] FAX ([phone] [place] [address] Urology 04/28/24 Rain Del Castillo MD [address] [place] [address], [address] [place] [address] Neurology 04/28/24 Jeremy Oconnor Psychiatrist 04/28/24 Vasu Angulo Psychologist 04/28/24 documented as of this encounter
[2025-03-07 14:15] VITALS: BP 112/68; PULSE 68; O2SAT 96; BMI 39.7
--- NOTE | 2025-03-07 14:15 | MHC.PC.OV ---
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: No Accompanied by: Self / Same As Patient Allergies Sulfa (Sulfonamide Antibiotics) Allergy (Severe, Verified 03/07/25 14:56) Rash bupropion Adverse Reaction (Severe, Verified 03/07/25 14:56) manic olanzapine Adverse Reaction (Severe, Verified 03/07/25 14:56) weight gain Medication List - Last Reconciled 03/07/25 by Phil Voss MD atorvastatin 20 mg PO BEDTIME cholecalciferol (vitamin D3) 50 mcg PO DAILY 90 days clonazepam 1 mg PO DAILY divalproex ER (Depakote ER) 2,000 mg PO DAILY mwrugzgyufp-bdbinpyqz-zxkknkkf 100-62.5-25 mcg (Trelegy Ellipta) 1 inh inhalation DAILY insulin glargine (Basaglar KwikPen U-100 Insulin) 46 units subcut QAM insulin lispro (Humalog KwikPen (U-100) Insulin) 15 units subcut TID lumateperone (Caplyta) 42 mg PO DAILY metformin 2,000 mg PO BEDTIME metoprolol succinate ER 50 mg PO DAILY pregabalin 200 mg PO BID rivaroxaban (Xarelto) 20 mg PO QPM Tobacco use date assessed: 03/07/25 Dental Screening Dental Screen Date: 03/07/25 Did you have a dental visit in the last 12 months?: Yes Did you have a dental problem in the last 6 months where you did not have access to dental care?: No Was dental information given to patient?: Patient has dentist HPI Follow Up HPI Details Patient comes in today for his follow up visit States that he just saw Dr. Bowman at her [facility] office up in [place] for his follow up visit for his diabetes earlier this morning He denies any headaches or dizziness Reports on and off chest pains for the past 2 weeks but denies any increased shortness of breath Patient sees Dr. Colunga at [facility] for his cardiology follow up and reportedly just had some cardiac testing done a few months ago that ccame back normal No nausea/vomiting, no abdominal pain No change in bowel habits noted He had his follow-up labs done a few days ago - to discuss his results COUNT INCLUDES THE [facility] Medical History Vitamin D deficiency Chronic ulcer of right foot Diabetic neuropathy Bipolar disorder Chronic atrial fibrillation Asthma-COPD overlap syndrome Obesity (BMI 30-39.9) Insomnia Pure hypercholesterolemia Diabetes mellitus Pacemaker Surgical History Status post biventricular cardiac pacemaker insertion (~08/2021) Family History Other Mesothelioma Social History Housing: House Patient Tobacco Use Status: Former Tobacco user Tobacco use type: Cigarette e-Cigarette/Vaping Use: Currently Using Second Hand Smoke Exposure: No service: No Current occupational status: retired Current occupational exposures/hazards: No Cognitive needs: No Hearing needs: No Vision needs: No Questionnaire PHQ-9 Over the last 2 weeks, how often have you been bothered by any of the following problems? 1. Little interest or pleasure in doing things: several days 2. Feeling down, depressed, or hopeless: several days 3. Trouble falling or staying asleep, or sleeping too much: several days 4. Feeling tired or having little energy: several days 5. Poor appetite or overeating: several days 6. Feeling bad about yourself - or that you are a failure or have let yourself or your family down: several days 7. Trouble concentrating on things, such as reading the newspaper or watching television: several days 8. Moving or speaking so slowly that other people could have noticed. Or the opposite - being so fidgety or restless that you have been moving around a lot more than usual: several days 9. Thoughts that you would be better off or of hurting yourself in some way: not at all Total score: 8 Depression Screening Interpretation: Positive Depression Screening Follow-up: Existing condition and In treatment Depression Screening Done: Yes 96560 - PHQ-9 Billing: Yes Source: Developed by Drs. Toen Vogt, Dinora Damon, Jovna Shaikh and colleagues, with an educational kayla from [employer]. Thrive Questionnaire Date Thrive assessed: 03/07/25 I am a: Patient What is your living situation today?: I have a steady place to live Within the past 12 months, did the food you bought not last and you didn't have the money to get more?: Never true Within the past 12 months, did you worry whether your food would run out before you got money to buy more?: Never true Do you have trouble paying for medicines?: No Do you have trouble getting transportation to medical appointments?: No Do you have trouble paying your heating and electricity bill?: No Do you have trouble taking care of your child, family member or friend?: No Do you have trouble with day-to-day activities such as bathing, preparing meals, shopping, managing finances, etc.?: Yes Are you currently unemployed and looking for a job?: No Are you interested in more education?: No Please select the resources that you would like help with: None Currently or been in a relationship where the following occur: No concerns reported THRIVE Score: 0 AUDIT C Alcohol Use Questionnaire (AUDIT-C) 1. How often do you have a drink containing alcohol?: Never 3. How often do you have six or more drinks on one occasion?: Never Total Score: 0 Score Reviewed/Action Taken: Yes TIMI-7 AMB Questionnaire TIMI-7 Date TIMI - 7 assessed: 03/07/25 Feeling nervous, anxious, or on edge: 2 = More than half the days Not being able to stop or control worryin = Several days Worrying too much about different things: 1 = Several days Trouble relaxin = More than half the days Being so restless that it is hard to sit still: 1 = Several days Becoming easily annoyed or irritable: 1 = Several days Feeling afraid as if something awful might happen: 1 = Several days Total TIMI-7 score (0-4 normal; 5-9 mild; 10-14 moderate; 15-21 severe): 9 Source: Developed by Drs. Tone Vogt, Dinora Damon, Jovan Shaikh and colleagues, with an educational kayla from [employer]. Review of Systems Const Denies chills, Denies fatigue, Denies fever(s) and Denies headache(s) ENT Denies dysphagia, Denies dizziness, Denies otalgia, Denies headache(s), Denies neck pain, Denies odynophagia and Denies sore throat Card Reports chest pain (on and off - see HPI), Denies rapid heart rate, Denies irregular heart rhythm, Denies palpitations and Denies dyspnea Resp Denies chest congestion, Denies cough and Denies dyspnea GI Denies abdominal pain, Denies constipation, Denies dysphagia, Denies heartburn, Denies diarrhea, Denies nausea, Denies odynophagia and Denies vomiting Denies difficulty urinating, Denies dysuria, Reports nocturia and Reports urinary frequency Musc Denies back pain, Denies arthralgias, Denies neck pain, Reports numbness (over both lower extremities) and Reports tingling (over both lower extremities) Skin/Breast Details: (+) poorly-healing chronic ulcer on the plantar aspect of the right foot Denies rash Neuro Denies dizziness, Denies headache(s), Reports numbness (over both lower extremities), Reports tingling (over both lower extremities) and Denies paresthesias Endo Denies fatigue and Denies palpitations Physical exam (Primary Care) Vital Signs: Last Vital Signs Pulse 68 03/07/25 14:15 BP 112/68 03/07/25 14:15 Pulse Ox 96 03/07/25 14:15 Oxygen Delivery Method Room Air 03/07/25 14:15 BMI result Body Mass Index 39.7 Tobacco/Smoking Status: Tobacco use Status Tobacco use date assessed 03/07/25 03/07/25 14:26 Patient Tobacco Use Status Former Tobacco user 03/07/25 14:26 Tobacco use type Cigarette 03/07/25 14:26 e-Cigarette/Vaping Use Currently Using 03/07/25 14:26 PHQ-9: PHQ-9 Score PHQ-9: Total score 8 03/07/25 15:05 Depression Screening Interpretation: Positive Depression Screening Follow-up: Existing condition and In treatment Thrive Assessment: Date of Thrive Assessment Date Thrive assessed 03/07/25 03/07/25 14:26 Currently or been in a relationship where the following occur: No concerns reported Const General: no acute distress and alert HENMT Ears: TM's normal bilaterally and EAC's normal Throat: Yes posterior oropharynx normal and Yes tonsils normal (no TP congestion) Neck Neck: Yes no lymphadenopathy and Yes supple Thyroid: Thyroid normal Resp Auscultation: clear to auscultation bilaterally, no rales and no wheezes Cardio Rate: regular rate Rhythm: abnormal rhythm irregularly irregular Heart sounds: no murmurs GI Palpation (GI): Soft to palpation and nontender Auscultation: normal bowel sounds General: Yes no CVA tenderness Back/Spine/Pelvis Back: no CVA tenderness Thoracic/Lumbar Spine: No lumbar spinal tenderness Skin Rashes: no rashes Extrem Other: right foot is covered in bandages and is not examined General: Yes no clubbing, cyanosis or edema Results Reviewed Results Reviewed: Laboratory Tests 03/04/25 03/04/25 09:08 09:10 WBC 7.6 Hgb 15.1 D Hct 46.6 Plt Count 236 D Sodium 143 Potassium 4.7 Creatinine 0.93 Estimated GFR > 60 Fasting Glucose 173 H Hemoglobin A1c % 11.3 H Calcium 9.4 AST 34 ALT 33 Triglycerides 142 Cholesterol 139 LDL Cholesterol, Calc 84 HDL Cholesterol 27 L Vitamin B12 792 25-OH Vitamin D Total 27.3 L TSH 2.44 Ur Specific [place] 1.010 Urine Protein Negative Urine Glucose (UA) Negative Urine Blood Negative Urine Nitrite Negative Ur Leukocyte Esterase Negative Microalb/Creat Ratio 17.8 Coding Level of Care Code Est Pt Level 4 (85486) Diagnoses Type 2 diabetes mellitus with diabetic polyneuropathy, with long-term current use of insulin E11.42; Z79.4 Diabetes mellitus complication detail: with polyneuropathy Diabetes mellitus complication status: with neurologic complications Diabetes mellitus longterm insulin use: with longterm use Diabetes mellitus type: type 2 Diabetic autonomic neuropathy associated with type 2 diabetes mellitus E11.43 Diabetes mellitus complication detail: diabetic autonomic neuropathy Diabetes mellitus type: type 2 Ulcer of foot, chronic, right, with unspecified severity L97.519 Non-pressure ulcer stage: unspecified non-pressure ulcer stage Unsteady gait R26.81 Pure hypercholesterolemia E78.00 Chronic atrial fibrillation I48.20 Asthma-COPD overlap syndrome J44.9 Vitamin D deficiency E55.9 Insomnia, unspecified type G47.00 Insomnia type: unspecified Bipolar affective disorder, current episode mixed, current episode severity unspecified F31.60 Active/Remission status: currently active Current bipolar episode type: mixed Current episode severity: unspecified Obesity (BMI 30-39.9) E66.9 Additional Codes PHQ-9 - 49046 - PHQ-9 Billing: Yes ([id number]) Assessment & Plan Assessment & Plan (1) Diabetes mellitus: Code(s): E11.9 - Type 2 diabetes mellitus without complications Category: Medical Qualifiers: Diabetes mellitus complication detail: with polyneuropathy Diabetes mellitus complication status: with neurologic complications 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 Diabetes mellitus type: type 2 Qualified Code(s): E11.42 - Type 2 diabetes mellitus with diabetic polyneuropathy; Z79.4 - ferry terminal supervisor (current) use of insulin Plan: Patient states that his HgbA1c was somewhere between 9.0 to 9.5% on his labs done at [facility] a few months ago His HgbA1c is at 11.3% on his labs done a few days ago - goal is at least <7.0% Reinforce diabetic diet Continue Basaglar 42 units Q AM, Humalog Kwikpen 10 units TID with meals and Metformin ER 2000 mg Q HS Follow-up with endocrinology at [facility] as scheduled - as [facility] endocrinology is managing patient's diabetes, I will leave it up to them to make the appropriate changes/adjustments to his current medications We will try to obtain a copy of his office visit records from [facility] endocrinology for documentation (2) Diabetic neuropathy: Code(s): E11.40 - Type 2 diabetes mellitus with diabetic neuropathy, unspecified Category: Medical Qualifiers: Diabetes mellitus complication detail: diabetic autonomic neuropathy Diabetes mellitus type: type 2 Qualified Code(s): E11.43 - Type 2 diabetes mellitus with diabetic autonomic (poly)neuropathy Plan: Continue Pregabalin 200 mg BID (3) Chronic ulcer of right foot: Comment: on the ball of the foot Code(s): L97.519 - Non-pressure chronic ulcer of other part of right foot with unspecified severity Category: Medical Qualifiers: Non-pressure ulcer stage: unspecified non-pressure ulcer stage Qualified Code(s): L97.519 - Non-pressure chronic ulcer of other part of right foot with unspecified severity Plan: Right foot x-rays done back in December 2022 revealed (+) mild degenerative changes PIP and DIP joints and soft tissue ulceration along the plantar aspect of the great toe with NO underlying bony abnormality seen and NO periosteal thickening or elevation to suggest any osteomyelitis He has been following up with [facility] in [place] regularly for his right foot ulcer over the past couple of years and will continue to do so (4) Unsteady gait: Code(s): R26.81 - Unsteadiness on feet Category: Medical Plan: Have advised patient that his unsteady gait and poor balance are most likely related to his diabetic neuropathy Per request, we previously referred him to [facility] for evaluation for home physical therapy to help improve his gait and balance (5) Pure hypercholesterolemia: Code(s): E78.00 - Pure hypercholesterolemia, unspecified Category: Medical Plan: Results of his labs done a few days ago reviewed and discussed with patient Reinforced low cholesterol diet Continue Atorvastatin 20 mg QD Will have patient recheck his labs and fasting lipids in 3 months for follow up (6) Chronic atrial fibrillation: Code(s): I48.20 - Chronic atrial fibrillation, unspecified Category: Medical Plan: S/P pacemaker insertion in August 2021 Patient currently remains asymptomatic from a cardiac standpoint Continue Xarelto 20 mg Q PM for thromboembolism prophylaxis, Metoprolol ER 50 mg QD and Amiodarone 200 mg BID Follow up with cardiology and with EPS specialist in [place] as scheduled (7) Asthma-COPD overlap syndrome: Code(s): J44.9 - Chronic obstructive pulmonary disease, unspecified Category: Medical Plan: Continue Trelegy Ellipta 100-62.5-25 mcg 1 inhalation QD and Albuterol HFA 2 inhalations Q 6 hours PRN Follow up with pulmonary as scheduled (8) Vitamin D deficiency: Code(s): E55.9 - Vitamin D deficiency, unspecified Category: Medical Plan: Continue Vitamin D3 2000 units QD (9) Insomnia: Code(s): G47.00 - Insomnia, unspecified Category: Medical Qualifiers: Insomnia type: unspecified Qualified Code(s): G47.00 - Insomnia, unspecified Plan: Sleep hygiene reinforced He takes Clonazepam 1 mg Q HS 30 minutes before bedtime (10) Bipolar disorder: Code(s): F31.9 - Bipolar disorder, unspecified Category: Medical Qualifiers: Active/Remission status: currently active Current bipolar episode type: mixed Current episode severity: unspecified Qualified Code(s): F31.60 - Bipolar disorder, current episode mixed, unspecified Plan: Continue Vraylar 4.5 mg QD and Depakote ER 2000 mg QD Follow up with psychiatric nurse (LOOP SEWER) at [facility] in [place], [place] as scheduled Patient was also reportedly evaluated further by psychiatry up at the [facility] in [place] a few months ago - states that this was a second opinion with regards to his diagnoses of bipolar disorder as he feels that he was wrongfully diagnosed in the past (11) Obesity (BMI 30-39.9): Code(s): E66.9 - Obesity, unspecified Category: Medical Plan: Reinforced diet/exercise as tolerated/lose weight Plan Follow-up in 3 months Orders: Orders Comprehensive [place]. Panel Fast 3 Months E78.00 - Pure hypercholesterolemia, unspecified Lipid Panel 3 Months E78.00 - Pure hypercholesterolemia, unspecified Hemoglobin A1c 3 Months E11.9 - Type 2 diabetes mellitus without complications TSH reflex Free T4 3 Months E78.00 - Pure hypercholesterolemia, unspecified Vitamin B12 and Folate 3 Months E53.8 - Deficiency of other specified B group vitamins Complete Blood Count Auto Diff 3 Months D64.9 - Anemia, unspecified Microalbumin, Random (w Creat) 3 Months E11.9 - Type 2 diabetes mellitus without complications UA CC w/rflx Micro + Cult 3 Months R30.0 - Dysuria Vitamin D 25-OH Total 3 Months E55.9 - Vitamin D deficiency, unspecified
== END 2025-03-07 16:43 | disposition home or self-care (01) ==
LOC: HO.HMCH 14:03
PROVIDERS: PCP Internal Medicine; Visit Provider Internal Medicine
DX: E11.42 Type 2 diabetes mellitus with diabetic polyneuropathy (principal); Z79.4 Long term (current) use of insulin; E11.43 Type 2 diabetes mellitus with diabetic autonomic (poly)neuropathy; L97.519 Non-pressure chronic ulcer of other part of right foot with unspecified severity; I48.20 Chronic atrial fibrillation, unspecified; J44.9 Chronic obstructive pulmonary disease, unspecified; F31.60 Bipolar disorder, current episode mixed, unspecified; R26.81 Unsteadiness on feet; E78.00 Pure hypercholesterolemia, unspecified; E55.9 Vitamin D deficiency, unspecified; G47.00 Insomnia, unspecified; E66.9 Obesity, unspecified

== ENCOUNTER → 2025-03-07 14:02 | Outpatient (BNVA) | payer BC, SELFPAY | PROVIDERS: PCP Internal Medicine; Visit Provider Internal Medicine | DX: E11.43 Type 2 diabetes mellitus with diabetic autonomic (poly)neuropathy (principal); L97.519 Non-pressure chronic ulcer of other part of right foot with unspecified severity; R26.81 Unsteadiness on feet; E78.00 Pure hypercholesterolemia, unspecified; I48.20 Chronic atrial fibrillation, unspecified; J44.9 Chronic obstructive pulmonary disease, unspecified; E55.9 Vitamin D deficiency, unspecified; G47.00 Insomnia, unspecified; F31.60 Bipolar disorder, current episode mixed, unspecified; E66.9 Obesity, unspecified; Z68.39 Body mass index [BMI] 39.0-39.9, adult; Z79.4 Long term (current) use of insulin; Z79.84 Long term (current) use of oral hypoglycemic drugs; Z79.899 Other long term (current) drug therapy; Z13.31 Encounter for screening for depression; Z13.39 Encounter for screening examination for other mental health and behavioral disorders | CPT/HCPCS: 96127 ==

== ENCOUNTER → 2025-04-14 13:30 | Outpatient (BNV) | payer MEDICARE, BC, SELFPAY | PROVIDERS: PCP Nurse Practitioner Women's Health; Visit Provider Radiology Diagnostic Radiology | DX: M20.11 Hallux valgus (acquired), right foot (principal) | CPT/HCPCS: 73630 ==

== ENCOUNTER 2025-05-18 11:00 | Outpatient (RCR) | payer BC, MEDICARE, SELFPAY ==
--- NOTE | ~2025-05-18 | XR_ITS ---
EXAMINATION: XR FOOT, RIGHT CLINICAL INFORMATION: R/O OSTERO COMPARISON: December 16, 2022 TECHNIQUE: AP, lateral, and oblique views of the right foot. FINDINGS: There are mild degenerative changes with marginal sites involving the second, third, and fourth PIP joints. There is hallux valgus deformity with minute marginal osteophytes involving first MTP joint. There is suspected soft tissue ulceration in the region of the second and third web spaces of the plantar forefoot with overlying dressing. No definite erosive changes are identified. XR/XR foot RT min 3V IMPRESSION: Suspected soft tissue ulceration in the ball of foot, on the medial side. No definite bony erosive changes are identified. 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 Electronically signed by: Liborio Garcia MD 04/14/2025 01:49 PM EDT
== END 2025-05-18 16:31 | disposition home or self-care (01) ==
LOC: HO.WCC 11:00
PROVIDERS: PCP Nurse Practitioner Women's Health; Visit Provider Surgery Surgical Oncology
DX: E11.621 Type 2 diabetes mellitus with foot ulcer (principal); L97.512 Non-pressure chronic ulcer of other part of right foot with fat layer exposed; E11.42 Type 2 diabetes mellitus with diabetic polyneuropathy; M21.41 Flat foot [pes planus] (acquired), right foot; I10 Essential (primary) hypertension; F12.90 Cannabis use, unspecified, uncomplicated; N39.498 Other specified urinary incontinence; Z87.891 Personal history of nicotine dependence
CPT/HCPCS: 11042; 73630; 99212; 99214

== ENCOUNTER 2025-05-26 13:04 | Outpatient (AMB) | payer BC, SELFPAY ==
--- NOTE | 2025-05-26 13:09 | A.OFFVIS_ITS ---
Intake Visit Reasons: 6 mo fu DPN Allergies Sulfa (Sulfonamide Antibiotics) Allergy (Severe, Verified 05/26/25 13:14) Rash bupropion Adverse Reaction (Severe, Verified 05/26/25 13:14) manic olanzapine Adverse Reaction (Severe, Verified 05/26/25 13:14) weight gain Medication List - Last Reconciled 05/26/25 by Divine Almaguer CNP atorvastatin 20 mg PO BEDTIME cholecalciferol (vitamin D3) 50 mcg PO DAILY 90 days clonazepam 1 mg PO DAILY divalproex ER (Depakote ER) 2,000 mg PO DAILY bthihlezpxf-okbnascee-ofakrxil 100-62.5-25 mcg (Trelegy Ellipta) 1 inh inhalation DAILY insulin glargine (Basaglar KwikPen U-100 Insulin) 46 units subcut QAM insulin lispro (Humalog KwikPen (U-100) Insulin) 15 units subcut TID lumateperone (Caplyta) 42 mg PO DAILY metformin 2,000 mg PO BEDTIME metoprolol succinate ER 50 mg PO DAILY pregabalin 200 mg PO BID rivaroxaban (Xarelto) 20 mg PO QPM HPI Comments Details: 59-year-old man with history of bipolar disorder, drug-induced parkinsonism with parkinsonian tremor that improved 95% after switching from Vraylat to Caplyta, and uncontrolled diabetes since 1999 with some neuropathic symptoms since 2008. He was having some more numbness and tingling in feet the last few months. He was having some burning, itching-type pain in both feet and occasional sharp, shooting-type pain. Pain did not disrupt sleep. Sleep was okay, and he sometimes overslept, missing morning appointment. Balance was off at times. He was walking with walker, no falls. He was working with OT 2x/week. Blood sugar was not well- controlled. [facility] Medical History Vitamin D deficiency Chronic ulcer of right foot Diabetic neuropathy Bipolar disorder Chronic atrial fibrillation Asthma-COPD overlap syndrome Obesity (BMI 30-39.9) Insomnia Pure hypercholesterolemia Diabetes mellitus Pacemaker Surgical History Status post biventricular cardiac pacemaker insertion (~08/2021) Family History Other Mesothelioma Social History Housing: House Patient Tobacco Use Status: Former Tobacco user Tobacco use type: Cigarette e-Cigarette/Vaping Use: Currently Using Second Hand Smoke Exposure: No service: No Current occupational status: retired Current occupational exposures/hazards: No Cognitive needs: No Hearing needs: No Vision needs: No Review of Systems Const Denies chills, Denies daytime sleepiness, Reports difficulty sleeping, Denies fatigue, Denies fever(s), Denies frequent falls, Denies headache(s), Denies increased appetite, Denies poor appetite, Denies snoring, Denies weakness, Denies weight gain and Denies weight loss Eyes Denies loss of vision ENT Denies vertigo, Denies dizziness, Denies headache(s) and Denies neck pain Card Denies chest pain at rest, Denies chest pain with activity, Denies syncope, Denies leg edema, Denies palpitations, Denies dyspnea and Denies dyspnea on exertion Resp Denies cough, Denies dyspnea, Denies dyspnea on exertion and Denies snoring GI Denies abdominal pain, Denies constipation, Denies heartburn, Denies diarrhea and Denies nausea Denies urinary frequency, Denies urinary incontinence and Denies urinary urgency Musc Denies abnormal gait, Denies back pain, Denies myalgias, Denies arthralgias, Denies neck pain, Denies numbness and Denies tingling Neuro Denies abnormal gait, Denies vertigo, Denies dizziness, Denies syncope, Denies frequent falls, Denies headache(s), Denies lack of coordination, Denies loss of vision, Denies memory loss, Denies numbness, Denies Other visual disturbances, Denies restless legs, Denies seizure-like activity, Denies tingling, Denies paresthesias, Reports tremor(s) and Denies weakness Psych Reports anxiety, Reports depression, Denies auditory hallucinations, Denies memory loss and Denies visual hallucinations Endo Denies fatigue and Denies palpitations Physical Exam Const Other: General Appearance:? normal, in no acute distress. Heart:? S1, S2 normal, no murmurs. Lungs:? clear anteriorly and posteriorly. Musculoskeletal:? normal. Extremities:? no edema. Psych:? alert, oriented, cognitive function intact, cooperative with exam. Tearful at times. Neuro Other: Abnormal Neurological Findings:?Reduced facial expression. Mild resting tremor of the left thumb and minimal intermittent resting tremor in the fingers of the right hand.?Slight increase in tone with cogwheeling in the left upper extremity. Absent reflexes in the legs. Blunting of vibration below mid tarsal level and pin prick blunting below ankles bilaterally. Walking with walker. Tearful at times. Mental Status: alert and oriented X 3. Normal attention, orientation, memory, and affect. Cranial Nerves: Pupils are equal, round, and reactive to light. External ocular muscles are intact. Visual spencer are full, no ptosis. Face is symmetrical, no facial weakness or droop. Facial sensations are normal. Tongue protrudes in midline. Palate elevates symmetrically. Shoulder shrugging is normal Motor Examination: Normal muscle tone, bulk and strength. No atrophy or fasciculations. No drift of the extended upper extremities. DTR 1+ in UE, absent knee and ankle reflexes. Plantars are flexor. Sensory Exam: As above. Coordination: No ataxia. No titubation. Gait Exam: With walker. Cerebellar Signs: Gnztny-zp-bveg is okay. Extrapyramidal System: As above. Speech: Normal. Results Reviewed Results Reviewed: Laboratory Tests 03/04/25 09:10 Hemoglobin A1c % 11.3 H 02/10/24 NCV/EMG ALL Severe sensory and motor axonal neuropathy diffusely in the upper and lower extremities, worse in the lower extremities. EMG in the C5-T1 and L4-S1 innervated muscle is consistent with distal neuropathic changes. Assessment & Plan Assessment & Plan (1) Diabetic peripheral neuropathy: Code(s): E11.42 - Type 2 diabetes mellitus with diabetic polyneuropathy Category: Medical Plan: Continue pregabalin 200mg 1 capsule twice a day. Control blood sugar. Stay physically active, use walker. 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
--- OUTSIDE RECORDS SUMMARY | 2025-05-26 16:27 | XMS_ITS | Encounter Summary ---
Author Organization [employer] Address [address] [facility] [address] 7t [place] [address] Care Team Providers Care Wood Chopper Name Role Phone Irvin Zapata MD Unavailable [phone] Raj Sebastian Unavailable Mallorie Rosado Unavailable [phone] Jaqui Bowman MD Unavailable [phone] Jcarlos Archer MD Unavailable [phone] Salinas Albert MD Unavailable [phone] Rain Del Castillo MD Unavailable [phone] Provider, Not In System Primary Care Provider Un available Encounter Details Date Type Department Care Team (Late st Contact Info) Description 05/24/2025 Orders Only [facility] Information Management [address] [id number] Provider, Not In System Social History Tobacco [...] Date/Time Associated Diagnosis Comments TRANSTHORACIC ECHO (TTE) COMPLETE Routine 05/06/2025 7:52 AM EDT documented in this encounter Results * Transthoracic echo (TTE) complete (05/06/2025 7:52 AM EDT) us Not In System Provider CV ECHO PROCEDURES Edited Result - Final documented in this encounter Visit Diagnoses Not on filedocumented in this encounter Additional Health Concerns Assessment Noted Time PHQ-9 Depression Total Score: 9 01/26/20 10:16 AM EDT documented as of this encounter Care Teams Wood Chopper Relationship Specialty Start Date End Date Provider, Not In System PCP - General Family Medicine 03/14/25 Irvin Zapata MD [address] [place] [address] Gastroenterology 04/28/24 Raj Sebastian [address] [place] [address] 107 Podiatry 04/28/24 Mallorie Rosado [address] [place] [address] Cardiology 04/28/24 Jaqui Bowman MD [address] [place] [address] Endocrinology 04/28/24 Jcarlos Archer MD [address] [place] [address] Pulmonary Disease 04/28/24 Salinas Albert MD [address] [place] [address] FAX (413[place], [place] [address] Urology 04/28/24 Rain Del Castillo MD [address] [place] [address], [address] [place] [address] Neurology 04/28/24 Jeremy Oconnor Psychiatrist 04/28/24 Vasu Angulo Psychologist 04/28/24 documented as of this encounter
--- OUTSIDE RECORDS SUMMARY | 2025-05-26 16:27 | XMS_ITS | Encounter Summary ---
Author Organization [employer] Address [address] [facility] 7t [place] [address] Care Team Providers Care Clinical Pharmacy Specialist Name Role Phone Sharon Quijano Primary Care Provider [phone] Irvin Zapata MD Unavailable [phone] Raj Sebastian Unavailable Mallorie Rosado Unavailable [phone] Jaqui Bowman MD Unavailable [phone] Jcarlos Archer MD Unavailable Salinas Albert MD Unavailable [phone] Rain Del Castillo MD Unavailable Phil Voss MD Primary Care Provider Sharon Quijano Primary Care Provider [phone] Provider, Not In System Primary Care Provider Un available Encounter Details Date Type Department Care Team (Late st Contact Info) Description 10/13/2024 Telephone [facility] [address] [facility] [address] [place] [address] Sharon Quijano FNP [address] [place] [address] Social History Tobacco Use Types Packs/Day Years [...] - 10/13/2024 9:58 AM EDT Leona from [facility] is calling to ask if sharon would sign medical orders if needed for patient, patient was reffered to them by the wound center but just wanted to give an FYI to pcp incaseof need later on [phone] documented in this encounter Plan of Treatment Not on file documented as of this encounter Visit Diagnoses Not on filedocumented in this encounter Additional Health Concerns Assessment Noted Time PHQ-9 Depression Total Score: 9 01/26/20 10:16 AM EDT documented as of this encounter Care Teams Clinical Pharmacy Specialist Relationship Specialty Start Date End Date Sharon Quijano FNP [address] [place] [address] PCP - General Family Medicine 10/09/22 11/14/24 Phil V[address] [place] [address] PCP - General Internal Medicine 11/15/24 12/29/24 Sharon Quijano FNP [address] [place] [address] PCP - General Family Medicine 12/30/24 03/13/25 Provider, Not In System PCP - General Family Medicine 03/14/25 Irvin Zapata MD 10 [place] [address] Gastroenterology 04/28/24 Raj Sebastian [address] [place], [place] 107 Podiatry 04/28/[address] [place] [address] Cardiology 04/28/24 Jaqui Bowman MD [address] [address] Endocrinology 04/28/24 Jcarlos Archer MD [address] [place] [address] Pulmonary Disease 04/28/24 Salinas Albert MD [address] [place] [address] FAX (413[place], [place] [address] Urology 04/28/24 Rain Del Castillo MD [address] [place] [address] Neurology 04/28/24 Jeremy Oconnor Psychiatrist 04/28/24 Vasu Angulo Psychologist 04/28/24 documented as of this encounter
--- OUTSIDE RECORDS SUMMARY | 2025-05-26 16:27 | XMS_ITS | Clinical Summary ---
Author Organization [employer] Address [address] [facility] 7t [place] [address] Care Team Providers Care Slate Splitter Name Role Phone Irvin Zapata MD Unavailable [phone] Raj Sebastian Unavailable Mallorie Rosado Unavailable [phone] Jaqui Bowman MD Unavailable [phone] Jcarlos Archer MD Unavailable Salinas Albert MD Unavailable [phone] Rain Del Castillo MD Unavailable [phone] Provider, Not In System Primary Care Provider Un available Allergies Active Allergy Reactions Criticality Noted Date Comments Aripiprazole 10/23/2022 Other reaction(s): Other (see comments) Bupropion Other Medium 10/09/2022 Anger, agitation, anxiety, insomnia Olanzapine 10/23/2022 Olanzapine-Samidorphan Other 01/07/2023 Other reaction(s): Other (see comments) Sulfa Antibiotics Rash,Hives Low 01/24/2017 Cariprazine Other Medium 09/01/2023 Hand tremor Medications metFORMIN XR (Glucophage-XR) 500 MG 24 hr tablet daily. 2 Active albuterol 108 (90 Base) MCG/ACT inhaler 2 Active Continuous Blood Gluc Sensor (FreeStyle Jenifer [address]) [facility] 2 Active Lantus SoloStar 100 UNIT/ML pen 2 Active HumaLOG KWIKPEN 100 UNIT/ML injection 2 Active BD Pen Needle Kelsi U/F 32G X [address] [facility] 05/27/20 2 2 Active Xarelto 20 MG tablet 2 Active Fluticasone-Umeclid in-Vilant (Trelegy Ellipta) 100-62.5-25 MCG/ACT aerosol powder Inhale 1 puff in the morning. 3 Active divalproex (Depakote ER) 500 MG 24 hr tablet Take 1,000 mg by mouth 2 times daily. 3 Active clonazePAM (KlonoPIN) 1 MG tablet 2 Active benztropine (Cogentin) 0.5 MG tablet Take 0.5 mg by mouth 2 times daily. Active Caplyta 42 MG capsule Take 42 mg by mouth at bedtime. 4 Active metoprolol succinate XL (Toprol-XL) 50 MG 24 hr tabletIndications:E ssential hypertension TAKE (1) TABLET DAILY IN THE MORNING. 90 tablet 3 4 Active atorvastatin (Lipitor) 20 MG tabletIndications:M ixed hyperlipidemia Take 1 tablet (20 mg) by mouth at bedtime. 90 tablet 3 5 Active pregabalin (Lyrica) 200 MG capsule Take 1 capsule by mouth 2 times daily. 5 Active Incontinence Supply Disposable (Depend Underwear X-Large) miscIndications:Typ e 2 diabetes mellitus with diabetic polyneuropathy, with long-term current use of insulin ([facility]),Benign prostatic hyperplasia (BPH) with urinary urge incontinence 1 each 4 times daily. 120 each 2 5 Active predniSONE (Deltasone) 10 MG tablet TAKE 4 TABS BY MOUTH DAILY X 2 DAYS 3 TABS DAILY FOR 2 DAYS THEN 2 DAYS DAILY FOR 2 DAYS THEN 1 TAB DAILY FOR 2 DAYS THEN STOP 5 Active Active Problems Problem Noted Date Diagnosed Date Benign prostatic hyperplasia (BPH) with urinary urge incontinence 10/27/2024 Age-related incipient cataract of both eyes 10/03 Erectile dysfunction due to diseases classified elsewhere 09/25/2022 Neuropathic ulcer of right foot ([facility]) 2022 Iron deficiency anemia secon mikey to inadequate dietary iron intake 09/25/2022 Alcoholism in remission ([facility]) 07/05/2022 Overview (10/09/2022): History of psychotic episode in setting of heavy alcohol use. Patient is now abstinent. Essential hypertension 07/05/2022 Assessment & Plan (10/13/2023 12:04 PM EDT): BP controlled. Continue current medication. Assessment & Plan (06/16/2023 8:36 AM EST): Decrease metoprolol succinate to 50 mg daily. Will recheck BP and symptoms at next follow-up. Morbid obesity ([facility]) 07/05/2022 Overview (09/01/2023): Obesity contributing to diabetes, hypertension, HLD, LEYLA. Assessment & Plan (09/01/2023 10:03 AM EST): Body mass index is 38.77 kg/m . Hypertrophic cardiomyopathy ([facility]) 10/30/2021 Overview (10/09/2022): Followed by [facility]. Type 2 diabetes mellitus wit h hyperglycemia, with long-term current use of insulin 10/30/2021 Overview (09/01/2023): Followed by Jaqui Bowman MD. Assessment & Plan (09/01/2023 10:06 AM EST): Lab Results Component Value Date HGBA1C 11.2 (H) 10/09/2022 BG today 163. Repeat labs with next routine blood draw. Complete heart block ([facility]) 07/03/2021 Overview (09/25/2022): Last Assessment & Plan: [...] he is not using Bipolar 1 disorder ([facility]) 09/21/2020 Overview (10/13/2023): Currently managed by psychiatry. Assessment & Plan (10/13/2023 12:02 PM EDT): Stable mood and tremor improving with change from Vraylar to Caplyta. Continue to follow with psychiatry. Diabetic gastroparesis 05/23/2020 Overview (09/25/2022): Last Assessment & Plan: He's made a lot of changes to his diet and is seeing improvements in his symptoms. Better glycemic control will help, too, and he sees Dr Bowman for this. Asthma-COPD overlap syndrome ([facility]) 0 Overview (09/25/2022): Last Assessment & Plan: Therefore, 55-year-old former smoker with asthma and COPD complains of frequent shortness of breath and cough. It appears he has had a cough on and off for several months now but this more recent worsening he reports is for a couple of months - perhaps less, because he was feeling well when he saw his lower in supervisor on June 04. He is observed to be coughing while the director medical surgical is taking his vitals but I did [...] agrees with that recommendation. Paroxysmal atrial fibrillation (CMS/HCC) 019 Assessment & Plan (10/30/2022 8:20 PM EDT): Has upcoming appointment with Kate Bob MD. Mixed hyperlipidemia 05/28/2017 Assessment & Plan (10/13/2023 12:06 PM EDT): LDL Cholesterol, Calculated (MG/DL) Date Value 10/09/2022 102 Continue current medication. Type 2 diabetes mellitus wit h complication, with snf current use of insulin pump 05/28/2017 Overview (10/09/2022): Followed by Dr. Jaqui Bowman. Generalized anxiety disorder 08/25/2001 Resolved Problems Problem Noted Date Diagnosed Date Resolved Date History of alcoholism (CMS/HCC) 09/25/2022 10/09/2022 Overview (09/25/2022): sober since 08/2017, attends AA. MJ helps him not drink. Also h/o cocaine (intranasal, smoked) - last used 2013 - and psychedelics. Type 2 diabetes mellitus with foot ulcer 09/25/2022 04/28/2024 Bipolar affective disorder, currently manic, mild ([facility]) 07/05/2022 09/25/2022 Acute kidney injury 01/18/2021 09/01/19 24 Overview (09/25/2022): Last Assessment & Plan: Baseline creatinine of 0.9. Creatinine today 1.5. Possibly related to septic picture. We will give IV fluids and hold his enalapril. We will also hold Metformin and his sulfonylurea. We will follow renal function. Acute post-traumatic stress disorder 09/25/2002 09/01/2023 Encounters Date Type Department Care Team Description 05/24/2025 Orders Only [facility] Information Management [address] [place] [address] Provider, Not In System 03/14/2025 Patient Outreach [address] [address] Denise Velez, RN Error (VOID this visit) from Last 3 Months Immunizations Immunization Administration Dates Next Due Influenza Injectable Quadriv alant Preservative Free IIV4 MDCK 04/24/2023 Influenza injectable quadriv alent IIV4 with preservative 05/09/2021 Influenza injectable quadriv alent preservative free 05/22/2022,05/22/2020,06/10/2018,05/28 Influenza, IIV3, injectable 06/04/2019 Influenza, Injectable, MDCK, preservative free 04/14/2024 Moderna Covid-19 Vaccine 12+ 10/23/2021, 04/11/2021,11/07/2020,10/10 Novel [id number] 06/24/2009 Pfizer Covid-19 Vaccine 12+ Bivalent 05/22/2022 [...] is your housing situation today? I have najaylen bowen 06/16/[address] you [...] the past 12 months, has t he [employer], [employer], oil or water [employer] threatened to shut off services in your [...] 71 10/27/2024 9:46 AM EDT Temperature 36.4 C (97.6 F) 10/27/2024 9:46 AM EDT Respiratory Rate - - Oxygen Saturation 95% [...] 1964 FIT 1964 FOBT 1964 Sigmoidoscopy 1964 Disability Screening 1964 Alcohol/Substance Use Screening 1976 Hepatitis A Vaccines (1 of 2 - Risk 2-dose series) 11/13/1983 SDOH Screening 06/16/2024 06/16/2023 Depression Monitoring 07/27/2024 01/26/2024, 024 Lung Cancer Screening 09/22/2024 09/22/2023, 024 Diabetes: Urine Protein Screening 09/24/2024 09/24/2023, 10/17/2022, 10/30/2021 Diabetes: Hemoglobin A1C 10/20/2024 024, 07/22/2024, 04/26/2024, Additional history exists Hepatitis B Vaccines (1 of 3 - Risk 3-dose series) 2024 RSV Patients and Patients Aged 60 years or older (1 - Risk 60-74 years 1-dose series) 2024 Diabetes: Foot Exam 01/25/2025 01/26/2024, 01/26/2024, 01/26/2024, Additional history exists Influenza Vaccine (#1) 2025 , 04/24/2023, 05/22/2022, Additional history exists Lipid Panel 07/22/2025 07/22/2024, 05/0 04/2024, 09/24/2023, Additional history exists Eye Exam 08/25/2025 08/25/2023 Tobacco Screening 10/27/2025 10/27/2024 Colonoscopy 11/13/2026 11/14/2023 Colorectal Cancer Screening 11/13/2026 DTaP/Tdap/Td Vaccines (2 - Td or Tdap) 09/01/2033 09/01/2023 HIV Screening Completed 10/30/2021 Pneumococcal Vaccine: 50+ [...] patient's age to complete this topic Meningococcal B Vaccine Aged Out No l onger eligible based on patient's age to complete [...] (TTE) COMPLETE Routine 05/06/2025 7:52 AM EDT HEMOGLOBIN A1C Routine 07/22/2024 1:40 PM EST LIPID PANEL, STANDARD Routine 07/22/2024 1:38 PM EST COLONOSCOPY Routine 11/14/2023 HEPATITIS C AB W/REFL [...] Health Maintenance Results * Transthoracic echo (TTE) complete (05/06/2025 [...] ed Result - Final * Colonoscopy (11/14/2023) Colonoscopy Normal Normal Comment:POLYPS REMOVED- GI R ECOMMENDATION 3 YEARS Result [facility] Historical Provider HEALTH MAINTENANCE Final Result * Hepatitis C Antibody with Reflex to HCV, RNA, Quantitative, Real-Time PCR (10/13/2023 11:50 AM EDT) Pathologist [facility] Hepatitis C Antibody NON-REACT SHAHAB NON-REACT SHAHAB [employer] Comment: HCV antibody was non-reactive. There is no laboratory evidence of HCV infection. In most cases, no further action is required. However, if recent HCV exposure is suspected, a test for HCV RNA (test code 22545) is suggested. For additional information please refer to http://education.[employer]faq/KKK12t2 (This link is being provided for informational/ educational purposes only.) Blood Venous blood specimen / Unknown 10/13/2023 11:50 AM EDT 10/13/2023 11:51 AM EDT Narrative [facility] - 10/14/2023 12:31 PM EDT FASTING:NO FASTING: NO Result [facility] Sharon Quijano [facility] BLO[facility] ORDERABLES Final Result [facility] [address], [place] [address] [facility] [address] [place] [address] * Albumin/Creatinine Ration, Timed Urine (09/24/2023) Urine Urine specimen obtained by clean catch procedure / Unknown Result [facility] Sharon Quijano [facility] URINE ORDERABLES Final Result * Lung Cancer Screning (09/22/2023) [facility] Lung CT LUNGRADS 2 LUNGRADS 1, LUNGRADS 2 Comment:see report Anatomical Region Laterality Modality Other Result [facility] Historical Provider HEALTH MAINTENANCE Final Result * Diabetes Eye Exam (08/25/2023 10:35 AM EST) us Not In System Provider HEALTH MAINTENANCE Edited Result - Final * HIV AB-AG W/RFLX TO HIV QNT (10/30/2021 4:49 PM EDT) RESULT 4TH GEN HIV AB-AG NEGATIVE (NEG) [facility] 10/30/2021 4:49 PM EDT us Historical Provider HISTORICAL/NON ORDERABLE LABS Final Result [facility] [address] from Last 3 Months or Most Recently Relevant to Health Maintenance [place] [address] [place] [address] [address] [place] [address] [place] [address] [address] [place] [address] Care Teams Slate Splitter Relationship Specialty Start Date End Date Provider, Not In System PCP - General Family Medicine 03/14/25 Irvin Zapata MD [address] [place] [address] Gastroenterology 04/28/24 Raj Sebastian [address] [place] [address] 107 Podiatry 04/28/24 Mallorie Rosado [address] [place] [address] Cardiology 04/28/24 Jaqui Bowman MD 22 [facility], [address] [place] [address] Endocrinology 04/28/24 Jcarlos Archer MD [address] [place] [address] Pulmonary Disease 04/28/24 Salinas Albert MD [address] [place] [address] FAX ([address] [place] [address] Urology 04/28/24 Rain Del Castillo MD [address] [place] [address], [address] [place] [address] Neurology 04/28/24 Jeremy Oconnor Psychiatrist 04/28/24 Vasu Angulo Psychologist 04/28/24
--- OUTSIDE RECORDS SUMMARY | 2025-05-26 16:27 | XMS_ITS | Encounter Summary ---
Author Organization [employer] Address [address] [facility] 7t [place] [address] Care Team Providers Care Field Marketing Team Leader Name Role Phone Sharon Quijano Primary Care Provider [phone] Irvin Zapata MD Unavailable [phone] Raj Sebastian Unavailable Mallorie Rosado Unavailable [phone] Jaqui Bowman MD Unavailable [phone] Jcarlos Archer MD Unavailable Salinas Albert MD Unavailable Rain Del Castillo MD Unavailable Phil Voss MD Primary Care Provider Sharon Quijano Primary Care Provider Provider, Not In System Primary Care Provider Un available Encounter Details Date Type Department Care Team (Late st Contact Info) Description 11/24/2023 Abstract [facility] [address] [place] [address] Sharon Quijano FNP [address] [place] [address] Social History Tobacco Use Types Packs/Day Years [...] the past 12 months, has t he [employer], gas, oil or water [employer] threatened to shut off services in your [...] Procedure Name Priority Date/Time Associated Diagnosis Comments COLONOSCOPY Routine 11/14/2023 documented in this encounter Results * Colonoscopy (11/14/2023) Colonoscopy Normal Normal Comment:POLYPS REMOVED- GI R ECOMMENDATION 3 YEARS us Historical Provider HEALTH MAINTENANCE Final Result documented in this encounter Visit Diagnoses Not on filedocumented in this encounter Care Teams Field Marketing Team Leader Relationship Specialty Start Date End Date Sharon Quijano FNP [address] [place] [address] PCP - General Family Medicine 10/09/22 11/14/24 Phil Voss MD [address] [facility] [address] [place] [address] PCP - General Internal Medicine 11/15/24 12/29/24 Sharon Quijano FNP [address] [place] [address] PCP - General Family Medicine 12/30/24 03/13/25 Provider, Not In System PCP - General Family Medicine 03/14/25 Irvin Zapata MD 10 [place] [address] Gastroenterology 04/28/24 Raj Sebastian [address] [place], [place] 107 Podiatry 04/28/24 Mallorie Rosado [address] [place] [address] Cardiology 04/28/24 Jaqui Bowman MD [address] [place] [address], [address] [place] [address] Endocrinology 04/28/24 Jcarlos Archer MD [address] [place] [address] Pulmonary Disease 04/28/24 Salinas Albert MD [address] [place] [address] FAX (413) [place] [address] Urology 04/28/24 Rain Del Castillo MD [address] [place] [address], [address] [place] [address] Neurology 04/28/24 Jeremy Oconnor Psychiatrist 04/28/24 Vasu Angulo Psychologist 04/28/24 documented as of this encounter
--- OUTSIDE RECORDS SUMMARY | 2025-05-26 16:27 | XMS_ITS | Encounter Summary ---
Author Organization [employer] Address 75 [facility] 7t [place] [address] Care Team Providers Care Features Editor Name Role Phone Sharon Quijano Primary Care Provider [phone] Irvin Zapata MD Unavailable [phone] Raj Sebastian Unavailable Mallorie Rosado Unavailable Jaqui Bowman MD Unavailable [phone] Jcarlos Archer MD Unavailable [phone] Salinas Albert MD Unavailable Rain Del Castillo MD Unavailable [phone] Phil Voss MD Primary Care Provider [phone] CaliSharon bryantP Primary Care Provider [phone] Provider, Not In System Primary Care Provider Un available Encounter Details Date Type Department Care Team (Late st Contact Info) Description 07/30/2024 Orders Only [facility] Information Management [address] [place] [address] Provider, Not In System Social History Tobacco [...] PM EST) us Not In System Provider [facility] Edited Result - Final * [...] Time PHQ-9 Depression Total Score: 9 01/26/20 24 10:16 AM EDT documented as of this encounter Care Teams Features Editor Relationship Specialty Start Date End Date Sharon Quijano FNP [address] [place] [address] PCP - General Family Medicine 10/09/22 11/14/24 Phil Voss MD [address] [place] [address] PCP - General Internal Medicine 11/15/24 12/29/24 Sharon Quijano FNP [address] [place] [address] PCP - General Family Medicine 12/30/24 03/13/25 Provider, Not In System PCP - General Family Medicine 03/14/25 Irvin Zapata MD 10 [place] [address] Gastroenterology 04/28/24 Raj Sebastian [address] [place] [address] 107 Podiatry 04/28/24 Mallorie Rosado [address] [place] [address] Cardiology 04/28/24 Jaqui Bowman MD 22 [facility], [address] [place] [address] Endocrinology 04/28/24 Jcarlos Archer MD [address] [place] [address] [address] [place] [address] Pulmonary Disease 04/28/24 Salinas Albert MD [address] [place] [address] FAX (413) [place] [address] Urology 04/28/24 Rain Del Castillo MD [address] [place] [address], [address] [place] [address] Neurology 04/28/24 Jeremy Oconnor Psychiatrist 04/28/24 Vasu Angulo Psychologist 04/28/24 documented as of this encounter
--- OUTSIDE RECORDS SUMMARY | 2025-05-26 16:27 | XMS_ITS | Clinical Summary ---
Author Organization [facility] Address [address] [place] [address] Phone Care Team Providers Care Community Administrator Name Role Phone Phil Voss MD Primary Care Provider Social History Tobacco Use Types Packs/Day Years Used Date Smoking Tobacco: Never Assessed Sex and Gender Information Value Date Recorded Sex Assigned at Male 05/17/2025 3:39 PM EDT Legal Sex Male 11:58 AM EDT Gender Identity Male 05/17/2025 3:39 PM EDT Sexual Orientation Bisexual 05/17/2025 3: 39 PM EDT Plan of Treatment Upcoming Encounters Date Type Department Care Team (Late st Contact Info) Description 06/01/2025 12:45 PM EDT Clinical Support [facility] [address] [place] [address] Health Maintenance Due Date Last Done Comments Colorectal Cancer Screening: Colonoscopy 1965 DTaP,Tdap,and Td Vaccines (1 - Tdap) 11/13/1983 Pneumococcal Vaccine: 50+ Ye ars (1 of 1 - PCV) 2014 Zoster Vaccines (1 of 2) 2014 Depression Screening 08/04/2024 COVID-19 Vaccine (1 - 2023-2 5 season) 2025 Influenza Vaccine (#1) 2025 Cholesterol Screening (Lipid Panel) 05/16/2025 HIV Screening 05/16/2025 Hepatitis C Screening 05/16/2025 Medicare Annual Wellness Visit 05/16/2025 Social Influencers of Health Screening 05/16/2025 RSV Immunization Adult Patie nts (1 - 1-dose 75+ series) 11/13/2039 HIB Vaccines Aged Out No longer eligi ble based on patient's age to complete this topic HPV Vaccines Aged Out No longer eligi ble based on patient's age to complete this topic Hepatitis A Vaccines Aged Out No long er eligible based on patient's age to complete this topic Hepatitis B Vaccines Aged Out No long er eligible based on patient's age to complete this topic IPV Vaccines Aged Out No longer eligi ble based on patient's age to complete this topic MMR Vaccines Aged Out No longer eligi ble based on patient's age to complete this topic Meningococcal ACWY Vaccine Aged Out N o longer eligible based on patient's age to complete this topic Meningococcal B Vaccine Aged Out No l onger eligible based on patient's age to complete this topic RSV Immunization Patients Un quynh 20 months Aged Out No longer eligible b ased on patient's age to complete this topic Varicella Vaccines Aged Out No longer eligible based on patient's age to complete this topic Insurance MEDICARE Care Teams Community Administrator Relationship Specialty Start Date End Date Phil Voss MD [address] [place] [address] [address] [place] PCP - General Internal Medicine 05/16/25
--- OUTSIDE RECORDS SUMMARY | 2025-05-26 16:27 | XMS_ITS | Encounter Summary ---
Author Organization [employer] Address 75 [facility] 7t [place] [address] Care Team Providers Care Drop Wire Aliner Name Role Phone Sharon Quijano Primary Care Provider +[phone]- [phone] Irvin Zapata MD Unavailable [phone] Raj Sebastian Unavailable Mallorie Rosado Unavailable Jaqui Bowman MD Unavailable [phone] Jcarols Archer MD Unavailable [phone] Salinas Albert MD Unavailable Rain Del Castillo MD Unavailable Phil Voss MD Primary Care Provider Sharon Quijano Primary Care Provider Provider, Not In System Primary Care Provider Un available Encounter Details Date Type Department Care Team (Late st Contact Info) Description 04/27/[address] [facility] [address] [place] [address] Sharon Quijano FNP [address] [place], [place] [id number] Social History Tobacco Use Types Packs/Day Years [...] Miscellaneous Notes * Telephone Encounter - Kenya Bordener - 04/27/2024 1:13 PM EDT Returning a missed call. Confirmed his appointment for tomorrow. documented in this encounter Plan of Treatment Not on file documented as of this encounter Visit Diagnoses Not on filedocumented in this encounter Additional Health Concerns Assessment Noted Time PHQ-9 Depression Total Score: 9 01/26/20 10:16 AM EDT documented as of this encounter Care Teams Drop Wire Aliner Relationship Specialty Start Date End Date Sharon Quijano FNP [address] [place] [address] PCP - General Family Medicine 10/09/22 11/14/24 Phil Voss MD [address] [place] [address] [address] [place] [address] PCP - General Internal Medicine 11/15/24 12/29/24 Sharon Quijano FNP [address] [place] [address] PCP - General Family Medicine 12/30/24 03/13/25 Provider, Not In System PCP - General Family Medicine 03/14/25 Irvin Zapata MD 10 [place] [address] Gastroenterology 04/28/24 Raj Sebastian [address] [place] [address] Podiatry 04/28/[address] [place] [address] Cardiology 04/28/24 Jaqui Bowman MD 22 [facility], 1st [place] [address] Endocrinology 04/28/24 Jcarlos Archer MD [address] [place] [address] Pulmonary Disease 04/28/24 Salinas Albert MD [address] [place] [address] FAX (413) [place] [address] Urology 04/28/24 Rain Del Castillo MD [address] [place] [address], [address] [place] [address] Neurology 04/28/24 Jeremy Oconnor Psychiatrist 04/28/24 Vasu Angulo Psychologist 04/28/24 documented as of this encounter
--- OUTSIDE RECORDS SUMMARY | 2025-05-26 16:27 | XMS_ITS | Encounter Summary ---
Author Organization [employer] Address 75 [facility] 7t [place] [address] Care Team Providers Care Telephoto Installer Name Role Phone Sharon Quijano Primary Care Provider [phone]- [phone] Irvin Zapata MD Unavailable [phone] Raj Sebastian Unavailable Mallorie Rosado Unavailable [phone] Jaqui Bowman MD Unavailable [phone] Jcarlos Archer MD Unavailable [phone] Salinas Albert MD Unavailable [phone] Rain Del Castillo MD Unavailable [phone] Phil Voss MD Primary Care Provider [phone] CaliSharon bryantP Primary Care Provider [phone] Provider, Not In System Primary Care Provider Un available Encounter Details Date Type Department Care Team (Late st Contact Info) Description 01/29/2024 Orders Only [facility] [address] [place] [address] Provider, Not In System Social History Tobacco [...] documented as of this encounter Care Teams Telephoto Installer Relationship Specialty Start Date End Date Sharon Quijano FNP [address] [place] [address] PCP - General Family Medicine 10/09/22 11/14/24 Phil Voss MD [address] [place] [address] Drive [address] [place] [address] PCP - General Internal Medicine 11/15/24 12/29/24 Sharon Quijano FNP [address] [place] [address] PCP - General Family Medicine 12/30/24 03/13/25 Provider, Not In System PCP - General Family Medicine 03/14/25 Irvin Zapata MD 10 [place] [address] Gastroenterology 04/28/24 Raj Sebastian [address] [place], [place] 107 Podiatry 04/28/24 Mallorie Rosado [address] [place] [address] Cardiology 04/28/24 Jaqui Bowman MD 22 [facility], 1st [place] [address] Endocrinology 04/28/24 Jcarlos Archer MD [address] [place] [address] 2nd [place] [address] Pulmonary Disease 04/28/24 Salinas Albert MD [address] [place] [address] FAX [phone]) [place] [address] Urology 04/28/24 Rain Del Castillo MD [address] [place] [address], [address] [place] [address] Neurology 04/28/24 Jeremy Oconnor Psychiatrist 04/28/24 Vasu Angulo Psychologist 04/28/24 documented as of this encounter
--- OUTSIDE RECORDS SUMMARY | 2025-05-26 16:27 | XMS_ITS | Encounter Summary ---
Author Organization [employer] Address 75 [facility] 7t [place] [address] Care Team Providers Care Wet Machine Operator Name Role Phone Sharon Quijano Primary Care Provider [phone]- [phone] Irvin Zapata MD Unavailable [phone] Raj Sebastian Unavailable Mallorie Rosado Unavailable Jaqui Bowman MD Unavailable [phone] Jcarlos Archer MD Unavailable [phone] Salinas Albert MD Unavailable [phone] Rain Del Castillo MD Unavailable [phone] Phil Voss MD Primary Care Provider [phone] CaliSharon bryantP Primary Care Provider [phone]- [phone] Provider, Not In System Primary Care Provider Un available Encounter Details Date Type Department Care Team (Late st Contact Info) Description 09/06/2024 Orders Only [facility] [address] [place] [address] Provider, Not In System Social History Tobacco [...] documented as of this encounter Care Teams Wet Machine Operator Relationship Specialty Start Date End Date Sharon Quijano FNP 102 [place] [address] PCP - General Family Medicine 10/09/22 11/14/24 Phil Voss MD [address] [facility] [address] [place] [address] PCP - General Internal Medicine 11/15/24 12/29/24 Sharon Quijano FNP [address] [place] [address] PCP - General Family Medicine 12/30/24 03/13/25 Provider, Not In System PCP - General Family Medicine 03/14/25 Irvin Zapata MD 10 [place] [address] Gastroenterology 04/28/24 Raj Sebastian 81 [place], [place] [address] Podiatry 04/28/24 Mallorie Rosado [address] [place] [address] Cardiology 04/28/24 Jaqui Bowman MD 22 [facility], 1st [place] [address] Endocrinology 04/28/24 Jcarlos Archer MD [address] [place] [address] Pulmonary Disease 04/28/24 Salinas Albert MD [address] [place] [address] FAX [phone] [place] [address] Urology 04/28/24 Rain Del Castillo MD [address] [place] [address], [address] [place] [address] Neurology 04/28/24 Jeremy Oconnor Psychiatrist 04/28/24 Vasu Angulo Psychologist 04/28/24 documented as of this encounter
--- OUTSIDE RECORDS SUMMARY | 2025-05-26 16:27 | XMS_ITS | Encounter Summary ---
Author Organization [employer] Address 75 [facility] 7t [place] [address] Care Team Providers Care Nurses Supervisor Name Role Phone Sharon Quijaon Primary Care Provider [phone]- [phone] Irvin Zapata MD Unavailable Raj Sebastian Unavailable Mallorie Rosado Unavailable Jaqui Bowman MD Unavailable [phone] Jcarlos Archer MD Unavailable Salinas Albert MD Unavailable [phone] Rain Del Castillo MD Unavailable Phil Voss MD Primary Care Provider [phone] CaliSharon bryantP Primary Care Provider [phone] Provider, Not In System Primary Care Provider Un available Encounter Details Date Type Department Care Team (Late st Contact Info) Description 11/18/2023 Orders Only [facility] [address] [place] [address] Provider, Not In System Social History Tobacco [...] on filedocumented in this encounter Care Teams Nurses Supervisor Relationship Specialty Start Date End Date Sharon Quijano FNP [address] [place] [address] PCP - General Family Medicine 10/09/22 11/14/24 Phil Voss MD [address] [place] [address] Drive [address] [place] [address] PCP - General Internal Medicine 11/15/24 12/29/24 Sharon Quijano FNP [address] [place] [address] PCP - General Family Medicine 12/30/24 03/13/25 Provider, Not In System PCP - General Family Medicine 03/14/25 Irvin Zapata MD [address] [place] [address] Gastroenterology 04/28/24 Raj Sebastian [address] [place] [address] Podiatry 04/28/24 Mallorie Rosado [address] [place] [address] Cardiology 04/28/24 Jaqui Bowman MD [address] [place] [address] Endocrinology 04/28/24 Jcarlos Archer MD [address] [place] [address] Pulmonary Disease 04/28/24 Salinas Albert MD [address] [place] [address] FAX [phone] [place] [address] Urology 04/28/24 Rain Del Castillo MD [address] [place] [address], [address] [place] [address] Neurology 04/28/24 Jeremy Oconnor Psychiatrist 04/28/24 Vasu Angulo Psychologist 04/28/24 documented as of this encounter
--- OUTSIDE RECORDS SUMMARY | 2025-05-26 16:27 | XMS_ITS | Encounter Summary ---
Author Organization [employer] Address 75 [facility] 7t [place] [address] Care Team Providers Care Commercial Photographer Name Role Phone Sharon Quijano Primary Care Provider [phone] Irvin Zapata MD Unavailable [phone] Raj Sebastian Unavailable Mallorie Rosado Unavailable [phone] Jaqui Bowman MD Unavailable Jcarlos Archer MD Unavailable Salinas Albert MD Unavailable Rain Del Castillo MD Unavailable Phil Voss MD Primary Care Provider Sharon Quijano Primary Care Provider [phone]- [phone] Provider, Not In System Primary Care Provider Un available Encounter Details Date Type Department Care Team (Late st Contact Info) Description 12/08/2023 Telephone [facility] 119 [facility] [address] [place] [address] Sharon Quijano FNP [address] [place] [address] Social History Tobacco Use Types Packs/Day Years [...] 12/08/2023 12:29 PM EDT Please fax referral #[id number] documented in this encounter Plan of Treatment Not on file documented as of this encounter Visit Diagnoses Not on filedocumented in this encounter Care Teams Commercial Photographer Relationship Specialty Start Date End Date Sharon Quijano FNP [address] [place] [address] PCP - General Family Medicine 10/09/22 11/14/24 Phil Voss MD [address] [place] [address] [place] [address] PCP - General Internal Medicine 11/15/24 12/29/24 Sharon Quijano FNP [address] [place] [address] PCP - General Family Medicine 12/30/24 03/13/25 Provider, Not In System PCP - General Family Medicine 03/14/25 Irvin Zapata MD [address] [place] [address] Gastroenterology 04/28/24 Raj Sebastian [address] [place] [address] Podiatry 04/28/24 Mallorie Rosado [address] [place] [address] Cardiology 04/28/24 Jaqui Bowman MD [address] [place] [address], 1st [place] [address] Endocrinology 04/28/24 Jcarlos Archer MD 10 [facility] 2nd [place] [address] Pulmonary Disease 04/28/24 Salinas Albert MD 48 [facility] FAX [phone] [place] [address] Urology 04/28/24 Rain Del Castillo MD [address] [place] [address], [address] [place] [address] Neurology 04/28/24 Jeremy Oconnor Psychiatrist 04/28/24 Vasu Angulo Psychologist 04/28/24 documented as of this encounter
--- OUTSIDE RECORDS SUMMARY | 2025-05-26 16:27 | XMS_ITS | Encounter Summary ---
Author Organization [employer] Address 75 [facility] 7t [place] [address] Care Team Providers Care Baker Operator Automatic Name Role Phone Sharon Quijano Primary Care Provider [phone]- [phone] Irvin Zapata MD Unavailable [phone] Raj Sebastian Unavailable Mallorie Rosado Unavailable [phone] Jaqui Bowman MD Unavailable [phone] Jcarlos Archer MD Unavailable [phone] Salinas Albert MD Unavailable [phone] Rain Del Castillo MD Unavailable [phone] Phil Voss MD Primary Care Provider [phone] CaliSharon bryantP Primary Care Provider [phone] Provider, Not In System Primary Care Provider Un available Encounter Details Date Type Department Care Team (Late st Contact Info) Description 12/19/2023 Orders Only [facility] [address] [place] [address] Provider, Not In System Social History Tobacco [...] on filedocumented in this encounter Care Teams Baker Operator Automatic Relationship Specialty Start Date End Date Sharon Quijano FNP [address] [place] [address] PCP - General Family Medicine 10/09/22 11/14/24 Phil Voss MD [address] [place] [address] Drive [address] [place] [address] PCP - General Internal Medicine 11/15/24 12/29/24 Sharon Quijano FNP [address] [place] [address] PCP - General Family Medicine 12/30/24 03/13/25 Provider, Not In System PCP - General Family Medicine 03/14/25 Irvin Zapata MD [address] [place] [address] Gastroenterology 04/28/24 Raj Sebastian [address] [place] [address] Podiatry 04/28/24 Mallorie Rosado [address] [place] [address] Cardiology 04/28/24 Jaqui Bowman MD [address] [place] [address] Endocrinology 04/28/24 Jcarlos Archer MD [address] [place] [address] Pulmonary Disease 04/28/24 Salinas Albert MD [address] [place] [address] FAX ([phone] [place] [address] Urology 04/28/24 Rain Del Castillo MD [address] [place] [address], [address] [place] [address] Neurology 04/28/24 Jeremy Oconnor Psychiatrist 04/28/24 Vasu Angulo Psychologist 04/28/24 documented as of this encounter
--- OUTSIDE RECORDS SUMMARY | 2025-05-26 16:27 | XMS_ITS | Encounter Summary ---
Author Organization [employer] Address 75 [facility] 7t [place] [address] Care Team Providers Care Field Service Representative Name Role Phone Irvin Zapata MD Unavailable [phone] Raj Sebastian Unavailable Mallorie Rosado Unavailable [phone] Jaqui Bowman MD Unavailable [phone] Jcarlos Archer MD Unavailable Salinas Albert MD Unavailable [phone] Rain Del Castillo MD Unavailable [phone] Sharon Quijano EXTRUDER OPERATOR VERTICAL Primary Care Provider [phone]- [phone] Provider, Not In System Primary Care Provider Un available Encounter Details Date Type Department Care Team (Late st Contact Info) Description 12/30/[address] [address] Sharon Quijano [address] [address] Social History Tobacco Use Types Packs/Day Years [...] encounter Miscellaneous Notes * Telephone Encounter - Di Weaver - 12/30/2024 3:05 PM EDT Mildred called on vmail at 216 pm from [facility] returning a call to nursing. She said her number so fast I had to listen twice and I got [phone] * Telephone Encounter - Di Weaver - 12/30/2024 1:58 PM EDT [facility] and she did not leave a number documented in this encounter Plan of Treatment Not on file documented as of this encounter Visit Diagnoses Not on filedocumented in this encounter Additional Health Concerns Assessment Noted Time PHQ-9 Depression Total Score: 9 01/26/20 24 10:16 AM EDT documented as of this encounter Care Teams Field Service Representative Relationship Specialty Start Date End Date Sharon Quijano FNP [address] [place] [address] PCP - General Family Medicine 12/30/24 03/13/25 Provider, Not In System PCP - General Family Medicine 03/14/25 Irvin Zapata MD 10 [place] [address] Gastroenterology 04/28/24 Raj Sebastian 81 [place], [place] 107 Podiatry 04/28/24 Mallorie Rosado [address] [place] [address] Cardiology 04/28/24 Jaqui Bowman MD [facility], 1st [place] [address] Endocrinology 04/28/24 Jcarlos Archer MD [address] [place] [address] 2nd [place] [address] Pulmonary Disease 04/28/24 Salinas Albert MD [address] [place] [address] FAX (413) [place] [address] Urology 04/28/24 Rain Del Castillo MD [address] [place] [address], [address] [place] [address] Neurology 04/28/24 Jeremy Oconnor Psychiatrist 04/28/24 Vasu Angulo Psychologist 04/28/24 documented as of this encounter
--- OUTSIDE RECORDS SUMMARY | 2025-05-26 16:27 | XMS_ITS | Encounter Summary ---
Author Organization [employer] Address 75 [facility] 7t [place] [address] Care Team Providers Care Immersion Metalcleaner Name Role Phone Sharon Quijano Primary Care Provider [phone] Irvin Zapata MD Unavailable [phone] Raj Sebastian Unavailable Mallorie Rosado Unavailable Jaqui Bowman MD Unavailable [phone] Jcarlos Archer MD Unavailable [phone] Salinas Albert MD Unavailable Rain Del Castillo MD Unavailable [phone] Phil Voss MD Primary Care Provider Sharon Quijano Primary Care Provider [phone]- [phone] Provider, Not In System Primary Care Provider Un available Encounter Details Date Type Department Care Team (Late st Contact Info) Description 02/18/2024 Orders Only [facility] [address] [place] [address] Sharon Quijano FNP [address] [place], [place] [id number] Type 2 diabetes mellitus with hyperglycemia, with long-term current use of insulin ([facility]) Social History Tobacco Use Types Packs/Day Years [...] hyperglycemia, with long-term current use of insulin ([facility]) Expected: 02/18/2024 (Approximate), Expires: 02/17/2025 documented as of this encounter Visit Diagnoses Diagnosis Type 2 diabetes mellitus with hyperglycemia, with long-term current use of insulin ([facility]) documented in this encounter Additional Health Concerns Assessment Noted Time PHQ-9 Depression Total Score: 9 01/26/20 10:16 AM EDT documented as of this encounter Care Teams Immersion Metalcleaner Relationship Specialty Start Date End Date Sharon Quijano FNP [address] [place] [address] PCP - General Family Medicine 10/09/22 11/14/24 Phil Voss MD [address] [place] [address] Drive [address] [place] [address] PCP - General Internal Medicine 11/15/24 12/29/24 Sharon Quijano FNP [address] [place] [address] PCP - General Family Medicine 12/30/24 03/13/25 Provider, Not In System PCP - General Family Medicine 03/14/25 Irvin Zapata MD 10 [place] [address] Gastroenterology 04/28/24 Raj Sebastian 81 [place], [place] [address] Podiatry 04/28/24 Mallorie Rosado [address] [place] [address] Cardiology 04/28/24 Jaqui Bowman MD 22 [facility], 1st [place] [address] Endocrinology 04/28/24 Jcarlos Archer MD [address] [place] [address] Pulmonary Disease 04/28/24 Salinas Albert MD [address] [place] [address] FAX (413) [place] [address] Urology 04/28/24 Rain Del Castillo MD [address] [place] [address], [address] [place] [address] Neurology 04/28/24 Jeremy Oconnor Psychiatrist 04/28/24 Vasu Angulo Psychologist 04/28/24 documented as of this encounter
--- OUTSIDE RECORDS SUMMARY | 2025-05-26 16:27 | XMS_ITS | Encounter Summary ---
Author Organization [email or web address] Address 75 [facility] 7t [place] [address] Care Team Providers Care Circuit Board Inspector Name Role Phone Sharon Quijano Primary Care Provider [phone] Irvin Zapata MD Unavailable [phone] Raj Sebastian Unavailable Mallorie Rosado Unavailable Jaqui Bowman MD Unavailable [phone] Jcarlos Archer MD Unavailable Salinas Albert MD Unavailable [phone] Rain Del Castillo MD Unavailable [phone] Phil Voss MD Primary Care Provider Sharon Quijano Primary Care Provider Provider, Not In System Primary Care Provider Un available Encounter Details Date Type Department Care Team (Late st Contact Info) Description 10/09/2022 Abstract [facility] 102 [place] [address] Sharon Quijano FNP 102 [place] [address] Social History Tobacco Use Types Packs/Day Years [...] on filedocumented in this encounter Care Teams Circuit Board Inspector Relationship Specialty Start Date End Date Sharon Quijano FNP 102 [place] [address] PCP - General Family Medicine 10/09/22 11/14/24 Phil Voss MD [address] [place] [address] PCP - General Internal Medicine 11/15/24 12/29/24 Sharon Quijano FNP 102 [place] [address] PCP - General Family Medicine 12/30/24 03/13/25 Provider, Not In System PCP - General Family Medicine 03/14/25 Irvin Zapata MD 10 [place] [address] Gastroenterology 04/28/24 Raj Sebastian [address] [place] [address] Podiatry 04/28/24 Mallorie Rosado [address] [place] [address] Cardiology 04/28/24 Jaqui Bowman MD 22 [facility], 1st [place] [address] Endocrinology 04/28/24 Jcarlos Archer MD [address] [place] [address] 2nd [place] [address] Pulmonary Disease 04/28/24 Salinas Albert MD [address] [place] [address] FAX (413) [place] [address] Urology 04/28/24 Rain Del Castillo MD [address] [place] [address], [address] [place] [address] Neurology 04/28/24 Jeremy Oconnor Psychiatrist 04/28/24 Vasu Angulo Psychologist 04/28/24 documented as of this encounter
== END 2025-05-26 13:28 | disposition home or self-care (01) ==
LOC: HO.HSM 13:05
PROVIDERS: PCP Internal Medicine; Visit Provider Registered Nurse
DX: E11.42 Type 2 diabetes mellitus with diabetic polyneuropathy (principal); G25.1 Drug-induced tremor; G21.19 Other drug induced secondary parkinsonism
CPT/HCPCS: 99214

== ENCOUNTER 2025-06-13 10:29 | Outpatient (REF) | payer BC, MEDICARE, SELFPAY ==
--- OUTSIDE RECORDS SUMMARY | 2025-06-08 14:15 | XMS_ITS | Encounter Summary ---
Author Organization [facility] Address [address] [place] [address] Care Team Providers Care Sale Professional Digital Marketing Name Role Phone Phil Voss MD Primary Care Provider Reason for Visit * Reason Comments Wound Care Encounter Details Date Type Department Care Team (Latest Contact Info) Description 06/08/2025 2:15 PM EST Office Visit [facility] [address] [place] [address] Shyam Verdin MD [address] [place] [address] Type 2 diabetes mellitus with foot ulcer (CODE) ([facility] V24, [facility] V28) (Primary Dx); Non-pressure chronic ulcer of other part of right foot with fat layer exposed ([facility] V24, [facility] V28); Type 2 diabetes mellitus with polyneuropathy ([facility] V24, [facility] V28) Social History Tobacco Use Types Packs/Day Years Used Date Smoking Tobacco: Former Cigarettes 44.9 S tarted: 1980 Smokeless Tobacco: Never Alcohol Use Standard Drinks/Week Comments Yes 0 (1 standard drink = 0.6 oz pur e alcohol) Sex and Gender Information Value Date Recorded Sex Assigned at Male 05/17/2025 3:39 PM EDT Legal Sex Male 11:58 AM EDT Gender Identity Male 05/17/2025 3:39 PM EDT Sexual Orientation Bisexual 05/17/2025 3: 39 PM EDT Travel History Travel Start Travel End [place] 06/02/2025 06/05/2025 documented as of this encounter Last Filed Vital Signs Vital Sign Reading Time Taken Comments Blood Pressure 147/65 06/08/2025 2:15 PM EST Pulse 69 06/08/2025 2:15 PM EST Temperature 36 C (96.8 F) 06/08/2025 2:15 PM EST Respiratory Rate 16 06/08/2025 2:15 PM EST Oxygen Saturation 96% 06/08/2025 2:15 PM EST Inhaled Oxygen Concentration - - Weight - - Height - - Body Mass Index - - documented in this encounter Progress Notes * Ignacia Hyde RN - 06/08/2025 2:15 PM EST PROVIDER ORDERS Go to ER if you are presenting with fever, chills, increased redness, pain, swelling, warmth aroundwound area and/or foul smelling odor. If you have any questions or concerns, please contact the [facility] [place] at . Follow up(s)/ Referrals: Others: MRI- Appointment on 06/10 at 1:15P -Arterial u/s- Will order and they will contact you with appointment Mcc: Home care: [facility] Additional Orders: Increase protein in your diet to help promote wound healing, Maintain good blood sugar control Lidocaine Orders: Apply Lidocaine 5% Topical Ointment prior to debridements at Wound Care appointments Edema Control: (If your compression wrap(s) feel to tight, please elevate your leg(s) about heart level. If your wrap(s) are becoming painful and/or you loose sensation of toes/ are having toe discoloration (a change from your baseline), please remove / unwrap compression and notify [facility] at . ) N/A Offloading: Wear Diabetic shoes with inserts -Orthofelt to periwound Negative Pressure Wound Therapy: (If wound vac is off/non functioning for more than 2 hours, please remove vac dressing, apply a wetto dry dressing and notify your home care agency) N/A Cellular/Tissue Based Products: N/A Bathing / Showering / Hygiene: May shower with protection but DO NOT get wound dressing(s) wet. Protect dressing(s) with water repellant cover ( for example- large plastic bag or cast bag) and then may take shower. Non-wound Condition/ Other Skin Care: N/A Wound Location(s): Wound #1 (Right plantar foot): Cleanser: Cleanse with Normal Saline Periwound: Apply Zinc Oxide to jacques wound Topical: N/A Primary dressing: Hydrofera Blue- cut to fit to wound bed (if classic type, moisten with saline andsqueeze out excess prior to apply to wound bed) Secondary dressinx4 woven gauze (non-sterile), Orthofelt Secure with: 4 hypafix tape Compression Therapy: Compression Stocking Dressing Change Frequency: Three times each week * Shyam Verdin MD - 06/08/2025 2:15 PM ESTAssociated Order(s): Debridement Diabetic Ulcer Right;Plantar Post-Procedure Diagnose(s): Type 2 diabetes mellitus with polyneuropathy ([facility] V24, [facility] V28); Non-pressure chronic ulcer of other 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 [facility] [place] [address] Office Visit Visit Date: 06/08/2025 Patient Name: Pb Waterman Date of : 1965 PCP: Phil Voss MD HPI: Pb Waterman is a 59 y.o. male who presents to the to the wound care center for consultation for ongoing diabetic foot wound to the right foot plantar aspect. Patient was referred over by podiatry. Patient has been seeing [place] [facility] but has recently moved to the [facility] area. Patient states the wound has been ongoing for up to 10 to 15 years. Patient has tried total contact cast and multiple topical treatments. Patient does state he recently had an x-ray but does notrecall if he has had an MRI. Past medical history includes type 2 diabetes currently on insulin. Polyneuropathy, chronic ulcer to the right foot, hypercholesterolemia, chronic atrial fibrillation curr ently on Pelto, asthma-COPD overlap syndrome, vitamin D deficiency, insomnia, bipolar affective disorder, reflux, pacemaker, and obesity. Patient states he was recently fitted for diabetic inserts and plans to pick them up this week. Patient states recent total contact cast because of medial ankle blisters so they stopped using them. Patient has used multiple topical treatments to the wound. Patient believes most recent treatment wasIodosorb. Patient denies any recent fever or chills. Patient most recent A1c was 11.3 and patient has not been followed by endocrinology through [facility] diabetes center. Patient understands importance of tighter glycemic control. 06/08/25: Venus returns to the wound care for follow-up and treatment of his diabetic foot ulcer located on the plantar aspect of his right foot. He was recently fitted for new diabetic inserts and has been wearing them for the last 2 days. He has been compliant with Hydrofera Blue to the wound beds and reports that he has a follow-up appointment with a content director to his interested in doing surgery to remove some bone which seems to be partially causing the recurrent ulcer. No fevers or chills this week. Assessment and Plan: Diabetic foot ulcer complicated with poorly controlled diabetes and suboptimal offloading. He does have new diabetic inserts which will be helpful. He would also benefit from a total contact cast unfortunately we do not have the supplies for this at this time. He also reports that he has tried a total contact cast without significant improvement. No evidence of infection today. Awaiting results of MRI. Continue with Hydrofera Blue. Follow-up next week. 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 He was counseled regarding my impressions, instructions for management, and the importance of compliance with treatment. Follow up in about 1 week (around 06/15/2025) for Follow up with Rogelio Armas PA-C. >>>>>>>>>>>>>>>>>>>>>>>>>>>>>>>>>>>>>>>>>>>>>>>>>>> Vital Signs: Visit Vitals BP (!) 147/65 Pulse 69 Temp 36 ??C (96.8 ??F) (Temporal) Resp 16 Review of Systems: Review of Systems Constitutional: Negative for chills and fever. PHYSICAL EXAM Physical Exam Vitals and nursing note reviewed. Constitutional: Appearance: Normal appearance. He is not ill-appearing. Pulmonary: Effort: Pulmonary effort is normal. Skin: Comments: Right plantar foot ulcer is circular with thickened and discolored callus surrounding thewound bed. Wound bed is pink with no tunneling or undermining. Periwound is without erythema. WOUND ASSESSMENT If photograph of wound not visible on this note, please check under Media tab. Wound Diabetic Ulcer 06/01/25 Right;Plantar (Active) Date First Assessed: 06/01/25 Primary Wound Type: Diabetic Ulcer Present on Admission: Yes Wound Approximate Age at First Assessment (Weeks): 24 weeks Hand Hygiene Completed: Yes Diabetic Ulcer Grading: Grade 1 Wound Location Orientation: Right... Assessments 06/01/2025 1:29 PM 06/08/2025 2:18 PM Wound Image Wound Bed Tissue Assessment Granulation -- Jacques-Wound Assessment Callused -- Shape Irregular -- Wound Length (cm) 1.2 cm 1.2 cm Wound Width (cm) 1.7 cm 1.6 cm Wound Surface Area (cm^2) 1.6 cm^2 1.51 cm^2 Wound Depth (cm) 0.4 cm 0.4 cm Wound Volume (cm^3) 0.427 cm^3 0.402 cm^3 Wound Healing % -- 6 Drainage Description Serosanguineous -- Drainage Amount Moderate -- Treatments Cleansed -- Dressing Other (Comment);Gauze -- Dressing Status Removed -- Wound Bed Granulation (%) 100 % -- Wound Bed Epithelialization (%) 0 % -- Wound Bed Slough (%) 0 % -- Wound Bed Eschar (%) 0 % -- Tunneling 0 cm -- Undermining 0 cm -- Edges Attached edges;Well-defined edges -- Active Orders Date Order Priority Status Authorizing Provider 06/08/25 1459 Debridement Routine Active Shyam Verdin MD Inactive Orders Date Order Priority Status Authorizing Provider 06/01/25 1406 Debridement Diabetic Ulcer Right;Plantar Routine Completed ISMA Islas Pertinent Labs: No results found for: ALB , WBC , PREALBUMIN , HEMOGLOBIN A1C , POCT GLUCOSE Procedure Note: Debridement Diabetic Ulcer Right;Plantar Performed by: Shyam Verdin MD Authorized by: Shyam Verdin MD Associated wounds: Wound Diabetic Ulcer 06/01/25 Right;Plantar Consent: Consent obtained: Verbal Consent given by: Patient Risks discussed: Yes Time out: Immediately prior to the procedure a time out was called Debridement Details: Performed by: Physician Type: surgical Level: subcutaneous tissue Pain control: Lidocaine 4% Pain control administration: topical anesthesia Severity of Tissue Pre Debridement: Fat layer exposed Severity of Tissue Post Debridement: Fat layer exposed Time taken: 06/08/2025 2:18 PM Length (cm): 1.2 Width (cm): 1.6 Depth (cm): 0.4 Area (cm^2): 1.51 Time taken: 06/08/2025 2:19 PM Length (cm): 1.3 Width (cm): 1.8 Depth (cm): 0.4 Percent Debrided (%): 100 Surface Area (cm^2): 2.34 Area Debrided (cm^2): 2.34 Volume (cm^3): 0.94 Tissue and other material debrided: dermis, epidermis and subcutaneous tissue Devitalized tissue debrided: slough Instrument: Curette Amount of bleeding: small Hemostasis obtained with: Pressure Procedural pain: 0 Post-procedural pain: 0 Response to treatment: Procedure was tolerated well PROVIDER ORDERS Patient Instructions PROVIDER ORDERS Go to ER if you are presenting with fever, chills, increased redness, pain, swelling, warmth aroundwound area and/or foul smelling odor. If you have any questions or concerns, please contact the [facility] at . Follow up(s)/ Referrals: Others: MRI- Appointment on 06/10 at 1:15P -Arterial u/s- Will order and they will contact you with appointment Mcc: Home care: [facility] Additional Orders: Increase protein in your diet to help promote wound healing, Maintain good blood sugar control Lidocaine Orders: Apply Lidocaine 5% Topical Ointment prior to debridements at Wound Care appointments Edema Control: (If your compression wrap(s) feel to tight, please elevate your leg(s) about heart level. If your wrap(s) are becoming painful and/or you loose sensation of toes/ are having toe discoloration (a change from your baseline), please remove / unwrap compression and notify [facility] [place] at . ) N/A Offloading: Wear Diabetic shoes with inserts -Orthofelt to periwound Negative Pressure Wound Therapy: (If wound vac is off/non functioning for more than 2 hours, please remove vac dressing, apply a wetto dry dressing and notify your home care agency) N/A Cellular/Tissue Based Products: N/A Bathing / Showering / Hygiene: May shower with protection but DO NOT get wound dressing(s) wet. Protect dressing(s) with water repellant cover ( for example- large plastic bag or cast bag) and then may take shower. Non-wound Condition/ Other Skin Care: N/A Wound Location(s): Wound #1 (Right plantar foot): Cleanser: Cleanse with Normal Saline Periwound: Apply Zinc Oxide to jacques wound Topical: N/A Primary dressing: Hydrofera Blue- cut to fit to wound bed (if classic type, moisten with saline andsqueeze out excess prior to apply to wound bed) Secondary dressinx4 woven gauze (non-sterile), Orthofelt Secure with: 4 hypafix tape Compression Therapy: Compression Stocking Dressing Change Frequency: Three times each week 06/08/2025 3:00 PM EST Shyam Verdin MD Julia Will RN - 06/08/2025 2:15 PM EST Discharge Patient directed to check out at help desk coordinator and collect visit summary with wound care directions and book follow up as directed. Dressings applied: Wound #1 (Right plantar foot): Cleanser:Normal Saline Periwound: Zinc Oxide to jacques wound Primary dressing: Hydrofera Blue- moistened w/ NS Secondary dressinx4 woven gauze, Orthofelt Secure with: 4 hypafix tape Compression Therapy: Compression Stocking Dressing technique was demonstrated and explained. Patient questions answered. Pt discharge from wound care center without issue or incidence. documented in this encounter Plan of Treatment Upcoming Encounters Date Type Department Care Team (Late st Contact Info) Description 06/15/2025 2:45 PM EST Clinical Support [facility] [address] [place] [address] 08/16/2025 12:00 PM EST Ancillary Procedure [facility] [address] [place] [address] [place] [id number] documented as of this encounter Goals Goal Patient Goal Type Associated Problems Recent Progress Patient-Stated? Author Decrease Wound Volume by X% by date (in notes) Care Plan Impaired Tissue On track( 2:43 PM EST) No Ignacia Hyde RN Patient and Caregiver Understand Wound Care Education Care Plan Impaired Tissue On track( 2:43 PM EST) Ignacia Arzate RN Wound volume breakdown reduced by X% by week 4 Care Plan Impaired Tissue No Ignacia Hyde RN Wound volume breakdown reduced by X% by week 8 Care Plan Impaired Tissue No Ignacia Hyde RN Wound volume breakdown reduced by X% by week 12 Care Plan Impaired Tissue No Ignacia Hyde RN Quit using tobacco (cigarettes, smokeless, etc) Care Plan Education needed on impact of smoking on wound No Ignacia Hyde RN Reduce tobacco use (cigarettes, smokeless, etc) Care Plan Education needed on impact of smoking on wound No Ignacia Hyde RN Decrease Wound Volume by X% by date (in notes) Care Plan Education needed on impact of smoking on wound No Ignacia Hyde RN Patient and Caregiver Understand Wound Care Education Care Plan Education needed related to ulceration/compr omised skin integrity. No Ignacia Hyde RN documented as of this encounter Procedures Procedure Name Priority Date/Time Associated Diagnosis Comments DEBRIDEMENT Routine 06/08/2025 2:15 PM EST Type 2 diabetes mellitus with foot ulcer (CODE) ([facility] V24, [facility] V28) Non-pressure chronic ulcer of other part of right foot with fat layer exposed ([facility] V24, [facility] V28) Type 2 diabetes mellitus with polyneuropathy ([facility] V24, [facility] V28) documented in this encounter Results * Debridement Diabetic Ulcer Right;Plantar (06/08/2025 2:15 PM EST) Shyam Stanton MD - 06/08/2025 2:15 PM EST Shyam Verdin MD 06/08/2025 3:00 PM Debridement Diabetic Ulcer Right;Plantar Performed by: Shyam Verdin MD Authorized by: Shyam Verdin MD Associated wounds: Wound Diabetic Ulcer 06/01/25 Right;Plantar Consent: Consent obtained: Verbal Consent given by: Patient Risks discussed: Yes Time out: Immediately prior to the procedure a time out was called Debridement Details: Performed by: Physician Type: surgical Level: subcutaneous tissue Pain control: Lidocaine 4% Pain control administration: topical anesthesia Severity of Tissue Pre Debridement: Fat layer exposed Severity of Tissue Post Debridement: Fat layer exposed Time taken: 06/08/2025 2:18 PM Length (cm): 1.2 Width (cm): 1.6 Depth (cm): 0.4 Area (cm^2): 1.51 Time taken: 06/08/2025 2:19 PM Length (cm): 1.3 Width (cm): 1.8 Depth (cm): 0.4 Percent Debrided (%): 100 Surface Area (cm^2): 2.34 Area Debrided (cm^2): 2.34 Volume (cm^3): 0.94 Tissue and other material debrided: dermis, epidermis and subcutaneous tissue Devitalized tissue debrided: slough Instrument: Curette Amount of bleeding: small Hemostasis obtained with: Pressure Procedural pain: 0 Post-procedural pain: 0 Response to treatment: Procedure was tolerated well us Shyam Verdin MD IN CLINIC/BEDSIDE ORDERAB LES Final Result documented in this encounter Visit Diagnoses Diagnosis Type 2 diabetes mellitus with foot ulcer (CODE) ([facility] V24, [facility] V28)- Primary Non-pressure chronic ulcer of other part of right foot with fat layer exposed ([facility] V24, [facility] V28) Type 2 diabetes mellitus with polyneuropathy ([facility] V24, [facility] V28) Type II or unspecified type diabetes mellitus with neurological manifestations, not stated as uncontrolled documented in this encounter Additional Health Concerns Active Problems Noted Date Diagnosed Date Impaired Tissue 06/01/2025 Education needed on impact of smoking on wound 1 Education needed related to ulceration/compromised skin integrity. 06/01/2025 Assessment Noted Time PHQ-9 Depression Total Score: 0 06/01/20 1:21 PM EDT documented as of this encounter Care Teams Sale Professional Digital Marketing Relationship Specialty Start Date End Date Phil Voss MD [address] [place] [address] [address] [place], [place] PCP - General Internal Medicine 05/16/25 documented as of this encounter
[2025-06-13 11:11] LABS: MANUAL DIFF FLAG NO
[2025-06-13 11:21] LABS: Ammonia 34 umol/L (13-55)
[2025-06-13 11:34] LABS: Hematocrit 41.1 % (42.0-52.0); Hemoglobin 13.8 g/dl (14.0-18.0); Imm Gran Abs Auto 0.04 X10*3/uL (0.00-0.03); Imm Gran Pct Auto 0.5 % (0.0-0.4); Lymphocytes Absolute Auto 1.7 X10*3/uL (1.2-4.9); Mean Corpuscular HGB Conc 33.6 g/dl (31.0-36.0); Mean Corpuscular Hemoglobin 31.9 pg (27.0-33.0); Mean Corpuscular Volume 95.1 fL (80.0-98.0); NRBC Abs Auto 0.000 X10*3/uL (0.0-0.012); NRBC Pct Auto 0.0 /100WBC (0.0-0.2); Platelet Count 217 X10*3/uL (160-400); Red Blood Count 4.32 X10*6/uL (4.60-5.80); White Blood Count 8.5 X10*3/uL (4.8-10.8)
--- OUTSIDE RECORDS SUMMARY | 2025-06-13 12:19 | XMS_ITS | Encounter Summary ---
Author Organization [employer] Address [address] [facility] [address] [place] [address] Care Team Providers Care Director Data Architecture Name Role Phone Sharon Quijano Primary Care Provider [phone] Irvin Zapata MD Unavailable [phone] Raj Sebastian Unavailable Mallorie Rosado Unavailable [phone] Jaqui Bowman MD Unavailable Jcarlos Archer MD Unavailable [phone] Salinas Albert MD Unavailable Rain Del Castillo MD Unavailable [phone] Phil Voss MD Primary Care Provider [phone] CaliSharon bryantP Primary Care Provider [phone] Provider, Not In System Primary Care Provider Un available Encounter Details Date Type Department Care Team (Late st Contact Info) Description 01/29/2024 Orders Only [facility] [address] [place] [address] Provider, Not In System Social History Tobacco [...] documented as of this encounter Care Teams Director Data Architecture Relationship Specialty Start Date End Date Sharon Quijano FNP [address] [place] [address] PCP - General Family Medicine 10/09/22 11/14/24 Phil Voss MD [address] [place] [address] Drive [address] [place] [address] PCP - General Internal Medicine 11/15/24 12/29/24 Sharon Quijano FNP [address] [place] [address] PCP - General Family Medicine 12/30/24 03/13/25 Provider, Not In System PCP - General Family Medicine 03/14/25 Irvin Zapata MD [address] [place] [address] Gastroenterology 04/28/24 Raj Sebastian [address] [place], [place] [address] Podiatry 04/28/24 Mallorie Rosado [address] [place] [address] Cardiology 04/28/24 Jaqui Bowman MD [address] [facility], 1st [place] [address] Endocrinology 04/28/24 Jcarlos Archer MD [address] [place] [address] 2nd [place] [address] Pulmonary Disease 04/28/24 Salinas Albert MD [address] [place] [address] FAX [phone] [place] [address] Urology 04/28/24 Rain Del Castillo MD [address] [place] [address], [address] [place] [address] Neurology 04/28/24 Jeremy Oconnor Psychiatrist 04/28/24 Vasu Angulo Psychologist 04/28/24 documented as of this encounter
--- OUTSIDE RECORDS SUMMARY | 2025-06-13 12:19 | XMS_ITS | Encounter Summary ---
Author Organization [employer] Address [address] [facility] [address] [place] [address] Care Team Providers Care Ui Developer Name Role Phone Sharon Quijano Primary Care Provider [phone] Irvin Zapata MD Unavailable [phone] Raj Sebastian Unavailable Mallorie Rosado Unavailable Jaqui Bowman MD Unavailable [phone] Jcarlos Archer MD Unavailable Salinas Albert MD Unavailable Rain Del Castillo MD Unavailable [phone] Phil Voss MD Primary Care Provider Sharon Quijano SODA ROOM OPERATOR Primary Care Provider Provider, Not In System Primary Care Provider Un available Encounter Details Date Type Department Care Team (Late st Contact Info) Description 10/09/2022 [facility] [address] [place] [address] Sharon Quijano FNP [address] [place] [address] Social History Tobacco Use Types Packs/Day Years [...] on filedocumented in this encounter Care Teams Ui Developer Relationship Specialty Start Date End Date Sharon Quijano FNP [address] [place] [address] PCP - General Family Medicine 10/09/22 11/14/24 Phil Voss MD [address] [place] [address] PCP - General Internal Medicine 11/15/24 12/29/24 Sharon Quijano FNP [address] [place] [address] PCP - General Family Medicine 12/30/24 03/13/25 Provider, Not In System PCP - General Family Medicine 03/14/25 Irvin Zapata MD [address] [place] [address] Gastroenterology 04/28/24 Raj Sebastian [address] [place] [address] Podiatry 04/28/24 Mallorie Rosado [address] [place] [address] Cardiology 04/28/24 Jaqui Bowman MD [address] [facility], 1st [place] [address] Endocrinology 04/28/24 Jcarlos Archer MD [address] [place] [address] 2[address] [place] [address] Pulmonary Disease 04/28/24 Salinas Albert MD [address] [place] [address] FAX [phone] [place] [address] Urology 04/28/24 Rain Del Castillo MD [address] [place] [address], [address] [place] [address] Neurology 04/28/24 Jeremy Oconnor Psychiatrist 04/28/24 Vasu Angulo Psychologist 04/28/24 documented as of this encounter
--- OUTSIDE RECORDS SUMMARY | 2025-06-13 12:19 | XMS_ITS | Encounter Summary ---
Author Organization [employer] Address 75 [facility] 7t [place] [address] Care Team Providers Care Profiling Machine Operator Name Role Phone Sharon Quijano Primary Care Provider [phone] Irvin Zapata MD Unavailable [phone] Raj Sebastian Unavailable Mallorie Rosado Unavailable [phone] Jaqui Bowman MD Unavailable [phone] Jcarlos Archer MD Unavailable Salinas Albert MD Unavailable [phone] Rain Del Castillo MD Unavailable Phil Voss MD Primary Care Provider Sharon Quijano Primary Care Provider [phone] Provider, Not In System Primary Care Provider Un available Encounter Details Date Type Department Care Team (Late st Contact Info) Description 02/18/2024 Orders Only [facility] [address] [place] [address] Sharon Quijano FNP [address] [place], [place] [id number] Type 2 diabetes mellitus with hyperglycemia, with long-term current use of insulin ([facility]) Social History Tobacco Use Types Packs/Day [...] hyperglycemia, with long-term current use of insulin ([facility]) Expected: 02/18/2024 (Approximate), Expires: 02/17/2025 documented as of this encounter Visit Diagnoses Diagnosis Type 2 diabetes mellitus with hyperglycemia, with long-term current use of insulin ([facility]) documented in this encounter Additional Health Concerns Assessment Noted Time PHQ-9 Depression Total Score: 9 01/26/20 10:16 AM EDT documented as of this encounter Care Teams Profiling Machine Operator Relationship Specialty Start Date End Date Sharon Quijano FNP [address] [place] [address] PCP - General Family Medicine 10/09/22 11/14/24 Phil Voss MD [address] [place] [address] [address] [place] [address] PCP - General Internal Medicine 11/15/24 12/29/24 Sharon Quijano FNP [address] [place] [address] PCP - General Family Medicine 12/30/24 03/13/25 Provider, Not In System PCP - General Family Medicine 03/14/25 Irvin Zapata MD 10 [place] [address] Gastroenterology 04/28/24 Raj Sebastian [address] [place], [place] [address] Podiatry 04/28/24 Mallorie Rosado [address] [place] [address] Cardiology 04/28/24 Jaqui Bowman MD 22 [facility], 1st [place] [address] Endocrinology 04/28/24 Jcarlos Archer MD [address] [place] [address] Pulmonary Disease 04/28/24 Salinas Albert MD [address] [place] [address] FAX [phone] [place] [address] Urology 04/28/24 Rain Del Castillo MD [address] [place] [address], [address] [place] [address] Neurology 04/28/24 Jeremy Oconnor Psychiatrist 04/28/24 Vasu Angulo Psychologist 04/28/24 documented as of this encounter
--- OUTSIDE RECORDS SUMMARY | 2025-06-13 12:20 | XMS_ITS | Encounter Summary ---
Author Organization [employer] Address 75 [facility] 7t [place] [address] Care Team Providers Care Mangle Tender Name Role Phone Sharon Quijano Primary Care Provider [phone] Irvin Zapata MD Unavailable [phone] Raj Sebastian Unavailable Mallorie Rosado Unavailable Jaqui Bowman MD Unavailable [phone] Jcarlos Archer MD Unavailable [phone] Salinas Albert MD Unavailable [phone] Rain Del Castillo MD Unavailable [phone] Phil Voss MD Primary Care Provider [phone] CaliSharon bryantP Primary Care Provider [phone] Provider, Not In System Primary Care Provider Un available Encounter Details Date Type Department Care Team (Late st Contact Info) Description 07/30/2024 Orders Only [facility] [address] [place] [address] Provider, Not In System Social History Tobacco [...] PM EST) us Not In System Provider [facility] Edited Result - Final * Hemoglobin [...] documented as of this encounter Care Teams Mangle Tender Relationship Specialty Start Date End Date Sharon Quijano FNP [address] [place] [address] PCP - General Family Medicine 10/09/22 11/14/24 Phil Voss MD [address] [place] [address] PCP - General Internal Medicine 11/15/24 12/29/24 Sharon Quijano FNP [address] [place] [address] PCP - General Family Medicine 12/30/24 03/13/25 Provider, Not In System PCP - General Family Medicine 03/14/25 Irvin Zapata MD 10 [place] [address] Gastroenterology 04/28/24 Raj Sebastian [address] [place] [address] Podiatry 04/28/24 Mallorie Rosado [address] [place] [address] Cardiology 04/28/24 Jaqui Bowman MD 22 [facility], 1st [place] [address] Endocrinology 04/28/24 Jcarlos Archer MD [address] [place] [address] 2[address] [place] [address] Pulmonary Disease 04/28/24 Salinas Albert MD [address] [place] [address] FAX [phone] [place] [address] Urology 04/28/24 Rain Del Castillo MD [address] [place] [address], [address] [place] [address] Neurology 04/28/24 Jeremy Oconnor Psychiatrist 04/28/24 Vasu Angulo Psychologist 04/28/24 documented as of this encounter
--- OUTSIDE RECORDS SUMMARY | 2025-06-13 12:20 | XMS_ITS | Encounter Summary ---
Author Organization [employer] Address 75 [facility] 7t [place] [address] Care Team Providers Care Apiculture Teacher Name Role Phone Sharon Quijano Primary Care Provider [phone] Irvin Zapata MD Unavailable [phone] Raj Sebastian Unavailable Mallorie Rosado Unavailable Jaqui Bowamn MD Unavailable [phone] Jcarlos Archer MD Unavailable [phone] Salinas Albert MD Unavailable Rain Del Castillo MD Unavailable [phone] Phil Voss MD Primary Care Provider [phone] CaliShraon bryantP Primary Care Provider [phone] Provider, Not In System Primary Care Provider Un available Encounter Details Date Type Department Care Team (Late st Contact Info) Description 11/18/2023 Orders Only [facility] [address] [place] [address] Provider, Not In System Social History Tobacco [...] on filedocumented in this encounter Care Teams Apiculture Teacher Relationship Specialty Start Date End Date Sharon Quijano FNP [address] [place] [address] PCP - General Family Medicine 10/09/22 11/14/24 Phil Voss MD [address] [place] [address] [address] [place] [address] PCP - General Internal Medicine 11/15/24 12/29/24 Sharon Quijano FNP [address] [place] [address] PCP - General Family Medicine 12/30/24 03/13/25 Provider, Not In System PCP - General Family Medicine 03/14/25 Irvin Zapata MD [address] [place] [address] Gastroenterology 04/28/24 Raj Sebastian [address] [place] [address] Podiatry 04/28/24 Mallorie Rosado [address] [place] [address] Cardiology 04/28/24 Jaqui Bowman MD [address] [place] [address] Endocrinology 04/28/24 Jcarlos Archer MD [address] [place] [address] Pulmonary Disease 04/28/24 Salinas Albert MD [address] [place] [address] FAX [phone] [facility] [phone] Urology 04/28/24 Rain Del Castillo MD [address] [place] [address], [address] [place] [address] Neurology 04/28/24 Jeremy Oconnor Psychiatrist 04/28/24 Vasu Angulo Psychologist 04/28/24 documented as of this encounter
--- OUTSIDE RECORDS SUMMARY | 2025-06-13 12:20 | XMS_ITS | Encounter Summary ---
Author Organization [employer] Address 75 [facility] 7t [place] [address] Care Team Providers Care Custodian Athletic Equipment Name Role Phone Sharon Quijano Primary Care Provider [phone] Irvin Zapata MD Unavailable [phone] Raj Sebastian Unavailable Mallorie Rosado Unavailable [phone] Jaqui Bowman MD Unavailable [phone] Jcarlos Archer MD Unavailable Salinas Albert MD Unavailable Rain Del Castillo MD Unavailable Phil Voss MD Primary Care Provider Sharon Quijano Primary Care Provider [phone] Provider, Not In System Primary Care Provider Un available Encounter Details Date Type Department Care Team (Late st Contact Info) Description 12/08/2023 Telephone [facility] [address] [facility] [address] [place] [address] Sharon Quijano FNP [address] [place] [address] Social History Tobacco Use Types Packs/Day Years [...] 12/08/2023 12:29 PM EDT Please fax referral #[id number] documented in this encounter Plan of Treatment Not on file documented as of this encounter Visit Diagnoses Not on filedocumented in this encounter Care Teams Custodian Athletic Equipment Relationship Specialty Start Date End Date Sharon Quijano FNP [address] [place] [address] PCP - General Family Medicine 10/09/22 11/14/24 Phil Voss MD [address] [place] [address] [place] [address] PCP - General Internal Medicine 11/15/24 12/29/24 Sharon Quijano FNP [address] [place] [address] PCP - General Family Medicine 12/30/24 03/13/25 Provider, Not In System PCP - General Family Medicine 03/14/25 Irvin Zapata MD [address] [place] [address] Gastroenterology 04/28/24 Raj Sebastian [address] [place] [address] Podiatry 04/28/24 Mallorie Rosado [address] [place] [address] Cardiology 04/28/24 Jaqui Bowman MD [address] [place] [address], 1st [place] [address] Endocrinology 04/28/24 Jcarlos Archer MD 10 [facility] 2nd [place] [address] Pulmonary Disease 04/28/24 Salinas Albert MD 48 [facility] [place] FAX [phone] [place] [address] Urology 04/28/24 Rain Del Castillo MD [address] [place] [address], [address] [place] [address] Neurology 04/28/24 Jeremy Oconnor Psychiatrist 04/28/24 Vasu Angulo Psychologist 04/28/24 documented as of this encounter
--- OUTSIDE RECORDS SUMMARY | 2025-06-13 12:20 | XMS_ITS | Encounter Summary ---
Author Organization [employer] Address 75 [facility] 7t [place] [address] Care Team Providers Care Housekeeping Department Worker Name Role Phone Sharon Quijano Primary Care Provider [phone] Irvin Zapata MD Unavailable [phone] Raj Sebastian Unavailable Mallorie Rosado Unavailable [phone] Jaqui Bowman MD Unavailable [phone] Jcarlos Archer MD Unavailable [phone] Salinas Albert MD Unavailable [phone] Rain Del Castillo MD Unavailable [phone] Phil Voss MD Primary Care Provider [phone] CaliSharon bryantP Primary Care Provider [phone] Provider, Not In System Primary Care Provider Un available Encounter Details Date Type Department Care Team (Late st Contact Info) Description 09/06/2024 Orders Only [facility] [address] [place] [address] Provider, Not In System Social History Tobacco [...] documented as of this encounter Care Teams Housekeeping Department Worker Relationship Specialty Start Date End Date Sharon Quijano FNP [address] [place] [address] PCP - General Family Medicine 10/09/22 11/14/24 Phil Voss MD [address] [facility] [address] [place] [address] PCP - General Internal Medicine 11/15/24 12/29/24 Sharon Quijano FNP [address] [place] [address] PCP - General Family Medicine 12/30/24 03/13/25 Provider, Not In System PCP - General Family Medicine 03/14/25 Irvin Zapata MD 10 [place] [address] Gastroenterology 04/28/24 Raj Sebastian [address] [place] [address] Podiatry 04/28/24 Mallorie Rosado [address] [place] [address] Cardiology 04/28/24 Jaqui Bowman MD 22 [facility], 1st [place] [address] Endocrinology 04/28/24 Jcarlos Archer MD [address] [place] [address] Pulmonary Disease 04/28/24 Salinas Albert MD [address] [place] [address] FAX [phone]) [place] [address] Urology 04/28/24 Rain Del Castillo MD [address] [place] [address], [address] [place] [address] Neurology 04/28/24 Jeremy Oconnor Psychiatrist 04/28/24 Vasu Angulo Psychologist 04/28/24 documented as of this encounter
--- OUTSIDE RECORDS SUMMARY | 2025-06-13 12:20 | XMS_ITS | Clinical Summary ---
Author Organization [facility] Address [address] [place] [address] Phone Care Team Providers Care Certified Professional Ergonomist Name Role Phone Phli Voss MD Primary Care Provider Allergies Active Allergy Reactions Criticality Noted Date Comments Bupropion Other 06/01/2025 manic Olanzapine-Samidorphan Other 06/01/2025 High blood sugar Olanzapine Weight Gain 06/01/2025 Sulfa (Sulfonamide Antibiotics) 05/05 Childhood rash Medications atorvastatin (LIPITOR) 20 mg tablet Take 1 tablet (20 mg total) by mouth at bedtime. Active benztropine (COGENTIN) 0.5 mg tablet Take 1 tablet (0.5 mg total) by mouth 2 (two) times a day. Active divalproex (DEPAKOTE ER) 250 mg 24 hr tablet Take 1 tablet (250 mg total) by mouth 2 (two) times a day. Active divalproex (DEPAKOTE ER) 500 mg 24 hr tablet Take 1 tablet (500 mg total) by mouth 2 (two) times a day. Active escitalopram (LEXAPRO) 10 mg tablet Take 1 tablet (10 mg total) by mouth 1 (one) time each day. 5 Active Trelegy Ellipta 100-62.5-25 mcg inhaler Inhale 1 puff (100 mcg total) by mouth 1 (one) time each day. 5 Active insulin glargine,hum.rec. anlog (Basaglar KwikPen U-100 Insulin) 100 unit/mL (3 mL) injection pen Inject 46 Units under the skin 1 (one) time each day. 5 Active HumaLOG KwikPen Insulin 200 unit/mL (3 mL) CONCENTRATED injection pen Inject 15 Units under the skin 3 (three) times a day before meals. 4 Active Caplyta 42 mg capsule Take 1 capsule (42 mg total) by mouth 1 (one) time each day. 5 Active metFORMIN XR (GLUCOPHAGE-XR) 500 mg 24 hr tablet Take 1 tablet (500 mg total) by mouth 1 (one) time each day. 5 Active metoprolol succinate (TOPROL-XL) 50 mg 24 hr tablet Take 1 tablet (50 mg total) by mouth 1 (one) time each day. 5 Active mirabegron (MYRBETRIQ) 25 mg 24 hr tablet Take 1 tablet (25 mg total) by mouth 1 (one) time each day. 5 Active pregabalin (LYRICA) 200 mg capsule Take 1 capsule (200 mg total) by mouth 2 (two) times a day. 5 Active Xarelto 20 mg tablet Take 1 tablet (20 mg total) by mouth 1 (one) time each day with dinner. 5 Active albuterol HFA (PROAIR HFA ; PROVENTIL HFA ; VENTOLIN HFA) 90 mcg/actuation inhaler Inhale 2 puffs by mouth every 4 (four) hours if needed for wheezing. Active Active Problems Problem Noted Date Diagnosed Date Type 2 diabetes mellitus wit h foot ulcer (CODE) ([facility] V24, [facility] V28) 06/01/2025 Non-pressure chronic ulcer o f other part of right foot with fat layer exposed ([facility] V24, [facility] V28) 06/01/2025 Type 2 diabetes mellitus wit h polyneuropathy ([facility], [facility] V28) 06/01/2025 Encounters Date Type Department Care Team Description 06/08/2025 2:15 PM EST Office Visit [facility] [address] [place] [address] [phone] Shyam Verdin MD Type 2 diabetes mellitus with foot ulcer (CODE) ([facility], [facility] V28) (Primary Dx); Non-pressure chronic ulcer of other part of right foot with fat layer exposed ([facility] V24, [facility] V28); Type 2 diabetes mellitus with polyneuropathy ([facility] V24, [facility] V28) 06/01/2025 12:45 PM EDT Office Visit [facility] [address] [place] [address] [phone] Jcarlos Armas PA Type 2 diabetes mellitus with foot ulcer (CODE) ([facility], [facility] V28) (Primary Dx); Non-pressure chronic ulcer of other part of right foot with fat layer exposed ([facility] V[facility], [facility] V28); Type 2 diabetes mellitus with polyneuropathy ([facility] V24, [facility] V28); Diabetic polyneuropathy associated with type 2 diabetes mellitus ([facility], [facility] V28) from Last 3 Months Surgical History Surgery Date Site/Laterality Comments CARDIAC PACEMAKER PLACEMENT 08/04/2021 - 09/03/2021 OTHER SURGICAL HISTORY Cardiac Ablation 08/2021 Medical History Medical History Date Comments Hypertrophic cardiomyopathy ([facility], [facility] V28) COPD (chronic obstructive pulmonary disease) ( [facility] V24, [facility] V28) Asthma Anxiety Cataract Diabetes mellitus ([facility] V24, [facility] V28) Depression GERD (gastroesophageal reflux disease) Neuropathy Hypertension Measles Mumps Chicken pox Seizure ([facility] V[facility], [facility] V28) CAD (coronary artery disease) Family History Medical History Relation Name Comments Hyperlipidemia Father Diabetes Father's Brother Hyperlipidemia Maternal Grandfather Diabetes Mother's Brother Hyperlipidemia Paternal Grandfather Diabetes Paternal Grandmother Relation Name Status Comments Father Father's Brother Maternal Grandfather Mother Mother's Brother Paternal Grandfather Paternal Grandmother Social History Tobacco Use Types Packs/Day Years Used Date Smoking Tobacco: Former Cigarettes 44.9 S tarted: 1981 Smokeless Tobacco: Never Tobacco Cessation:Counseling Given: Not Answered Alcohol Use Standard Drinks/Week Comments Yes 0 (1 standard drink = 0.6 oz pur e alcohol) Sex and Gender Information Value Date Recorded Sex Assigned at Male 05/17/2025 3:39 PM EDT Legal Sex Male 11:58 AM EDT Gender Identity Male 05/17/2025 3:39 PM EDT Sexual Orientation Bisexual 05/17/2025 3: 39 PM EDT Travel History Travel Start Travel End [place] 06/02/2025 06/05/2025 Obstetrics History Last Filed Vital Signs Vital Sign Reading Time Taken Comments Blood Pressure 147/65 06/08/2025 2:15 PM EST Pulse 69 06/08/2025 2:15 PM EST Temperature 36 C (96.8 F) 06/08/2025 2:15 PM EST Respiratory Rate 16 06/08/2025 2:15 PM EST Oxygen Saturation 96% 06/08/2025 2:15 PM EST Inhaled Oxygen Concentration - - Weight 122 kg (270 lb) 06/01/2025 1:22 PM EDT Height 177.8 cm (5' 10 ) 06/01/2025 1:22 PM EDT Body Mass Index 38.74 06/01/2025 1:22 PM EDT Plan of Treatment Upcoming Encounters Date Type Department Care Team (Late st Contact Info) Description 06/15/2025 2:45 PM EST Clinical Support [facility] [address] [place] [phone] 08/16/2025 12:00 PM EST Ancillary Procedure [facility] [address] [place] [phone] Health Maintenance Due Date Last Done Comments Colorectal Cancer Screening: Colonoscopy 1964 Diabetes: Annual GFR (Glomerular Filtration Rate) 1964 Diabetes: Annual Foot Exam 1974 Diabetes: Annual Retina Eye Exam 1974 Hepatitis A Vaccines (1 of 2 - Risk 2-dose series) 11/13/1983 RSV Immunization Adult Patients (1 - Risk 50-74 years 1-dose series) 2014 Hepatitis B Vaccines (1 of 3 - Risk 3-dose series) 2024 COVID-19 Vaccine ( - season) 2025 Influenza Vaccine (#1) 2025 , 04/24/2023, 05/22/2022, Additional history exists HIV Screening 05/16/2025 Hepatitis C Screening 05/16/2025 Medicare Annual Wellness Visit 05/16/2025 Social Influencers of Health Screening 05/16/2025 Diabetes: Annual Urine Albumin-Creatinine Ratio (uACR) 06/01/2025 Diabetes: Blood Sugar Control Test (HGBA1C) 06/01/2025 10/01/2024 Hypertension/CHF/CAD Annual BMP Blood Test 06/08/2025 Cholesterol Screening (Lipid Panel) 10/01/2029 10/01/2024 DTaP,Tdap,and Td Vaccines (2 - Td or Tdap) 09/01/2033 09/01/2023 Pneumococcal Vaccine: 50+ Years Completed 09/01/2023, 11/26/2017 Zoster Vaccines Completed 04/15/2024, 05/09/2021 Depression Screening Completed 06/01/2025 HIB Vaccines Aged Out No longer eligi [...] to complete this topic RSV Immunization Patients Under 20 months Aged Out No longer eligible based on patient's age to complete this topic Varicella Vaccines Aged Out No longer eligible based on patient's age to complete this topic Goals Goal Patient Goal Type Associated Problems Recent Progress Patient-Stated? Author Decrease Wound Volume by X% by date (in notes) Care Plan Impaired Tissue On track( 2:43 PM EST) No Ignacia Hyde RN Patient and Caregiver Understand Wound Care Education Care Plan Impaired Tissue On track( 025 2:43 PM EST) Ignacia Arzate RN Wound volume breakdown reduced by X% by week 4 Care Plan Impaired Tissue Ignacia Arzate RN Wound volume breakdown reduced by X% by week 8 Care Plan Impaired Tissue Ignacia Arzate RN Wound volume breakdown reduced by X% by week 12 Care Plan Impaired Tissue Ignacia Arzate RN Quit using tobacco (cigarettes, smokeless, etc) Care Plan Education needed on impact of smoking on wound Ignacia Arzate RN Reduce tobacco use (cigarettes, smokeless, etc) Care Plan Education needed on impact of smoking on wound Ignacia Arzate RN Decrease Wound Volume by X% by date (in notes) Care Plan Education needed on impact of smoking on wound Ignacia Arzate RN Patient and Caregiver Understand Wound Care Education Care Plan Education needed related to ulceration/compr omised skin integrity. Ignacia Arzate RN Procedures Procedure Name Priority Date/Time Associated Diagnosis Comments DEBRIDEMENT Routine 06/08/2025 2:15 PM EST Type 2 diabetes mellitus with foot ulcer (CODE) (CMS/HCC V24, CMS/HCC V28) Non-pressure chronic ulcer of other part of right foot with fat layer exposed (CMS/HCC V24, CMS/HCC V28) Type 2 diabetes mellitus with polyneuropathy (CMS/HCC V24, CMS/HCC V28) DEBRIDEMENT Routine 06/01/2025 12:45 PM EDT Type 2 diabetes mellitus with foot ulcer (CODE) (CMS/HCC V24, CMS/HCC V28) Non-pressure chronic ulcer of other part of right foot with fat layer exposed (CMS/HCC V24, CMS/HCC V28) Type 2 diabetes mellitus with polyneuropathy (CMS/HCC V24, CMS/HCC V28) from Last 3 Months Results * Debridement Diabetic Ulcer Right;Plantar (06/08/2025 [...] MD IN CLINIC/BEDSIDE ORDERAB LES Final Result * Debridement Diabetic Ulcer Right;Plantar (06/01/2025 12:45 PM EDT) Shyam Stanton MD - 06/01/2025 12:45 PM EDT Shyam Verdin MD 06/07/2025 12:46 PM Debridement Diabetic Ulcer Right;Plantar Performed by: ISMA Islas Authorized by: ISMA Islas Associated wounds: Wound Diabetic Ulcer 06/01/25 Right;Plantar Consent: Consent obtained: Verbal Consent given by: Patient Risks discussed: Yes Time out: Immediately prior to the procedure a time out was called Debridement Details: Performed by: ISMA Type: surgical Level: subcutaneous tissue Pain control: Lidocaine 4% Severity of Tissue Pre Debridement: Fat layer exposed Severity of Tissue Post Debridement: Fat layer exposed Length (cm): 1.2 Width (cm): 1.7 Depth (cm): 0.4 Area (cm^2): 2.04 Length (cm): 1.2 Width (cm): 1.7 Depth (cm): 0.4 Percent Debrided (%): 100 Surface Area (cm^2): 2.04 Area Debrided (cm^2): 2.04 Volume (cm^3): 0.82 Tissue and other material debrided: dermis, epidermis and subcutaneous tissue Devitalized tissue debrided: biofilm, callus and slough Instrument: Curette Amount of bleeding: small Hemostasis obtained with: Pressure and silver nitrate Procedural pain: 0 Post-procedural pain: 0 Response to treatment: Procedure was tolerated well us Jcarlos ASHBY IN CLINIC/BEDSIDE ORDERABLE S Final Result from Last 3 Months Additional Health Concerns Active Problems Noted Date Diagnosed Date Impaired Tissue 06/01/2025 Education needed on impact of smoking on wound 1 Education needed related to ulceration/compromised skin integrity. 06/01/2025 Insurance MEDICARE [facility] Care Teams Certified Professional Ergonomist Relationship Specialty Start Date End Date Phil Voss MD [address] [place] [address] Dr Meredith [address] [place] [address] PCP - General Internal Medicine 05/16/25
--- OUTSIDE RECORDS SUMMARY | 2025-06-13 12:20 | XMS_ITS | Encounter Summary ---
Author Organization [employer] Address [address] [facility] 7t [place] [address] Care Team Providers Care Fur Cutting Machine Operator Name Role Phone Sharon Quijano Primary Care Provider [phone] Irvin Zapata MD Unavailable Raj Sebastian Unavailable Mallorie Rosado Unavailable [phone] Jaqui Bowman MD Unavailable [phone] Jcarlos Archer MD Unavailable Salinas Albert MD Unavailable Rain Del Castillo MD Unavailable [phone] Phil Voss MD Primary Care Provider [phone] CaliSharon bryantP Primary Care Provider [phone] Provider, Not In System Primary Care Provider Un available Encounter Details Date Type Department Care Team (Late st Contact Info) Description 12/19/2023 Orders Only [facility] [address] [place] [address] Provider, Not In System Social History Tobacco [...] on filedocumented in this encounter Care Teams Fur Cutting Machine Operator Relationship Specialty Start Date End Date Sharon Quijano FNP [address] [place] [address] PCP - General Family Medicine 10/09/22 11/14/24 Phil Voss MD [address] [place] [address] Drive [address] [place] [address] PCP - General Internal Medicine 11/15/24 12/29/24 Sharon Quijano FNP [address] [place] [address] PCP - General Family Medicine 12/30/24 03/13/25 Provider, Not In System PCP - General Family Medicine 03/14/25 Irvin Zapata MD [address] [place] [address] Gastroenterology 04/28/24 Raj Sebastian [address] [place] [address] Podiatry 04/28/24 Mallorie Rosado [address] [place] [address] Cardiology 04/28/24 Jaqui Bowman MD [address] [place] [address] Endocrinology 04/28/24 Jcarlos Archer MD [address] [place] [address] Pulmonary Disease 04/28/24 Salinas Albert MD [address] [place] [address] FAX [phone] Urology 04/28/24 Rain Del Castillo MD [address] [place] [address], [address] [place] [address] Neurology 04/28/24 Jeremy Oconnor Psychiatrist 04/28/24 Vasu Angulo Psychologist 04/28/24 documented as of this encounter
--- OUTSIDE RECORDS SUMMARY | 2025-06-13 12:20 | XMS_ITS | Encounter Summary ---
Author Organization [employer] Address [address] [facility] 7t [place] [address] Care Team Providers Care Sql Report Developer Name Role Phone Sharon Quijano Primary Care Provider [phone] Irvin Zapata MD Unavailable [phone] Raj Sebastian Unavailable Mallorie Rosado Unavailable Jaqui Bowman MD Unavailable [phone] Jcarlos Archer MD Unavailable Salinas Albert MD Unavailable Rain Del Castillo MD Unavailable [phone] Phil Voss MD Primary Care Provider Sharon Quijano Primary Care Provider Provider, Not In System Primary Care Provider Un available Encounter Details Date Type Department Care Team (Late st Contact Info) Description 04/27/2024 Telephone [facility] [address] [place] [address] Sharon Quijano FNP [address] [place], [place] [phone] Social History Tobacco Use Types Packs/Day Years [...] documented as of this encounter Care Teams Sql Report Developer Relationship Specialty Start Date End Date Sharon Quijano FNP [address] [place] [address] PCP - General Family Medicine 10/09/22 11/14/24 Phil Voss MD [address] [place] [address] Drive [address] [place] [address] PCP - General Internal Medicine 11/15/24 12/29/24 Sharon Quijano FNP [address] [place] [address] PCP - General Family Medicine 12/30/24 03/13/25 Provider, Not In System PCP - General Family Medicine 03/14/25 Irvin Zapata MD [address] [place] [address] Gastroenterology 04/28/24 Raj Sebastian [address] [place] [address] Podiatry 04/28/[address] [place] [address] Cardiology 04/28/24 Jaqui Bowman MD [address] [facility], 1st [place] [address] Endocrinology 04/28/24 Jcarlos Archer MD [address] [place] [address] Pulmonary Disease 04/28/24 Salinas Albert MD [address] [place] [address] FAX [phone] [place] [address] Urology 04/28/24 Rain Del Castillo MD [address] [place] [address], [address] [place] [address] Neurology 04/28/24 Jeremy Oconnor Psychiatrist 04/28/24 Vasu Angulo Psychologist 04/28/24 documented as of this encounter
--- OUTSIDE RECORDS SUMMARY | 2025-06-13 12:20 | XMS_ITS | Encounter Summary ---
Author Organization [employer] Address [address] [facility] 7t [place] [address] Care Team Providers Care Continuous Mining Machine Coal Miner Name Role Phone Irvin Zapata MD Unavailable [phone] Raj Sebastian Unavailable Mallorie Rosado Unavailable Jaqui Bowman MD Unavailable [phone] Jcarlos Archer MD Unavailable [phone] Salinas Albert MD Unavailable [phone] Rain Del Castillo MD Unavailable [phone] Sharon Quijano TAX COMPLIANCE AGENT Primary Care Provider [phone] Provider, Not In System Primary Care Provider Un available Encounter Details Date Type Department Care Team (Late st Contact Info) Description 12/30/[address] [address] Sharon Quijano [address] [address] Social History Tobacco Use Types [...] called on vmail at 216 pm from [facility] returning a call to nursing. She said her number so fast I had to listen twice and I got [phone] * Telephone Encounter - Di Weaver - 12/30/2024 1:58 PM EDT [facility] and she did not leave a number documented in this encounter Plan of Treatment Not on file documented as of this encounter Visit Diagnoses Not on filedocumented in this encounter Additional Health Concerns Assessment Noted Time PHQ-9 Depression Total Score: 9 01/26/20 24 10:16 AM EDT documented as of this encounter Care Teams Continuous Mining Machine Coal Miner Relationship Specialty Start Date End Date Sharon Quijano FNP [address] [place] [address] PCP - General Family Medicine 12/30/24 03/13/25 Provider, Not In System PCP - General Family Medicine 03/14/25 Irvin Zapata MD [address] [place] [address] Gastroenterology 04/28/24 Raj Sebastian [address] [place], [place] [address] Podiatry 04/28/24 Mallorie Rosado [address] [place] [address] Cardiology 04/28/24 Jaqui Bowman MD [facility] 1[facility] [place] [address] Endocrinology 04/28/24 Jcarlos Archer MD [address] [place] [address] 2nd [place] [address] Pulmonary Disease 04/28/24 Salinas Albert MD [address] [place] [address] FAX [phone] [place] [address] Urology 04/28/24 Rain Del Castillo MD [address] [place] [address], [address] [place] [address] Neurology 04/28/24 Jeremy Oconnor Psychiatrist 04/28/24 Vasu Angulo Psychologist 04/28/24 documented as of this encounter
--- OUTSIDE RECORDS SUMMARY | 2025-06-13 12:20 | XMS_ITS | Encounter Summary ---
Author Organization [employer] Address [address] [facility] [address] 7[address] [place] [address] Care Team Providers Care Benefit Specialist Name Role Phone Irvin Zapata MD Unavailable [phone] Raj Sebastian Unavailable Mallorie Rosado Unavailable [phone] Jaqui Bowman MD Unavailable [phone] Jcarlos Archer MD Unavailable [phone] Salinas Albert MD Unavailable [phone] Rain Del Castillo MD Unavailable [phone] Provider, Not In System Primary Care Provider Un available Encounter Details Date Type Department Care Team (Late st Contact Info) Description 05/24/2025 Orders Only [facility] Information Management [address] [place] [phone] Provider, Not In System Social History Tobacco [...] documented as of this encounter Care Teams Benefit Specialist Relationship Specialty Start Date End Date Provider, Not In System PCP - General Family Medicine 03/14/25 Irvin Zapata MD [address] [place] [address] Gastroenterology 04/28/24 Raj Sebastian [address] [place] [address] Podiatry 04/28/24 Mallorie Rosado [address] [place] [address] Cardiology 04/28/24 Jaqui Bowman MD [address] [place] [address] Endocrinology 04/28/24 Jcarlos Archer MD [address] [place] [address] Pulmonary Disease 04/28/24 Salinas Albert MD [address] [place] [address] FAX ([phone], [place] [address] Urology 04/28/24 Rain Del Castillo MD [address] [place] [address], [address] [place] [address] Neurology 04/28/24 Jeremy Oconnor Psychiatrist 04/28/24 Vasu Angulo Psychologist 04/28/24 documented as of this encounter
--- OUTSIDE RECORDS SUMMARY | 2025-06-13 12:20 | XMS_ITS | Encounter Summary ---
Author Organization [employer] Address [address] [facility] 7t [place] [address] Care Team Providers Care Shake Sawyer Name Role Phone Sharon Quijano Primary Care Provider [phone] Irvin Zapata MD Unavailable [phone] Raj Sebastian Unavailable Mallorie Rosado Unavailable Jaqui Bowman MD Unavailable [phone] Jcarlos Archer MD Unavailable [phone] Salinas Albert MD Unavailable Rain Del Castillo MD Unavailable Phil Voss MD Primary Care Provider Sharon Quijano Primary Care Provider [phone] Provider, Not In System Primary Care Provider Un available Encounter Details Date Type Department Care Team (Late st Contact Info) Description 10/13/2024 Telephone [facility] [address] [facility] [address] [place] [address] Sharon Quijano FNP [address] [place] [address] Social History Tobacco Use Types Packs/Day Years [...] - 10/13/2024 9:58 AM EDT Leona from [facility] is calling to ask if sharon would sign medical orders if needed for patient, patient was reffered to them by the wound center but just wanted to give an FYI to pcp incaseof need later on [phone] documented in this encounter Plan of Treatment Not on file documented as of this encounter Visit Diagnoses Not on filedocumented in this encounter Additional Health Concerns Assessment Noted Time PHQ-9 Depression Total Score: 9 01/26/20 10:16 AM EDT documented as of this encounter Care Teams Shake Sawyer Relationship Specialty Start Date End Date Sharon Quijano FNP [address] [place] [address] PCP - General Family Medicine 10/09/22 11/14/24 Phil Voss MD [address] [place] [address] PCP - General Internal Medicine 11/15/24 12/29/24 Sharon Quijano FNP [address] [place] [address] PCP - General Family Medicine 12/30/24 03/13/25 Provider, Not In System PCP - General Family Medicine 03/14/25 Irvin Zapata MD 10 [place] [address] Gastroenterology 04/28/24 Raj Sebastian [address] [place], [place] 107 Podiatry 04/28/[address] [place] [address] Cardiology 04/28/24 Jaqui Bowman MD [address] [address] Endocrinology 04/28/24 Jcarlos Archer MD [address] [place] [address] Pulmonary Disease 04/28/24 Salinas Albert MD [address] [place] [address] FAX (413[place], [place] [address] Urology 04/28/24 Rain Del Castillo MD [address] [place] [address] Neurology 04/28/24 Jeremy Oconnor Psychiatrist 04/28/24 Vasu Angulo Psychologist 04/28/24 documented as of this encounter
--- OUTSIDE RECORDS SUMMARY | 2025-06-13 12:20 | XMS_ITS | Encounter Summary ---
Author Organization [employer] Address [address] [facility] 7t [place] [address] Care Team Providers Care Sandblast Carver Name Role Phone Sharon Quijano Primary Care Provider [phone] Irvin Zapata MD Unavailable [phone] Raj Sebastian Unavailable Mallorie Rosado Unavailable Jaqui Bowman MD Unavailable [phone] Jcarlos Archer MD Unavailable Salinas Albert MD Unavailable [phone] Rain Del Castillo MD Unavailable Phil Voss MD Primary Care Provider Sharon Quijano Primary Care Provider Provider, Not In System Primary Care Provider Un available Encounter Details Date Type Department Care Team (Late st Contact Info) Description 11/24/2023 Abstract [facility] [address] [place] [address] Sharon Quijano FNP [address] [place] [address] Social History Tobacco Use Types Packs/Day Years [...] the past 12 months, has t he [employer], gas, oil or water [employer] threatened to shut off services in your [...] on filedocumented in this encounter Care Teams Sandblast Carver Relationship Specialty Start Date End Date Sharon Quijano FNP [address] [place] [address] PCP - General Family Medicine 10/09/22 11/14/24 Phil Voss MD [address] [place] [address] PCP - General Internal Medicine 11/15/24 12/29/24 Sharon Quijano FNP [address] [place] [address] PCP - General Family Medicine 12/30/24 03/13/25 Provider, Not In System PCP - General Family Medicine 03/14/25 Irvin Zapata MD [address] [place] [address] Gastroenterology 04/28/24 Raj Sebastian [address] [place], [place] [address] Podiatry 04/28/24 Mallorie Rosado [address] [place] [address] Cardiology 04/28/24 Jaqui Bowman MD [address] [place] [address], [address] [place] [address] Endocrinology 04/28/24 Jcarlos Archer MD [address] [place] [address] Pulmonary Disease 04/28/24 Salinas Albert MD [address] [place] [address] FAX ([phone] [place] [address] Urology 04/28/24 Rain Del Castillo MD [address] [place] [address], [address] [place] [address] Neurology 04/28/24 Jeremy Oconnor Psychiatrist 04/28/24 Vasu Angulo Psychologist 04/28/24 documented as of this encounter
--- OUTSIDE RECORDS SUMMARY | 2025-06-13 12:20 | XMS_ITS ---
Care Plan Created on: June 13, 2025 Pb Waterman : 1965 Sex: Male Author Organization [facility] Address [address] [place] [address] Phone Care Team Providers Care Compliance Auditor Name Role Phone Phil Voss MD Primary Care Provider [phone] Active Problems Problem Noted Date Diagnosed Date Type 2 diabetes mellitus wit h foot ulcer (CODE) ([facility] V24, [facility] V28) 06/01/2025 Non-pressure chronic ulcer o f other part of right foot with fat layer exposed ([facility] V24, [facility] V28) 06/01/2025 Type 2 diabetes mellitus wit h polyneuropathy ([facility] V24, [facility] V28) 06/01/2025 Additional Health Concerns Active Problems Noted Date Diagnosed Date Impaired Tissue 06/01/2025 Education needed on impact of smoking on wound 1 Education needed related to ulceration/compromised skin integrity. 06/01/2025 Goals Goal Patient Goal Type Associated Problems Recent Progress Patient-Stated? Author Decrease Wound Volume by X% by date (in notes) Care Plan Impaired Tissue On track( 2:43 PM EST) No Ignacia Hyde RN Patient and Caregiver Understand Wound Care Education Care Plan Impaired Tissue On track( 2:43 PM EST) No Ignacia Hyde glass sander volume breakdown reduced by X% by week [...] ulceration/compr omised skin integrity. Ignacia Arzate RN Interventions Care Plan Interventions Intervention Entry Date Outcome Provide caregiver with wound care procedure information 06/01/2025 Educate caregiver on proper wound care procedures 06/01/2025 Give provider list of wound care supplies 06/01/2025 Refill wound care supplies 06/01/2025 Send Wound Care Supplies 06/01/2025 Give provider list of wound care supplies 06/01/2025 Refill wound care supplies 06/01/2025 Send Wound Care Supplies 06/01/2025 Provide caregiver with wound care procedure information 06/01/2025 Educate caregiver on proper wound care procedures 06/01/2025 Document patient eligibility for HBO 06/01/2025 Assess patient for HBO treatment 06/01/2025 Record wound depth 06/01/2025 Record total wound area 06/01/2025 Measure wound progress 06/01/2025 Create an action plan identifying patient strengths and supports 06/01/2025 Establish quit date with patient 06/01/2025 Discuss prior cessation attempts 06/01/2025 Discuss preferred method of cessation and plan 06/01/2025 Discuss barriers to smoking cessation 06/01/2025 Discuss smoking status with patient 06/01/2025 Create an action plan identifying patient strengths and supports 06/01/2025 Establish quit date with patient 06/01/2025 Discuss prior cessation attempts 06/01/2025 Discuss preferred method of cessation and plan 06/01/2025 Discuss barriers to smoking cessation 06/01/2025 Discuss smoking status with patient 06/01/2025 Provide caregiver with wound care procedure information 06/01/2025 Educate caregiver on proper wound care procedures 06/01/2025 Document patient eligibility for HBO 06/01/2025 Assess patient for HBO treatment 06/01/2025 Record wound depth 06/01/2025 Record total wound area 06/01/2025 Measure wound progress 06/01/2025 Provide caregiver with wound care procedure information 06/01/2025 Educate caregiver on proper wound care procedures 06/01/2025 Document patient eligibility for HBO 06/01/2025 Assess patient for HBO treatment 06/01/2025 Record wound depth 06/01/2025 Record total wound area 06/01/2025 Measure wound progress 06/01/2025 Provide caregiver with wound care procedure information 06/01/2025 Educate caregiver on proper wound care procedures 06/01/2025 Document patient eligibility for HBO 06/01/2025 Assess patient for HBO treatment 06/01/2025 Record wound depth 06/01/2025 Record total wound area 06/01/2025 Measure wound progress 06/01/2025 Provide caregiver with wound care procedure information 06/01/2025 Educate caregiver on proper wound care procedures 06/01/2025 Give provider list of wound care supplies 06/01/2025 Refill wound care supplies 06/01/2025 Send Wound Care Supplies 06/01/2025 Give provider list of wound care supplies 06/01/2025 Refill wound care supplies 06/01/2025 Send Wound Care Supplies 06/01/2025 Provide caregiver with wound care procedure information 06/01/2025 Educate caregiver on proper wound care procedures 06/01/2025 Record wound depth 06/01/2025 Record total wound area 06/01/2025 Measure wound progress 06/01/2025 Related Goals and Interventions Goal Associated Intervent ions Decrease Wound Volume by X% by date (in notes) Give provider list of wound care supplie s; Refill wound care supplies; Send Wound Care Supplies; Provide caregiver with wound care procedure information; Educate caregiver on proper wound care procedures; Record wound depth; Record total wound area; Measure wound progress Patient and Caregiver Unders tand Wound Care Education Provide caregiver with wound care proced ure information; Educate caregiver on proper wound care procedures; Give provider list of wound care supplies; Refill wound care supplies; Send Wound Care Supplies Wound volume breakdown reduc ed by X% by week 4 Provide caregiver with wound care proced ure information; Educate caregiver on proper wound care procedures; Document patient eligibility for HBO; Assess patient for HBO treatment; Record wound depth; Record total wound area; Measure wound progress Wound volume breakdown reduc ed by X% by week 8 Provide caregiver with wound care proced ure information; Educate caregiver on proper wound care procedures; Document patient eligibility for HBO; Assess patient for HBO treatment; Record wound depth; Record total wound area; Measure wound progress Wound volume breakdown reduc ed by X% by week 12 Provide caregiver with wound care proced ure information; Educate caregiver on proper wound care procedures; Document patient eligibility for HBO; Assess patient for HBO treatment; Record wound depth; Record total wound area; Measure wound progress Quit using tobacco (cigarett es, smokeless, etc) Create an action plan identifying patien t strengths and supports; Establish quit date with patient; Discuss prior cessation attempts; Discuss preferred method of cessation and plan; Discuss barriers to smoking cessation; Discuss smoking status with patient Reduce tobacco use (cigarett es, smokeless, etc) Create an action plan identifying patien t strengths and supports; Establish quit date with patient; Discuss prior cessation attempts; Discuss preferred method of cessation and plan; Discuss barriers to smoking cessation; Discuss smoking status with patient Decrease Wound Volume by X% by date (in notes) Give provider list of wound care supplie s; Refill wound care supplies; Send Wound Care Supplies; Provide caregiver with wound care procedure information; Educate caregiver on proper wound care procedures; Document patient eligibility for HBO; Assess patient for HBO treatment; Record wound depth; Record total wound area; Measure wound progress Patient and Caregiver Unders tand Wound Care Education Provide caregiver with wound care proced ure information; Educate caregiver on proper wound care procedures; Give provider list of wound care supplies; Refill wound care supplies; Send Wound Care Supplies
--- OUTSIDE RECORDS SUMMARY | 2025-06-13 12:20 | XMS_ITS | Clinical Summary ---
Author Organization [employer] Address [address] [facility] 7t [place] [address] Care Team Providers Care Conference Services Director Name Role Phone Irvin Zapata MD Unavailable [phone] Raj Sebastian Unavailable Mallorie Rosado Unavailable [phone] Jaqui Bowman MD Unavailable [phone] Jcarlos Archer MD Unavailable Salinas Albert MD Unavailable [phone] Rain Del Castillo MD Unavailable Provider, Not In System Primary Care Provider [...] Blood Gluc Sensor (FreeStyle Jenifer 3 Sensor) [facility] 2 Active Lantus SoloStar 100 UNIT/ML pen 2 Active HumaLOG KWIKPEN 100 UNIT/ML injection 2 Active BD Pen Needle Kelsi U/F 32G X 4 MM [facility] 05/27/20 2 2 Active Xarelto 20 MG [...] polyneuropathy, with long-term current use of insulin ([facility]),Benign prostatic hyperplasia (BPH) with urinary urge incontinence [...] elsewhere 09/25/2022 Neuropathic ulcer of right foot ([facility]) 2022 Iron deficiency anemia secon mikey to inadequate dietary iron intake 09/25/2022 Alcoholism in remission ([facility]) 07/05/2022 Overview (10/09/2022): History of psychotic episode in setting of heavy alcohol use. Patient is now abstinent. Essential hypertension 07/05/2022 Assessment & Plan (10/13/2023 12:04 PM EDT): BP controlled. Continue current medication. Assessment & Plan (06/16/2023 8:36 AM EST): Decrease metoprolol succinate to 50 mg daily. Will recheck BP and symptoms at next follow-up. Morbid obesity ([facility]) 07/05/2022 Overview (09/01/2023): Obesity contributing to diabetes, hypertension, HLD, LEYLA. Assessment & Plan (09/01/2023 10:03 AM EST): Body mass index is 38.77 kg/m . Hypertrophic cardiomyopathy ([facility]) 10/30/2021 Overview (10/09/2022): Followed by [facility]. Type 2 diabetes mellitus wit h hyperglycemia, with long-term current use of insulin 10/30/2021 Overview (09/01/2023): Followed by Jaqui Bowman MD. Assessment & Plan (09/01/2023 10:06 AM EST): Lab Results Component Value Date HGBA1C 11.2 (H) 10/09/2022 BG today 163. Repeat labs with next routine blood draw. Complete heart block ([facility]) 07/03/2021 Overview (09/25/2022): Last Assessment & Plan: [...] he is not using Bipolar 1 disorder ([facility]) 09/21/2020 Overview (10/13/2023): Currently managed by psychiatry. [...] Dr Bowman for this. Asthma-COPD overlap syndrome ([facility]) 0 Overview (09/25/2022): Last Assessment & Plan: Therefore, 55-year-old former smoker with asthma and COPD complains of frequent shortness of breath and cough. It appears he has had a cough on and off for several months now but this more recent worsening he reports is for a couple of months - perhaps less, because he was feeling well when he saw his medical economics consultant on June 04. He is observed to be coughing while the district medical examiner is taking his vitals but I did [...] 2 diabetes mellitus wit h complication, with keno terminal operator current use of insulin pump 05/28/2017 Overview [...] 04/28/2024 Bipolar affective disorder, currently manic, mild ([facility]) 07/05/2022 09/25/2022 Acute kidney injury 01/18/2021 09/01/19 [...] Department Care Team Description 05/24/2025 Orders Only [facility] [address] [place] [address] Provider, Not In System 03/14/2025 Patient Outreach [address] [address] Denise Velez, RN Error (VOID this visit) from Last 3 Months Immunizations Immunization Administration Dates Next Due Influenza Injectable Quadriv alant Preservative Free IIV4 MDCK 04/24/2023 Influenza injectable quadriv alent IIV4 with preservative 05/09/2021 Influenza injectable quadriv alent preservative free 05/22/2022,05/22/2020,06/10/2018,05/28 Influenza, IIV3, injectable 06/04/2019 Influenza, Injectable, MDCK, preservative free 04/14/2024 Moderna Covid-19 Vaccine 12+ 10/23/2021, 04/11/2021,11/07/2020,10/10 Novel [id number] 06/24/2009 Pfizer Covid-19 Vaccine 12+ Bivalent 05/22/2022 [...] the past 12 months, has t he [employer], [employer], oil or water [email or web address] threatened to shut off services in your [...] REMOVED- GI R ECOMMENDATION 3 YEARS Result [facility] Historical Provider HEALTH MAINTENANCE Final Result * Hepatitis C Antibody with Reflex to HCV, RNA, Quantitative, Real-Time PCR (10/13/2023 11:50 AM EDT) Pathologist [facility] Hepatitis C Antibody NON-REACT SHAHAB NON-REACT SHAHAB [employer] Comment: HCV antibody was non-reactive. There is no laboratory evidence of HCV infection. In most cases, no further action is required. However, if recent HCV exposure is suspected, a test for HCV RNA (test code 66603) is suggested. For additional information please refer to http://education.P[employer]jur/faq/QGK31t7 (This link is being provided for informational/ educational purposes only.) Blood Venous blood specimen / Unknown 10/13/2023 11:50 AM EDT 10/13/2023 11:51 AM EDT Narrative [facility] - 10/14/2023 12:31 PM EDT FASTING:NO FASTING: NO Result [facility] Sharon Quijano [facility] BLOOD ORDERABLES Final Result [facility] [address], [place] [address] [employer] [facility] [address] [place] [address] * Albumin/Creatinine Ration, Timed Urine (09/24/2023) Urine Urine specimen obtained by clean catch procedure / Unknown Result [facility] Sharon Quijano [facility] URINE ORDERABLES Final Result * Lung Cancer Screning (09/22/2023) [facility] Lung CT LUNGRADS 2 LUNGRADS 1, LUNGRADS 2 Comment:see report Anatomical Region Laterality Modality Other Result [facility] Historical Provider HEALTH MAINTENANCE Final Result * Diabetes Eye Exam (08/25/2023 10:35 AM EST) us Not In System Provider HEALTH MAINTENANCE Edited Result - Final * HIV AB-AG W/RFLX TO HIV QNT (10/30/2021 4:49 PM EDT) RESULT 4TH GEN HIV AB-AG NEGATIVE (NEG) [facility] 10/30/2021 4:49 PM EDT us Historical Provider HISTORICAL/NON ORDERABLE LABS Final Result [facility] [address] from Last 3 Months or Most Recently Relevant to Health Maintenance [place] [address] [place] [address] [address] [place] [address] [place] [address] [id number] [address] [place] [id number] Care Teams Conference Services Director Relationship Specialty Start Date End Date Provider, Not In System PCP - General Family Medicine 03/14/25 Irvin Zapata MD [address] [place] [address] Gastroenterology 04/28/24 Raj Sebastian [address] [place] [address] Podiatry 04/28/24 Mallorie Rosado [address] [place] [address] Cardiology 04/28/24 Jaqui Bowman MD [address] [facility], [address] [place] [address] Endocrinology 04/28/24 Jcarlos Archer MD [address] [place] [address] Pulmonary Disease 04/28/24 Salinas Albert MD [address] [place] [address] FAX ([address] [place] [address] Urology 04/28/24 Rain Del Castillo MD [address] [place] [address], [address] [place] [address] Neurology 04/28/24 Jeremy Oconnor Psychiatrist 04/28/24 Vasu Angulo Psychologist 04/28/24
[2025-06-13 12:29] LABS: Alanine Aminotransferase 15 U/L (0-40); Albumin Level 3.9 g/dL (3.5-5.0); Alkaline Phosphatase 66 U/L (39-117); Anion Gap 15 (12-20); Aspartate Amino Transferase 23 U/L (5-37); Blood Urea Nitrogen 18 mg/dL (9-16); Calcium 9.2 mg/dL (8.4-10.2); Carbon Dioxide 20 mmol/L (22-29); Chloride 106 mmol/L (96-108); Cholesterol 141 mg/dL (<200); Estimated Glomerular Filt Rate > 60; HDL Cholesterol 25 mg/dL (>40); Potassium 4.6 mmol/L (3.3-5.1); Sodium 136 mmol/L (135-145); Total Protein 7.1 g/dL (6.5-8.0); Triglycerides 148 mg/dL (<150)
[2025-06-13 13:10] LABS: Folate 9.2 ng/mL (> or = 4.0); Vitamin B12 521 pg/mL (200-900)
[2025-06-13 16:21] LABS: Appearance Urine Clear; Glucose Urine UA >=1000 mg/dL (Negative); PH 5.5 (5.0-9.0); Specific Gravity - Urine >= 1.030 (1.005-1.025); UMIC TRIGGER UACC YES
[2025-06-13 17:37] LABS: Microalbum/Creatinine Ratio Ur 19.1 ug/mg cr (<30)
== END 2025-06-13 10:30 | disposition home or self-care (01) ==
LOC: HO.LAB 10:29
PROVIDERS: PCP Internal Medicine; Visit Provider Internal Medicine
DX: E53.8 Deficiency of other specified B group vitamins (principal); E78.00 Pure hypercholesterolemia, unspecified; D64.9 Anemia, unspecified; E55.9 Vitamin D deficiency, unspecified; R30.0 Dysuria; E11.42 Type 2 diabetes mellitus with diabetic polyneuropathy; E11.43 Type 2 diabetes mellitus with diabetic autonomic (poly)neuropathy; E11.621 Type 2 diabetes mellitus with foot ulcer; L97.519 Non-pressure chronic ulcer of other part of right foot with unspecified severity; R26.81 Unsteadiness on feet; I48.20 Chronic atrial fibrillation, unspecified; J44.9 Chronic obstructive pulmonary disease, unspecified; G47.00 Insomnia, unspecified; F31.60 Bipolar disorder, current episode mixed, unspecified; E66.9 Obesity, unspecified; Z51.81 Encounter for therapeutic drug level monitoring; Z79.4 Long term (current) use of insulin; Z79.84 Long term (current) use of oral hypoglycemic drugs; Z79.01 Long term (current) use of anticoagulants; Z79.899 Other long term (current) drug therapy; Z68.37 Body mass index [BMI] 37.0-37.9, adult
CPT/HCPCS: 36415; 80053; 80061; 80164; 81001; 82043; 82140; 82306; 82570; 82607; 82746; 83036; 84443; 85025; 96127; 99212

== ENCOUNTER 2025-06-13 14:28 | Outpatient (AMB) | payer MEDICARE, BC, SELFPAY ==
[2025-06-13 14:30] VITALS: BP 110/70; PULSE 64; O2SAT 94; BMI 37.6
--- NOTE | 2025-06-13 14:30 | MHC.PC.OV ---
Vital Signs 06/13/25 14:30 Height 5 ft 10 in Weight 262 lb 6 oz BMI 37.6 BP 110/70 Blood Pressure Location Lt brachial Position Sitting Pulse 64 Pulse Source Pulse Oximeter Pulse Oximetry (%) 94 Oxygen Delivery Method Room Air Intake Visit Reasons: DM, chronic right foot ulcer Poultry Packer Required: No Accompanied by: Self / Same As Patient Allergies Sulfa (Sulfonamide Antibiotics) Allergy (Severe, Verified 06/13/25 15:05) Rash bupropion Adverse Reaction (Severe, Verified 06/13/25 15:05) manic olanzapine Adverse Reaction (Severe, Verified 06/13/25 15:05) weight gain Medication List - Last Reconciled 06/13/25 by Phil Voss MD atorvastatin 20 mg PO BEDTIME cholecalciferol (vitamin D3) 50 mcg PO DAILY 90 days clonazepam 1 mg PO DAILY divalproex ER (Depakote ER) 2,000 mg PO DAILY iayfwenzzve-kxelaohca-srcibwar 100-62.5-25 mcg (Trelegy Ellipta) 1 inh inhalation DAILY insulin glargine (Basaglar KwikPen U-100 Insulin) 46 units subcut QAM insulin lispro (Humalog KwikPen (U-100) Insulin) 15 units subcut TID lumateperone (Caplyta) 42 mg PO DAILY metformin 2,000 mg PO BEDTIME metoprolol succinate ER 50 mg PO DAILY pregabalin 200 mg PO BID rivaroxaban (Xarelto) 20 mg PO QPM Tobacco use date assessed: 06/13/25 Dental Screening Dental Screen Date: 06/13/25 Did you have a dental visit in the last 12 months?: Yes Did you have a dental problem in the last 6 months where you did not have access to dental care?: No Was dental information given to patient?: Patient has dentist HPI DM, chronic right foot ulcer HPI Details Patient comes in today for his follow up visit States that he has multiple issues that he would like to discuss and go over He recently sent in a portal message that states that his AI generated an overall health plan for him that includes referrals to several different specialties to help coordinate his care for his numerous medical conditions He is currently seeing cardiology at [facility] in [place] for follow up and management of his atrial fibrillation and cardiac issues and he plans to continue to see them States that he just had a repeat echocardiogram done recently He has been seeing endocrinology over at [facility] but would like to try switching over to endocrinology at [place] instead He is also now going to [facility] for management of his anxiety and depression He continues to experience symptoms of diabetic neuropathy and admits that he uses 'medical marijuana' to help with his pain He denies any headaches or dizziness Denies any recent exertional chest pains or increased shortness of breath No nausea/vomiting, no abdominal pain No change in bowel habits noted He had his follow up labs done earlier today - to discuss his results [facility] Medical History Vitamin D deficiency Chronic ulcer of right foot Diabetic neuropathy Bipolar disorder Chronic atrial fibrillation Asthma-COPD overlap syndrome Obesity (BMI 30-39.9) Insomnia Pure hypercholesterolemia Diabetes mellitus Pacemaker Surgical History Status post biventricular cardiac pacemaker insertion (~08/2021) Family History Other Mesothelioma Social History Housing: House Patient Tobacco Use Status: Former Tobacco user Tobacco use type: Cigarette e-Cigarette/Vaping Use: Currently Using Second Hand Smoke Exposure: No service: No Current occupational status: retired Current occupational exposures/hazards: No Cognitive needs: No Hearing needs: No Vision needs: No Questionnaire PHQ-9 Over the last 2 weeks, how often have you been bothered by any of the following problems? 1. Little interest or pleasure in doing things: several days 2. Feeling down, depressed, or hopeless: several days 3. Trouble falling or staying asleep, or sleeping too much: several days 4. Feeling tired or having little energy: several days 5. Poor appetite or overeating: several days 6. Feeling bad about yourself - or that you are a failure or have let yourself or your family down: several days 7. Trouble concentrating on things, such as reading the newspaper or watching television: several days 8. Moving or speaking so slowly that other people could have noticed. Or the opposite - being so fidgety or restless that you have been moving around a lot more than usual: several days 9. Thoughts that you would be better off or of hurting yourself in some way: not at all Total score: 8 Depression Screening Interpretation: Positive Depression Screening Follow-up: Existing condition and In treatment Depression Screening Done: Yes 17935 - PHQ-9 Billing: Yes Source: Developed by Drs. Tone Vogt, Dinora Damon, Jovan Shaikh and colleagues, with an educational kayla from [employer]. Thrive Questionnaire Date Thrive assessed: 06/13/25 I am a: Patient What is your living situation today?: I have a steady place to live Within the past 12 months, did the food you bought not last and you didn't have the money to get more?: Never true Within the past 12 months, did you worry whether your food would run out before you got money to buy more?: Never true Do you have trouble paying for medicines?: No Do you have trouble getting transportation to medical appointments?: No Do you have trouble paying your heating and electricity bill?: No Do you have trouble taking care of your child, family member or friend?: No Do you have trouble with day-to-day activities such as bathing, preparing meals, shopping, managing finances, etc.?: Yes Are you currently unemployed and looking for a job?: No Are you interested in more education?: No Please select the resources that you would like help with: None Currently or been in a relationship where the following occur: No concerns reported THRIVE Score: 0 AUDIT C Alcohol Use Questionnaire (AUDIT-C) 1. How often do you have a drink containing alcohol?: Never 3. How often do you have six or more drinks on one occasion?: Never Total Score: 0 Score Reviewed/Action Taken: Yes TIMI-7 AMB Questionnaire TIMI-7 Date TIMI - 7 assessed: 06/13/25 Feeling nervous, anxious, or on edge: 2 = More than half the days Not being able to stop or control worryin = Several days Worrying too much about different things: 1 = Several days Trouble relaxin = More than half the days Being so restless that it is hard to sit still: 1 = Several days Becoming easily annoyed or irritable: 1 = Several days Feeling afraid as if something awful might happen: 1 = Several days Total TIMI-7 score (0-4 normal; 5-9 mild; 10-14 moderate; 15-21 severe): 9 Source: Developed by Drs. Tone Vogt, Dinora Damon, Jovan Shaikh and colleagues, with an educational kayla from [employer]. Review of Systems Const Denies chills, Denies fatigue, Denies fever(s) and Denies headache(s) ENT Denies dysphagia, Denies dizziness, Denies otalgia, Denies headache(s), Denies neck pain, Denies odynophagia and Denies sore throat Card Denies chest pain, Denies rapid heart rate, Denies irregular heart rhythm, Denies palpitations and Denies dyspnea Resp Denies chest congestion, Denies cough and Denies dyspnea GI Denies abdominal pain, Denies constipation, Denies dysphagia, Denies heartburn, Denies diarrhea, Denies nausea, Denies odynophagia and Denies vomiting Denies difficulty urinating, Denies dysuria, Reports nocturia and Reports urinary frequency Musc Denies back pain, Denies arthralgias, Denies neck pain, Reports numbness (over both lower extremities) and Reports tingling (over both lower extremities) Skin/Breast Details: (+) poorly-healing chronic ulcer on the plantar aspect of the right foot Denies rash Neuro Denies dizziness, Denies headache(s), Reports numbness (over both lower extremities), Reports tingling (over both lower extremities) and Denies paresthesias Psych Denies anxiety and Denies depression Endo Denies fatigue and Denies palpitations Physical exam (Primary Care) Vital Signs: Last Vital Signs Pulse 64 06/13/25 14:30 BP 110/70 06/13/25 14:30 Pulse Ox 94 06/13/25 14:30 Oxygen Delivery Method Room Air 06/13/25 14:30 BMI result Body Mass Index 37.6 Tobacco/Smoking Status: Tobacco use Status Tobacco use date assessed 06/13/25 06/13/25 14:40 Patient Tobacco Use Status Former Tobacco user 06/13/25 14:40 Tobacco use type Cigarette 06/13/25 14:40 e-Cigarette/Vaping Use Currently Using 06/13/25 14:40 PHQ-9: PHQ-9 Score PHQ-9: Total score 8 11/17/25 10:02 Depression Screening Interpretation: Positive Depression Screening Follow-up: Existing condition and In treatment Thrive Assessment: Date of Thrive Assessment Date Thrive assessed 06/13/25 06/13/25 14:40 Currently or been in a relationship where the following occur: No concerns reported Const General: no acute distress and alert HENMT Ears: TM's normal bilaterally and EAC's normal Throat: Yes posterior oropharynx normal and Yes tonsils normal (no TP congestion) Neck Neck: Yes supple and No lymphadenopathy Thyroid: Thyroid normal Resp Auscultation: clear to auscultation bilaterally, no rales and no wheezes Cardio Rate: regular rate Rhythm: abnormal rhythm irregularly irregular Heart sounds: no murmurs GI Palpation (GI): Soft to palpation and nontender Auscultation: normal bowel sounds General: Yes no CVA tenderness Back/Spine/Pelvis Back: no CVA tenderness Thoracic/Lumbar Spine: No lumbar spinal tenderness Skin Rashes: no rashes Extrem Other: right foot is covered in bandages and is not examined General: Yes no clubbing, cyanosis or edema Results Reviewed Results Reviewed: Laboratory Tests 06/13/25 11:08 WBC 8.5 Hgb 13.8 L Hct 41.1 L Plt Count 217 Sodium 136 Potassium 4.6 Creatinine 0.78 Estimated GFR > 60 Fasting Glucose 298 H Hemoglobin A1c % 11.1 H Calcium 9.2 AST 23 ALT 15 Triglycerides 148 Cholesterol 141 LDL Cholesterol, Calc 87 HDL Cholesterol 25 L Vitamin B12 521 25-OH Vitamin D Total 18.2 L TSH 1.37 Valproic Acid 93.0 Coding Level of Care Code Est Pt Level 4 (87757) Complex EM visit Add On G2211 Diagnoses Type 2 diabetes mellitus with diabetic polyneuropathy, with long-term current use of insulin E11.42; Z79.4 Diabetes mellitus complication detail: with polyneuropathy Diabetes mellitus complication status: with neurologic complications Diabetes mellitus termite control representative insulin use: with termite control representative use Diabetes mellitus type: type 2 Diabetic autonomic neuropathy associated with type 2 diabetes mellitus E11.43 Diabetes mellitus complication detail: diabetic autonomic neuropathy Diabetes mellitus type: type 2 Ulcer of foot, chronic, right, with unspecified severity L97.519 Non-pressure ulcer stage: unspecified non-pressure ulcer stage Unsteady gait R26.81 Pure hypercholesterolemia E78.00 Chronic atrial fibrillation I48.20 Asthma-COPD overlap syndrome J44.9 Vitamin D deficiency E55.9 Insomnia, unspecified type G47.00 Insomnia type: unspecified Bipolar affective disorder, current episode mixed, current episode severity unspecified F31.60 Active/Remission status: currently active Current bipolar episode type: mixed Current episode severity: unspecified Obesity (BMI 30-39.9) E66.9 Additional Codes PHQ-9 - 88024 - PHQ-9 Billing: Yes ([id number]) Assessment & Plan Assessment & Plan (1) Diabetes mellitus: Code(s): E11.9 - Type 2 diabetes mellitus without complications Category: Medical Qualifiers: Diabetes mellitus complication detail: with polyneuropathy Diabetes mellitus complication status: with neurologic complications Diabetes mellitus jail insulin use: with termite control representative use Diabetes mellitus type: type 2 Qualified Code(s): E11.42 - Type 2 diabetes mellitus with diabetic polyneuropathy; Z79.4 - jail (current) use of insulin Plan: His HgbA1c is at 11.1% on his labs done earlier this morning (it was previously at 11.3% back on 03/04/2025) - goal is at least <7.0% Reinforced diabetic diet He is currently on Basaglar 46 units Q AM, Humalog Kwikpen 15 units TID with meals and Metformin ER 2000 mg Q HS He was seeing endocrinology at [facility] for his diabetes management but is requesting to be referred to endocrinology at [place] - referral placed Have advised patient to continue on his current Rx for now and to continue following up with his current voice over artist at [facility] until he is seen by his new voice over artist at [place] (2) Diabetic neuropathy: Code(s): E11.40 - Type 2 diabetes mellitus with diabetic neuropathy, unspecified Category: Medical Qualifiers: Diabetes mellitus complication detail: diabetic autonomic neuropathy Diabetes mellitus type: type 2 Qualified Code(s): E11.43 - Type 2 diabetes mellitus with diabetic autonomic (poly)neuropathy Plan: Continue Pregabalin 200 mg BID (3) Chronic ulcer of right foot: Comment: on the ball of the foot Code(s): L97.519 - Non-pressure chronic ulcer of other part of right foot with unspecified severity Category: Medical Qualifiers: Non-pressure ulcer stage: unspecified non-pressure ulcer stage Qualified Code(s): L97.519 - Non-pressure chronic ulcer of other part of right foot with unspecified severity Plan: Right foot x-rays done back in December 2022 revealed (+) mild degenerative changes PIP and DIP joints and soft tissue ulceration along the plantar aspect of the great toe with NO underlying bony abnormality seen and NO periosteal thickening or elevation to suggest any osteomyelitis He has been following up with [facility] in [place] regularly for his right foot ulcer over the past couple of years and will continue to do so (4) Unsteady gait: Code(s): R26.81 - Unsteadiness on feet Category: Medical Plan: Have advised patient that his unsteady gait and poor balance are most likely related to his diabetic neuropathy Per request, we previously referred him to [facility] for evaluation for home physical therapy to help improve his gait and balance (5) Pure hypercholesterolemia: Code(s): E78.00 - Pure hypercholesterolemia, unspecified Category: Medical Plan: Results of his labs done earlier today reviewed and discussed with patient Reinforced low cholesterol diet Continue Atorvastatin 20 mg QD Will have patient recheck his labs and fasting lipids in 3 months for follow up (6) Chronic atrial fibrillation: Code(s): I48.20 - Chronic atrial fibrillation, unspecified Category: Medical Plan: S/P pacemaker insertion in August 2021 Patient currently remains asymptomatic from a cardiac standpoint Continue Xarelto 20 mg Q PM for thromboembolism prophylaxis, Metoprolol ER 50 mg QD He used to also be on Amiodarone 200 mg BID but this appears to have been discontinued by cardiology at this time Follow up with cardiology and with EPS specialist in [place] as scheduled (7) Asthma-COPD overlap syndrome: Code(s): J44.9 - Chronic obstructive pulmonary disease, unspecified Category: Medical Plan: Continue Trelegy Ellipta 100-62.5-25 mcg 1 inhalation QD and Albuterol HFA 2 inhalations Q 6 hours PRN Follow up with pulmonary as scheduled (8) Vitamin D deficiency: Code(s): E55.9 - Vitamin D deficiency, unspecified Category: Medical Plan: Continue Vitamin D3 2000 units QD (9) Insomnia: Code(s): G47.00 - Insomnia, unspecified Category: Medical Qualifiers: Insomnia type: unspecified Qualified Code(s): G47.00 - Insomnia, unspecified Plan: Sleep hygiene reinforced He takes Clonazepam 1 mg Q HS 30 minutes before bedtime (10) Bipolar disorder: Code(s): F31.9 - Bipolar disorder, unspecified Category: Medical Qualifiers: Active/Remission status: currently active Current bipolar episode type: mixed Current episode severity: unspecified Qualified Code(s): F31.60 - Bipolar disorder, current episode mixed, unspecified Plan: Continue Caplyta 42 mg QD and Depakote ER 2000 mg QD He used to follow up with his psychiatric nurse (METAL RIVETER) at [facility] in [place], [place] but is now seeing psychiatry with [facility] - to follow up as scheduled Patient was also reportedly evaluated further by psychiatry up at the [facility] in [place] a few months ago - states that this was a second opinion with regards to his diagnoses of bipolar disorder as he feels that he was wrongfully diagnosed in the past (11) Obesity (BMI 30-39.9): Code(s): E66.9 - Obesity, unspecified Category: Medical Plan: Reinforced diet/exercise as tolerated/lose weight Plan Follow-up in 3 months Orders: Orders Comprehensive [place]. Panel Fast 3 Months E78.00 - Pure hypercholesterolemia, unspecified Hemoglobin A1c 3 Months E11.9 - Type 2 diabetes mellitus without complications Complete Blood Count Auto Diff 3 Months D64.9 - Anemia, unspecified Lipid Panel 3 Months E78.00 - Pure hypercholesterolemia, unspecified TSH reflex Free T4 3 Months E78.00 - Pure hypercholesterolemia, unspecified UA CC w/rflx Micro + Cult 3 Months R30.0 - Dysuria Microalbumin, Random (w Creat) 06/13/25 E11.9 - Type 2 diabetes mellitus without complications Referrals Endocrinology Referral E11.42 - Type 2 diabetes mellitus with diabetic polyneuropathy, Z79.4 - termite control representative (current) use of insulin
== END 2025-06-13 15:20 | disposition home or self-care (01) ==
LOC: HO.HMCH 14:28
PROVIDERS: PCP Internal Medicine; Visit Provider Internal Medicine
DX: E11.42 Type 2 diabetes mellitus with diabetic polyneuropathy (principal); Z79.4 Long term (current) use of insulin; E11.43 Type 2 diabetes mellitus with diabetic autonomic (poly)neuropathy; L97.519 Non-pressure chronic ulcer of other part of right foot with unspecified severity; I48.20 Chronic atrial fibrillation, unspecified; J44.9 Chronic obstructive pulmonary disease, unspecified; F31.60 Bipolar disorder, current episode mixed, unspecified; R26.81 Unsteadiness on feet; E78.00 Pure hypercholesterolemia, unspecified; E55.9 Vitamin D deficiency, unspecified; G47.00 Insomnia, unspecified; E66.9 Obesity, unspecified